=== PATIENT | male | born 1945 | race African-American/Black ===

== ENCOUNTER 2021-07-19 01:21 | Inpatient (IN) | payer OTHER ==
[2021-07-19] MEDS ORDERED: RAPID SEQUENCE INTUBATION KIT NR ONE (01:27)
[2021-07-19] MEDS ORDERED: ETOMIDATE 40 MG/20 ML VIAL IVPUSH ONE (01:35)
[2021-07-19] MEDS ORDERED: ROCURONIUM BROMIDE 50 MG/5 ML VIAL IVPUSH ONE (01:37)
[2021-07-19] MEDS ORDERED: SODIUM CHLORIDE 0.9% 500 ML INFUS.BAG IV ONE (01:44)
[2021-07-19 02:23] LABS: BASO % 0.5 % (0-2.0); EOS % 0.6 % (0-4.5); HEMATOCRIT 36.2 % (35.4-49); HEMOGLOBIN 11.2 GM/dL (11.7-16.9); LYMPH % 15.9 % (8-40); MCH 32.5 pg (25.7-33.7); MCHC 30.9 g/dl (32.0-35.9); MEAN CELL VOLUME 105.1 fl (80-96); MONO % 7.3 % (3.8-10.2); NEUT % 75.7 % (42.8-82.8); PLATELET COUNT 159 10^3/uL (134-434); RBC 3.45 M/mm3 (4.00-5.60); RDW 14.8 % (11.9-15.9); WHITE BLOOD COUNT 16.8 K/mm3 (4.0-10.0)
[2021-07-19] MEDS ORDERED: FENTANYL IVPB 500 MCG/100 ML BAG IVPB SCH ×2 (02:28→02:45)
[2021-07-19 02:30] LABS: INR 1.12 (0.83-1.09); PROTHROMBIN TIME (PATIENT) 13.1 SEC (9.7-13.0)
[2021-07-19 02:32] LABS: EPI CELLS >36 /uL (0-25.1); HYALINE CASTS 21 /uL (0-3.1); PH,URINE 5.5 (5.0-8.0); URINE APPEARANCE TURBID; URINE BACTERIA 4972 /uL (0-1359); URINE BILIRUBIN NEGATIVE (NEGATIVE); URINE COLOR YELLOW; URINE GLUCOSE (UA) NEGATIVE (NEGATIVE); URINE KETONE NEGATIVE (NEGATIVE); URINE LEUK ESTERASE 3+ (NEGATIVE); URINE NITRITE POSITIVE (NEGATIVE); URINE PROTEIN 3+ (NEGATIVE); URINE UROBILINOGEN 0.2 mg/dL (0.2-1.0); URINE WBC 25887 /uL (0-25.8)
[2021-07-19 02:32] LABS: LACTIC ACID 2.5 mmol/L (0.4-2.0)
[2021-07-19 02:33] LABS: ACTIVATED PTT 29.2 SECONDS (25.2-36.5)
[2021-07-19] MEDS ORDERED: VANCOMYCIN 1 GM in D5W (PRE-DOCKED) 1,000 MG/250 ML IVPB ONE (02:36)
[2021-07-19] MEDS ORDERED: PIPERACILLIN/TAZOB 4.5 GM 4.5 GM in DEXTROSE 5%-WATER 100 ML IVPB ONE (02:36)
[2021-07-19 02:37] LABS: BLOOD UREA NITROGEN 94.3 mg/dL (7-18); CALCIUM 11.4 mg/dL (8.5-10.1)
[2021-07-19] MEDS ORDERED: MIDAZOLAM HCL 2 MG/2 ML SINGLE DOSE VIAL IVPUSH ONE (02:39)
[2021-07-19] MEDS ORDERED: MIDAZOLAM HCL 2 MG/2 ML SINGLE DOSE VIAL ONE (02:40)
[2021-07-19 02:41] LABS: CREATININE 5.3 mg/dL (0.55-1.3)
[2021-07-19 02:42] LABS: BILIRUBIN,TOTAL 0.4 mg/dL (0.2-1); TOT PROT 7.8 g/dl (6.4-8.2)
[2021-07-19] MEDS ORDERED: PIPERACILLIN/TAZOB 3.375 GM 3.375 GM in DEXTROSE 5%-WATER - 50 ML IVPB ONE (02:43)
[2021-07-19] MEDS ORDERED: FENTANYL NS IVPB 500 MCG/100 ML BAG IVPB ONE (02:44)
[2021-07-19] MEDS ORDERED: SODIUM CHLORIDE 0.45% 1,000 ML IV SCH ×3 (02:45→08:15)
[2021-07-19] MEDS: FENTANYL NS IVPB 500 MCG/100 ML BAG IVPB SCH ×2 (02:53→21:28)
[2021-07-19] MEDS ORDERED: MIDAZOLAM IN 0.9 % SOD.CHLORID 1 MG/1 ML PLAST..BAG ONE (02:58)
[2021-07-19 03:03] LABS: YEAST NONE SEEN (NEGATIVE)
[2021-07-19] MEDS: MIDAZOLAM IN 0.9 % SOD.CHLORID 100 MG/100 ML PLAST..BAG IVPB SCH ×2 (03:09→21:27)
[2021-07-19] MEDS ORDERED: PIPERACILLIN/TAZOB 3.375 GM 3.375 GM/50 ML BAG IVPB ONE (03:12)
[2021-07-19] MEDS ORDERED: VANCOMYCIN 1 GRAM (PRE-DOCKED) 1,000 MG/250 ML BAG IVPB ONE (03:46)
[2021-07-19 04:03] LABS: ARTERIAL BLD GAS O2 SATURATION 91.7 % (95-98); ARTERIAL BLOOD GAS BASE EXCESS -0.2 mmol/L (-2-2); ARTERIAL BLOOD GAS PO2 65.2 mmHg (80-100); ARTERIAL BLOOD GAS pH 7.351 (7.350-7.450)
[2021-07-19 04:04] LABS: ALLENS TEST POSITIVE
[2021-07-19 04:05] LABS: VENT MODE A/C; VENT RATE 20
[2021-07-19] MEDS: INSULIN SLIDING SCALE (NOVOLOG) 1 VIAL SQ SCH ×4 (06:20→22:16)
[2021-07-19] MEDS ORDERED: DEXTROSE 50%-WATER 25 GM/50 ML DISP.SYRIN ONE (06:22)
[2021-07-19] MEDS: HEPARIN NA (PORCINE) 5,000 UNITS/ML 1ML VIAL SQ SCH ×3 (06:23→21:23)
[2021-07-19] MEDS ORDERED: DEXTROSE 50%-WATER - 25 GM/50 ML VIAL IVPUSH ONE ×2 (06:27→08:32)
[2021-07-19 07:08] LABS: HEMATOCRIT 34.9 % (35.4-49); HEMOGLOBIN 11.2 GM/dL (11.7-16.9); MCH 33.2 pg (25.7-33.7); MCHC 32.1 g/dl (32.0-35.9); MEAN CELL VOLUME 103.3 fl (80-96); MEAN PLT VOLUME 9.1 fl (7.5-11.1); PLATELET COUNT 151 10^3/uL (134-434); RBC 3.37 M/mm3 (4.00-5.60); RDW 14.1 % (11.9-15.9); WHITE BLOOD COUNT 6.7 K/mm3 (4.0-10.0)
[2021-07-19 07:29] LABS: CALCIUM 10.5 mg/dL (8.5-10.1)
[2021-07-19 07:30] LABS: ALBUMIN 2.5 g/dl (3.4-5.0); MAGNESIUM 2.4 mg/dL (1.8-2.4)
[2021-07-19 07:33] LABS: CREATININE 5.2 mg/dL (0.55-1.3); PHOSPHOROUS 3.4 mg/dL (2.5-4.9)
[2021-07-19 07:34] LABS: BILIRUBIN,TOTAL 0.7 mg/dL (0.2-1)
[2021-07-19] MEDS ORDERED: NOREPINEPHRINE D5W PREMIX 16,000 MCG/500 ML BAG IVPB ONE (08:09)
[2021-07-19] MEDS ORDERED: SODIUM CHLORIDE 1,000 ML IV STA (08:10)
[2021-07-19] MEDS: NOREPINEPHRINE BITARTRATE 16,000 MCG in SODIUM CHLORIDE 484 ML IV SCH ×2 (08:16→21:28)
[2021-07-19] MEDS ORDERED: DEXTROSE 50%-WATER - 25 GM/50 ML VIAL ONE (08:29)
[2021-07-19] MEDS: ACETAMINOPHEN 1000 MG/100 ML VIAL IVPB PRN (08:43)
[2021-07-19] MEDS ORDERED: DEXTROSE 5%-WATER - 50 ML IVPB ONE ×2 (09:20→16:42)
[2021-07-19] MEDS ORDERED: PIPERACILLIN/TAZOBACTAM 2.25 GM VIAL IVPB ONE ×2 (09:20→16:42)
[2021-07-19] MEDS: PANTOPRAZOLE SODIUM 40 MG VIAL IVPUSH SCH (09:41)
[2021-07-19] MEDS: MUPIROCIN 2% TOPICAL OINTMENT FOR DECOLONIZATION NS SCH ×2 (09:52→21:24)
[2021-07-19] MEDS ORDERED: PIPERACILLIN/TAZOB 2.25 GM 2.25 GM in DEXTROSE 5%-WATER - 50 ML IVPB SCH (10:00)
[2021-07-19] MEDS: methylPREDNISolone NA SUCC 125 MG/2 ML VIAL IVPUSH SCH ×2 (10:52→17:00)
[2021-07-19] MEDS: DEXTROSE 5%-0.45% SALINE 1,000 ML IV SCH ×2 (11:06→21:27)
[2021-07-19 11:15] LABS: ANISOCYTOSIS 1+; MACROCYTOSIS 0; PLATELET ESTIMATE DECREASED
[2021-07-19] MEDS: VASOPRESSIN 40 UNITS/100 ML BAG IV SCH ×2 (11:28→21:28)
[2021-07-19] MEDS: PIPERACILLIN/TAZOB 2.25 GM 2.25 GM in DEXTROSE 5%-WATER - 50 ML IVPB SCH (17:01)
[2021-07-19 17:48] LABS: LACTIC ACID 2.1 mmol/L (0.4-2.0)
[2021-07-19] MEDS: CHLORHEXIDINE GLUCONATE 4% CLEANSER FOR DECOLONIZATION TP SCH (21:24)
[2021-07-19] MEDS: NOREPINEPHRINE NS PREMIX 16,000 MCG/500 ML BAG IVPB SCH (22:15)
[2021-07-20] MEDS ORDERED: PIPERACILLIN/TAZOBACTAM 2.25 GM VIAL IVPB ONE ×4 (01:20→15:37)
[2021-07-20] MEDS ORDERED: DEXTROSE 5%-WATER - 50 ML IVPB ONE ×4 (01:20→15:37)
[2021-07-20] MEDS: PIPERACILLIN/TAZOB 2.25 GM 2.25 GM in DEXTROSE 5%-WATER - 50 ML IVPB SCH ×3 (01:21→17:02)
[2021-07-20] MEDS: methylPREDNISolone NA SUCC 125 MG/2 ML VIAL IVPUSH SCH ×3 (01:21→17:04)
[2021-07-20] MEDS: FENTANYL NS IVPB 500 MCG/100 ML BAG IVPB SCH (05:32)
[2021-07-20] MEDS: MIDAZOLAM IN 0.9 % SOD.CHLORID 100 MG/100 ML PLAST..BAG IVPB SCH ×2 (05:33→17:04)
[2021-07-20] MEDS: HEPARIN NA (PORCINE) 5,000 UNITS/ML 1ML VIAL SQ SCH ×3 (05:34→20:59)
[2021-07-20] MEDS: INSULIN SLIDING SCALE (NOVOLOG) 1 VIAL SQ SCH ×4 (06:35→22:23)
[2021-07-20 06:46] LABS: BASO % 0.3 % (0-2.0); HEMATOCRIT 31.1 % (35.4-49); HEMOGLOBIN 10.1 GM/dL (11.7-16.9); LYMPH % 3.7 % (8-40); MCH 33.2 pg (25.7-33.7); MCHC 32.4 g/dl (32.0-35.9); MEAN CELL VOLUME 102.6 fl (80-96); MEAN PLT VOLUME 9.5 fl (7.5-11.1); MONO % 3.3 % (3.8-10.2); NEUT % 92.7 % (42.8-82.8); PLATELET COUNT 134 10^3/uL (134-434); RBC 3.04 M/mm3 (4.00-5.60); RDW 13.9 % (11.9-15.9); WHITE BLOOD COUNT 14.1 K/mm3 (4.0-10.0)
[2021-07-20 07:03] LABS: LACTIC ACID 3.2 mmol/L (0.4-2.0)
[2021-07-20 07:13] LABS: BLOOD UREA NITROGEN 98.8 mg/dL (7-18); CALCIUM 10.3 mg/dL (8.5-10.1)
[2021-07-20 07:14] LABS: ALBUMIN 2.2 g/dl (3.4-5.0); MAGNESIUM 2.5 mg/dL (1.8-2.4)
[2021-07-20 07:16] LABS: CREATININE 5.3 mg/dL (0.55-1.3); PHOSPHOROUS 3.6 mg/dL (2.5-4.9)
[2021-07-20 07:17] LABS: BILIRUBIN,TOTAL 0.4 mg/dL (0.2-1)
[2021-07-20 07:18] LABS: TOT PROT 6.6 g/dl (6.4-8.2)
[2021-07-20] MEDS ORDERED: SODIUM ZIRCONIUM CYCLOSILICATE (LOKELMA) 5 GM PACKET PO ONE (09:08)
[2021-07-20] MEDS ORDERED: SODIUM CHLORIDE 0.45% 1,000 ML IV SCH (09:15)
[2021-07-20] MEDS: PANTOPRAZOLE SODIUM 40 MG VIAL IVPUSH SCH (09:22)
[2021-07-20] MEDS: MUPIROCIN 2% TOPICAL OINTMENT FOR DECOLONIZATION NS SCH ×2 (10:07→20:59)
[2021-07-20] MEDS: SODIUM CHLORIDE 0.45% 1,000 ML IV SCH (11:07)
[2021-07-20 11:38] LABS: LACTIC ACID 3.1 mmol/L (0.4-2.0)
[2021-07-20] MEDS: VASOPRESSIN 40 UNITS/100 ML BAG IV SCH (12:07)
[2021-07-20 12:21] LABS: ANISOCYTOSIS 1+; MACROCYTOSIS 0; PLATELET ESTIMATE DECREASED; TEAR DROP CELLS 1+
[2021-07-20] MEDS: MEROPENEM 500 MG in DEXTROSE 5%-WATER 100 ML IVPB SCH ×2 (18:47→22:23)
[2021-07-20] MEDS: CHLORHEXIDINE GLUCONATE 4% CLEANSER FOR DECOLONIZATION TP SCH (20:59)
[2021-07-20] MEDS: NOREPINEPHRINE NS PREMIX 16,000 MCG/500 ML BAG IVPB SCH (21:36)
[2021-07-20] MEDS ORDERED: PT OWN MED DRAWER 7, Y5N ONE (22:00)
[2021-07-21] MEDS: methylPREDNISolone NA SUCC 125 MG/2 ML VIAL IVPUSH SCH ×2 (02:00→09:03)
[2021-07-21] MEDS: MIDAZOLAM IN 0.9 % SOD.CHLORID 100 MG/100 ML PLAST..BAG IVPB SCH (03:12)
[2021-07-21] MEDS: FENTANYL NS IVPB 500 MCG/100 ML BAG IVPB SCH (03:13)
[2021-07-21] MEDS: HEPARIN NA (PORCINE) 5,000 UNITS/ML 1ML VIAL SQ SCH ×2 (05:54→14:20)
[2021-07-21 06:16] LABS: ARTERIAL BLD GAS O2 SATURATION 94.6 % (95-98); ARTERIAL BLOOD GAS PO2 77.8 mmHg (80-100); ARTERIAL BLOOD GAS pH 7.318 (7.350-7.450)
[2021-07-21] MEDS: INSULIN SLIDING SCALE (NOVOLOG) 1 VIAL SQ SCH ×4 (06:18→21:54)
[2021-07-21 06:34] LABS: ALLENS TEST POSITIVE
[2021-07-21 06:35] LABS: VENT MODE A/C; VENT RATE 20
[2021-07-21 07:07] LABS: CHLORIDE 113 mmol/L (98-107); SODIUM 145 mmol/L (136-145)
[2021-07-21 07:15] LABS: ANION GAP 9 MMOL/L (8-16); CALCIUM 10.5 mg/dL (8.5-10.1); CO2 22 mmol/L (21-32)
[2021-07-21 07:16] LABS: GLUCOSE,RANDOM 99 mg/dL (74-106); MAGNESIUM 2.3 mg/dL (1.8-2.4)
[2021-07-21 07:18] LABS: CREATININE 4.5 mg/dL (0.55-1.3); SGOT/AST 50 U/L (15-37); SGPT/ALT 53 U/L (13-61)
[2021-07-21 07:19] LABS: PHOSPHOROUS 5.3 mg/dL (2.5-4.9)
[2021-07-21 07:20] LABS: BILIRUBIN,TOTAL 0.4 mg/dL (0.2-1); TOT PROT 6.4 g/dl (6.4-8.2)
[2021-07-21 07:21] LABS: ALK PHOS 57 U/L (45-117)
[2021-07-21 07:22] LABS: HEMATOCRIT 31.4 % (35.4-49); HEMOGLOBIN 10.2 GM/dL (11.7-16.9); MCH 32.9 pg (25.7-33.7); MCHC 32.3 g/dl (32.0-35.9); MEAN CELL VOLUME 101.7 fl (80-96); MEAN PLT VOLUME 9.7 fl (7.5-11.1); PLATELET COUNT 133 10^3/uL (134-434); RBC 3.09 M/mm3 (4.00-5.60); RDW 14.3 % (11.9-15.9); WHITE BLOOD COUNT 13.1 K/mm3 (4.0-10.0)
[2021-07-21 07:30] LABS: BLOOD UREA NITROGEN 116.7 mg/dL (7-18)
[2021-07-21] MEDS ORDERED: MEROPENEM 500 MG VIAL (RESTRICTED TO ID) IVPB ONE ×2 (07:55→21:27)
[2021-07-21] MEDS ORDERED: DEXTROSE 5%-WATER 100 ML IVPB ONE ×2 (07:55→21:27)
[2021-07-21] MEDS: MEROPENEM 500 MG in DEXTROSE 5%-WATER 100 ML IVPB SCH ×2 (09:00→21:29)
[2021-07-21] MEDS: PANTOPRAZOLE SODIUM 40 MG VIAL IVPUSH SCH (09:03)
[2021-07-21] MEDS: MUPIROCIN 2% TOPICAL OINTMENT FOR DECOLONIZATION NS SCH ×2 (09:03→21:53)
[2021-07-21 11:17] LABS: ANISOCYTOSIS 1+; MACROCYTOSIS 1+; PLATELET ESTIMATE DECREASED
[2021-07-21] MEDS: HYDROCORTISONE SOD SUCCINATE 100 MG/2 ML VIAL IVPUSH SCH ×2 (14:19→20:02)
[2021-07-21] MEDS: SODIUM CHLORIDE 0.45% 1,000 ML IV SCH (14:20)
[2021-07-21] MEDS: PROPOFOL 1,000,000 MCG/100 ML VIAL IVPUSH SCH ×2 (15:30→23:41)
[2021-07-21] MEDS ORDERED: METOPROLOL TARTRATE 5 MG/5 ML VIAL IVPUSH PRN (15:49)
[2021-07-21] MEDS ORDERED: NOREPINEPHRINE BITARTRATE 16,000 MCG in SODIUM CHLORIDE 484 ML IV SCH (17:30)
[2021-07-21] MEDS ORDERED: HEPARIN NA (PORCINE) 5,000 UNITS/ML 1ML VIAL IVPUSH PRN (19:18)
[2021-07-21] MEDS: CHLORHEXIDINE GLUCONATE 4% CLEANSER FOR DECOLONIZATION TP SCH (21:29)
[2021-07-21] MEDS: HEPARIN - 25,000 UNIT in SODIUM CHLORIDE 495 ML IV SCH (23:35)
[2021-07-22] MEDS: SODIUM CHLORIDE 0.45% 1,000 ML IV SCH ×2 (01:27→10:33)
[2021-07-22] MEDS: HYDROCORTISONE SOD SUCCINATE 100 MG/2 ML VIAL IVPUSH SCH (05:10)
[2021-07-22] MEDS: INSULIN SLIDING SCALE (NOVOLOG) 1 VIAL SQ SCH ×4 (06:53→21:25)
[2021-07-22 07:31] LABS: HEMATOCRIT 31.4 % (35.4-49); HEMOGLOBIN 10.1 GM/dL (11.7-16.9); MCH 32.6 pg (25.7-33.7); MCHC 32.1 g/dl (32.0-35.9); MEAN CELL VOLUME 101.6 fl (80-96); MEAN PLT VOLUME 10.2 fl (7.5-11.1); PLATELET COUNT 152 10^3/uL (134-434); RBC 3.09 M/mm3 (4.00-5.60); RDW 14.4 % (11.9-15.9); WHITE BLOOD COUNT 14.6 K/mm3 (4.0-10.0)
[2021-07-22 07:47] LABS: CHLORIDE 113 mmol/L (98-107); SODIUM 146 mmol/L (136-145)
[2021-07-22 08:07] LABS: ALBUMIN 1.8 g/dl (3.4-5.0)
[2021-07-22 08:08] LABS: CALCIUM 9.8 mg/dL (8.5-10.1)
[2021-07-22 08:09] LABS: ANION GAP 11 MMOL/L (8-16); CO2 22 mmol/L (21-32); GLUCOSE,RANDOM 135 mg/dL (74-106); SGPT/ALT 58 U/L (13-61)
[2021-07-22 08:10] LABS: ALK PHOS 64 U/L (45-117); BILIRUBIN,TOTAL 0.4 mg/dL (0.2-1); TOT PROT 6.3 g/dl (6.4-8.2)
[2021-07-22 08:11] LABS: CREATININE 4.4 mg/dL (0.55-1.3); SGOT/AST 44 U/L (15-37)
[2021-07-22] MEDS ORDERED: DEXTROSE 5%-WATER 100 ML IVPB ONE ×2 (09:28→21:12)
[2021-07-22] MEDS ORDERED: MEROPENEM 500 MG VIAL (RESTRICTED TO ID) IVPB ONE ×2 (09:28→21:11)
[2021-07-22] MEDS: HEPARIN NA (PORCINE) 5,000 UNITS/ML 1ML VIAL IVPUSH PRN ×2 (09:29→16:47)
[2021-07-22] MEDS: PANTOPRAZOLE SODIUM 40 MG VIAL IVPUSH SCH (09:35)
[2021-07-22] MEDS: MUPIROCIN 2% TOPICAL OINTMENT FOR DECOLONIZATION NS SCH ×2 (09:36→21:24)
[2021-07-22] MEDS: MEROPENEM 500 MG in DEXTROSE 5%-WATER 100 ML IVPB SCH ×2 (09:36→21:24)
[2021-07-22 10:47] LABS: ANISOCYTOSIS 0; MACROCYTOSIS 1+; PLATELET ESTIMATE DECREASED; TEAR DROP CELLS 1+
[2021-07-22] MEDS ORDERED: HYDROCORTISONE SOD SUCCINATE 100 MG/2 ML VIAL IVPUSH SCH ×2 (11:15→11:26)
[2021-07-22] MEDS ORDERED: levETIRAcetam 500 MG/5 ML INJECTION VIAL IVPB ONE (14:11)
[2021-07-22] MEDS ORDERED: LORazepam 2 MG/ML SDV VIAL IVPUSH ONE (14:30)
[2021-07-22] MEDS ORDERED: PT OWN MED DRAWER 7, Y5N ONE ×3 (15:47→23:48)
[2021-07-22] MEDS: PROPOFOL 1,000,000 MCG/100 ML VIAL IVPUSH SCH (16:43)
[2021-07-22] MEDS: NOREPINEPHRINE NS PREMIX 16,000 MCG/500 ML BAG IVPB SCH ×2 (16:44→23:30)
[2021-07-22] MEDS ORDERED: FENTANYL NS IVPB 500 MCG/100 ML BAG IVPB SCH (20:30)
[2021-07-22] MEDS: CHLORHEXIDINE GLUCONATE 4% CLEANSER FOR DECOLONIZATION TP SCH (21:24)
[2021-07-23] MEDS: SODIUM CHLORIDE 0.45% 1,000 ML IV SCH (00:03)
[2021-07-23] MEDS: INSULIN SLIDING SCALE (NOVOLOG) 1 VIAL SQ SCH ×4 (06:23→21:54)
[2021-07-23 07:58] LABS: HEMATOCRIT 29.3 % (35.4-49); HEMOGLOBIN 9.5 GM/dL (11.7-16.9); MCH 32.4 pg (25.7-33.7); MCHC 32.5 g/dl (32.0-35.9); MEAN CELL VOLUME 99.7 fl (80-96); MEAN PLT VOLUME 9.9 fl (7.5-11.1); PLATELET COUNT 131 10^3/uL (134-434); RBC 2.94 M/mm3 (4.00-5.60); RDW 14.4 % (11.9-15.9); WHITE BLOOD COUNT 11.8 K/mm3 (4.0-10.0)
[2021-07-23 08:14] LABS: CHLORIDE 115 mmol/L (98-107); SODIUM 147 mmol/L (136-145)
[2021-07-23 08:16] LABS: ANION GAP 11 MMOL/L (8-16); CALCIUM 9.4 mg/dL (8.5-10.1); CO2 21 mmol/L (21-32); GLUCOSE,RANDOM 109 mg/dL (74-106)
[2021-07-23 08:17] LABS: MAGNESIUM 2.6 mg/dL (1.8-2.4)
[2021-07-23 08:20] LABS: PHOSPHOROUS 4.8 mg/dL (2.5-4.9)
[2021-07-23 08:25] LABS: BLOOD UREA NITROGEN 137.9 mg/dL (7-18)
[2021-07-23] MEDS ORDERED: MEROPENEM 500 MG VIAL (RESTRICTED TO ID) IVPB ONE (09:01)
[2021-07-23] MEDS ORDERED: DEXTROSE 5%-WATER 100 ML IVPB ONE (09:01)
[2021-07-23] MEDS ORDERED: HYDROCORTISONE SOD SUCCINATE 100 MG/2 ML VIAL IVPUSH SCH (09:49)
[2021-07-23] MEDS: MEROPENEM 500 MG in DEXTROSE 5%-WATER 100 ML IVPB SCH ×2 (10:03→22:49)
[2021-07-23] MEDS: PANTOPRAZOLE SODIUM 40 MG VIAL IVPUSH SCH (10:04)
[2021-07-23] MEDS: levETIRAcetam 500 MG/5 ML INJECTION VIAL IVPB SCH ×2 (10:04→21:27)
[2021-07-23] MEDS: MUPIROCIN 2% TOPICAL OINTMENT FOR DECOLONIZATION NS SCH ×2 (10:09→21:48)
[2021-07-23] MEDS ORDERED: RAPID SEQUENCE INTUBATION KIT NR ONE (10:59)
[2021-07-23] MEDS: PROPOFOL 1,000,000 MCG/100 ML VIAL IVPB SCH (11:50)
[2021-07-23] MEDS: HEPARIN - 25,000 UNIT in SODIUM CHLORIDE 495 ML IV SCH ×2 (11:52→18:38)
[2021-07-23] MEDS: DEXAMETHASONE SOD PHOSPHATE 10 MG/1 ML VIAL IVPUSH SCH ×2 (11:58→18:37)
[2021-07-23] MEDS: CHLORHEXIDINE GLUCONATE 4% CLEANSER FOR DECOLONIZATION TP SCH (21:48)
[2021-07-24] MEDS: DEXAMETHASONE SOD PHOSPHATE 10 MG/1 ML VIAL IVPUSH SCH ×4 (02:44→17:30)
[2021-07-24] MEDS: PROPOFOL 1,000,000 MCG/100 ML VIAL IVPB SCH (02:47)
[2021-07-24] MEDS: INSULIN SLIDING SCALE (NOVOLOG) 1 VIAL SQ SCH ×4 (06:07→21:26)
[2021-07-24 06:42] LABS: HEMATOCRIT 27.3 % (35.4-49); HEMOGLOBIN 9.1 GM/dL (11.7-16.9); MCH 33.6 pg (25.7-33.7); MCHC 33.3 g/dl (32.0-35.9); MEAN CELL VOLUME 100.7 fl (80-96); MEAN PLT VOLUME 9.7 fl (7.5-11.1); PLATELET COUNT 127 10^3/uL (134-434); RBC 2.71 M/mm3 (4.00-5.60); RDW 14.1 % (11.9-15.9)
[2021-07-24 07:20] LABS: ANION GAP 10 MMOL/L (8-16); BLOOD UREA NITROGEN 148.6 mg/dL (7-18); CALCIUM 9.2 mg/dL (8.5-10.1); CHLORIDE 115 mmol/L (98-107); CO2 22 mmol/L (21-32); GLUCOSE,RANDOM 122 mg/dL (74-106); MAGNESIUM 2.6 mg/dL (1.8-2.4); PHOSPHOROUS 6.4 mg/dL (2.5-4.9); SODIUM 146 mmol/L (136-145)
[2021-07-24] MEDS ORDERED: DEXTROSE 5%-WATER 100 ML IVPB ONE ×2 (09:14→21:27)
[2021-07-24] MEDS ORDERED: MEROPENEM 500 MG VIAL (RESTRICTED TO ID) IVPB ONE ×2 (09:14→21:27)
[2021-07-24] MEDS: levETIRAcetam 500 MG/5 ML INJECTION VIAL IVPB SCH ×2 (09:17→21:28)
[2021-07-24] MEDS: MEROPENEM 500 MG in DEXTROSE 5%-WATER 100 ML IVPB SCH ×2 (09:17→21:28)
[2021-07-24] MEDS: PANTOPRAZOLE SODIUM 40 MG VIAL IVPUSH SCH (09:18)
[2021-07-24] MEDS ORDERED: CEFTRIAXONE 1 GM in DEXTROSE 5%-WATER - 50 ML IVPB SCH (10:00)
[2021-07-24] MEDS: DEXMEDETOMIDINE IN 0.9 % NACL 400 MCG/100 ML VIAL IVPB SCH (13:02)
[2021-07-24 13:20] VITALS: BMI 25.9
[2021-07-24] MEDS ORDERED: PT OWN MED DRAWER 7, Y5N ONE (15:51)
[2021-07-24] MEDS: CHLORHEXIDINE GLUCONATE 4% CLEANSER FOR DECOLONIZATION TP SCH (21:28)
[2021-07-25] MEDS: DEXAMETHASONE SOD PHOSPHATE 10 MG/1 ML VIAL IVPUSH SCH ×3 (02:45→19:10)
[2021-07-25 06:26] LABS: HEMATOCRIT 29.6 % (35.4-49); HEMOGLOBIN 9.7 GM/dL (11.7-16.9); MCH 32.7 pg (25.7-33.7); MCHC 32.8 g/dl (32.0-35.9); MEAN CELL VOLUME 99.6 fl (80-96); PLATELET COUNT 144 10^3/uL (134-434); RBC 2.97 M/mm3 (4.00-5.60); WHITE BLOOD COUNT 9.4 K/mm3 (4.0-10.0)
[2021-07-25] MEDS: INSULIN SLIDING SCALE (NOVOLOG) 1 VIAL SQ SCH ×4 (06:26→21:36)
[2021-07-25] MEDS: DEXMEDETOMIDINE IN 0.9 % NACL 400 MCG/100 ML VIAL IVPB SCH ×2 (06:27→21:35)
[2021-07-25 07:37] LABS: ANION GAP 10 MMOL/L (8-16); BLOOD UREA NITROGEN 146.6 mg/dL (7-18); CALCIUM 8.6 mg/dL (8.5-10.1); CHLORIDE 117 mmol/L (98-107); CO2 21 mmol/L (21-32); CREATININE 3.7 mg/dL (0.55-1.3); GLUCOSE,RANDOM 163 mg/dL (74-106); MAGNESIUM 2.3 mg/dL (1.8-2.4); PHOSPHOROUS 6.2 mg/dL (2.5-4.9); SODIUM 148 mmol/L (136-145)
[2021-07-25] MEDS ORDERED: DEXTROSE 5%-WATER 100 ML IVPB ONE ×2 (10:41→21:27)
[2021-07-25] MEDS ORDERED: MEROPENEM 500 MG VIAL (RESTRICTED TO ID) IVPB ONE ×2 (10:41→21:26)
[2021-07-25] MEDS: PANTOPRAZOLE SODIUM 40 MG VIAL IVPUSH SCH (10:51)
[2021-07-25] MEDS: MEROPENEM 500 MG in DEXTROSE 5%-WATER 100 ML IVPB SCH ×2 (10:51→21:33)
[2021-07-25] MEDS: levETIRAcetam 500 MG/5 ML INJECTION VIAL IVPB SCH ×2 (10:51→21:33)
[2021-07-25] MEDS ORDERED: SODIUM CHLORIDE 0.45% 1,000 ML IV SCH (14:45)
[2021-07-25] MEDS: CHLORHEXIDINE GLUCONATE 4% CLEANSER FOR DECOLONIZATION TP SCH (21:34)
[2021-07-25] MEDS: HEPARIN - 25,000 UNIT in SODIUM CHLORIDE 495 ML IV SCH (21:34)
[2021-07-26] MEDS: DEXAMETHASONE SOD PHOSPHATE 10 MG/1 ML VIAL IVPUSH SCH ×3 (02:12→18:08)
[2021-07-26] MEDS: INSULIN SLIDING SCALE (NOVOLOG) 1 VIAL SQ SCH ×4 (06:56→21:45)
[2021-07-26] MEDS: DEXMEDETOMIDINE IN 0.9 % NACL 400 MCG/100 ML VIAL IVPB SCH ×2 (08:30→18:08)
[2021-07-26] MEDS ORDERED: MEROPENEM 500 MG VIAL (RESTRICTED TO ID) IVPB ONE ×2 (09:06→21:10)
[2021-07-26] MEDS ORDERED: DEXTROSE 5%-WATER 100 ML IVPB ONE ×2 (09:07→21:10)
[2021-07-26] MEDS: levETIRAcetam 500 MG/5 ML INJECTION VIAL IVPB SCH ×2 (09:09→21:16)
[2021-07-26] MEDS: PANTOPRAZOLE SODIUM 40 MG VIAL IVPUSH SCH (09:09)
[2021-07-26] MEDS: MEROPENEM 500 MG in DEXTROSE 5%-WATER 100 ML IVPB SCH ×2 (09:11→21:16)
[2021-07-26 09:22] LABS: HEMATOCRIT 30.4 % (35.4-49); HEMOGLOBIN 9.9 GM/dL (11.7-16.9); MCH 32.4 pg (25.7-33.7); MCHC 32.6 g/dl (32.0-35.9); MEAN CELL VOLUME 99.4 fl (80-96); MEAN PLT VOLUME 10.3 fl (7.5-11.1); PLATELET COUNT 166 10^3/uL (134-434); RBC 3.06 M/mm3 (4.00-5.60)
[2021-07-26 09:50] LABS: CHLORIDE 118 mmol/L (98-107); SODIUM 147 mmol/L (136-145)
[2021-07-26 09:52] LABS: ALBUMIN 1.7 g/dl (3.4-5.0)
[2021-07-26 09:53] LABS: ANION GAP 6 MMOL/L (8-16); CALCIUM 8.9 mg/dL (8.5-10.1); CO2 23 mmol/L (21-32)
[2021-07-26 09:54] LABS: GLUCOSE,RANDOM 162 mg/dL (74-106)
[2021-07-26 09:55] LABS: MAGNESIUM 2.8 mg/dL (1.8-2.4)
[2021-07-26 09:58] LABS: CREATININE 2.9 mg/dL (0.55-1.3); PHOSPHOROUS 4.4 mg/dL (2.5-4.9); SGPT/ALT 46 U/L (13-61)
[2021-07-26 09:59] LABS: BILIRUBIN,TOTAL 0.3 mg/dL (0.2-1); SGOT/AST 18 U/L (15-37); TOT PROT 5.6 g/dl (6.4-8.2)
[2021-07-26 10:01] LABS: ALK PHOS 62 U/L (45-117)
[2021-07-26] MEDS: SODIUM CHLORIDE 0.45% 1,000 ML IV SCH ×2 (11:25→17:00)
[2021-07-26] MEDS: HEPARIN - 25,000 UNIT in SODIUM CHLORIDE 495 ML IV SCH (16:30)
[2021-07-26] MEDS: CHLORHEXIDINE GLUCONATE 4% CLEANSER FOR DECOLONIZATION TP SCH (21:16)
[2021-07-26] MEDS: ACETAMINOPHEN 1000 MG/100 ML VIAL IVPB PRN (21:58)
[2021-07-27] MEDS: DEXAMETHASONE SOD PHOSPHATE 10 MG/1 ML VIAL IVPUSH SCH (01:41)
[2021-07-27 06:22] LABS: HEMATOCRIT 29.9 % (35.4-49); HEMOGLOBIN 9.8 GM/dL (11.7-16.9); MCH 32.5 pg (25.7-33.7); MCHC 32.8 g/dl (32.0-35.9); MEAN CELL VOLUME 99.1 fl (80-96); MEAN PLT VOLUME 10.1 fl (7.5-11.1); PLATELET COUNT 166 10^3/uL (134-434); RBC 3.02 M/mm3 (4.00-5.60); RDW 13.8 % (11.9-15.9); WHITE BLOOD COUNT 13.6 K/mm3 (4.0-10.0)
[2021-07-27] MEDS: INSULIN SLIDING SCALE (NOVOLOG) 1 VIAL SQ SCH ×4 (06:23→22:19)
[2021-07-27 06:39] LABS: CHLORIDE 118 mmol/L (98-107); SODIUM 145 mmol/L (136-145)
[2021-07-27 06:41] LABS: CALCIUM 8.4 mg/dL (8.5-10.1)
[2021-07-27 06:42] LABS: ALBUMIN 1.6 g/dl (3.4-5.0); ANION GAP 6 MMOL/L (8-16); CO2 21 mmol/L (21-32); GLUCOSE,RANDOM 151 mg/dL (74-106); MAGNESIUM 2.7 mg/dL (1.8-2.4)
[2021-07-27 06:45] LABS: CREATININE 2.7 mg/dL (0.55-1.3); PHOSPHOROUS 4.4 mg/dL (2.5-4.9); SGOT/AST 28 U/L (15-37); SGPT/ALT 50 U/L (13-61)
[2021-07-27 06:46] LABS: BILIRUBIN,TOTAL 0.3 mg/dL (0.2-1)
[2021-07-27 06:47] LABS: TOT PROT 5.4 g/dl (6.4-8.2)
[2021-07-27 06:48] LABS: ALK PHOS 58 U/L (45-117)
[2021-07-27 07:05] LABS: BLOOD UREA NITROGEN 125.6 mg/dL (7-18)
[2021-07-27] MEDS ORDERED: FUROSEMIDE 40 MG/4 ML INJECTABLE VIAL IVPUSH ONE (08:00)
[2021-07-27] MEDS ORDERED: DEXTROSE 5%-WATER 100 ML IVPB ONE ×2 (08:18→21:46)
[2021-07-27] MEDS ORDERED: MEROPENEM 500 MG VIAL (RESTRICTED TO ID) IVPB ONE ×2 (08:18→21:46)
[2021-07-27] MEDS ORDERED: FUROSEMIDE 40 MG/4 ML INJECTABLE VIAL ONE (09:05)
[2021-07-27] MEDS: levETIRAcetam 500 MG/5 ML INJECTION VIAL IVPB SCH ×2 (09:11→22:05)
[2021-07-27] MEDS: PANTOPRAZOLE SODIUM 40 MG VIAL IVPUSH SCH (09:28)
[2021-07-27] MEDS: MEROPENEM 500 MG in DEXTROSE 5%-WATER 100 ML IVPB SCH ×2 (09:28→21:49)
[2021-07-27] MEDS ORDERED: PT OWN MED DRAWER 7, Y5N ONE ×2 (15:37→17:20)
[2021-07-27] MEDS: DEXMEDETOMIDINE IN 0.9 % NACL 400 MCG/100 ML VIAL IVPB SCH (19:35)
[2021-07-27] MEDS: CHLORHEXIDINE GLUCONATE 4% CLEANSER FOR DECOLONIZATION TP SCH (22:19)
[2021-07-28] MEDS ORDERED: METOCLOPRAMIDE HCL INJECTION 10 MG/2 ML VIAL IVPUSH ONE (00:52)
[2021-07-28 06:36] LABS: HEMATOCRIT 29.1 % (35.4-49); HEMOGLOBIN 9.6 GM/dL (11.7-16.9); MCH 32.6 pg (25.7-33.7); MCHC 32.8 g/dl (32.0-35.9); MEAN CELL VOLUME 99.4 fl (80-96); PLATELET COUNT 171 10^3/uL (134-434); RBC 2.93 M/mm3 (4.00-5.60); RDW 14.1 % (11.9-15.9); WHITE BLOOD COUNT 15.4 K/mm3 (4.0-10.0)
[2021-07-28 07:05] LABS: CHLORIDE 116 mmol/L (98-107); SODIUM 147 mmol/L (136-145)
[2021-07-28 07:07] LABS: ALBUMIN 1.4 g/dl (3.4-5.0); ANION GAP 8 MMOL/L (8-16); CALCIUM 8.6 mg/dL (8.5-10.1); CO2 23 mmol/L (21-32)
[2021-07-28 07:08] LABS: GLUCOSE,RANDOM 105 mg/dL (74-106)
[2021-07-28 07:10] LABS: CREATININE 2.4 mg/dL (0.55-1.3); SGOT/AST 41 U/L (15-37); SGPT/ALT 65 U/L (13-61)
[2021-07-28 07:11] LABS: PHOSPHOROUS 4.1 mg/dL (2.5-4.9)
[2021-07-28 07:12] LABS: BILIRUBIN,TOTAL 0.3 mg/dL (0.2-1); TOT PROT 4.9 g/dl (6.4-8.2)
[2021-07-28 07:13] LABS: ALK PHOS 75 U/L (45-117)
[2021-07-28] MEDS: INSULIN SLIDING SCALE (NOVOLOG) 1 VIAL SQ SCH ×4 (07:19→21:46)
[2021-07-28 07:35] LABS: MAGNESIUM 2.3 mg/dL (1.8-2.4)
[2021-07-28 07:54] LABS: BLOOD UREA NITROGEN 120.3 mg/dL (7-18)
[2021-07-28] MEDS ORDERED: MEROPENEM 500 MG VIAL (RESTRICTED TO ID) IVPB ONE ×2 (09:09→21:34)
[2021-07-28] MEDS ORDERED: DEXTROSE 5%-WATER 100 ML IVPB ONE ×2 (09:10→21:34)
[2021-07-28] MEDS: MEROPENEM 500 MG in DEXTROSE 5%-WATER 100 ML IVPB SCH ×2 (09:12→21:37)
[2021-07-28] MEDS: levETIRAcetam 500 MG/5 ML INJECTION VIAL IVPB SCH ×2 (09:14→21:37)
[2021-07-28] MEDS: PANTOPRAZOLE SODIUM 40 MG VIAL IVPUSH SCH (09:14)
[2021-07-28] MEDS ORDERED: ALBUTEROL SO4 0.5 % INH SOLN 2.5 MG/0.5 ML VIAL.NEB. NEB ONE (11:01)
[2021-07-28] MEDS ORDERED: ACETYLCYSTEINE 20% 200MG/ML 4 ML VIAL *FOR ORAL / INH USE ONLY ONE (11:02)
[2021-07-28] MEDS: ACETYLCYSTEINE 20% 200MG/ML 4 ML VIAL *FOR ORAL / INH USE ONLY NEB SCH ×3 (11:30→20:10)
[2021-07-28] MEDS: ALBUTEROL SO4 0.083% IH SOL 2.5 MG/3 ML VIAL.NEB. NEB PRN ×3 (11:30→20:10)
[2021-07-28] MEDS ORDERED: ACETAMINOPHEN 650 MG/20.3 ML ORAL SOLUTION (CUPS) GT PRN (16:03)
[2021-07-28] MEDS: DEXMEDETOMIDINE IN 0.9 % NACL 400 MCG/100 ML VIAL IVPB SCH (16:21)
[2021-07-28] MEDS: HEPARIN - 25,000 UNIT in SODIUM CHLORIDE 495 ML IV SCH (18:57)
[2021-07-28] MEDS ORDERED: DOCUSATE NA 100 MG/10 ML UNIT-DOSE CUPS PO ONE (19:10)
[2021-07-28] MEDS: CHLORHEXIDINE GLUCONATE 4% CLEANSER FOR DECOLONIZATION TP SCH (21:37)
[2021-07-28] MEDS: SENNOSIDES 8.8 MG/5 ML BULK BOTTLE GT SCH (22:27)
[2021-07-29] MEDS: INSULIN SLIDING SCALE (NOVOLOG) 1 VIAL SQ SCH ×4 (06:36→21:38)
[2021-07-29 07:16] LABS: MCH 32.7 pg (25.7-33.7); MCHC 33.4 g/dl (32.0-35.9); MEAN CELL VOLUME 98.1 fl (80-96); PLATELET COUNT 159 10^3/uL (134-434); RBC 2.75 M/mm3 (4.00-5.60); RDW 13.7 % (11.9-15.9); WHITE BLOOD COUNT 12.7 K/mm3 (4.0-10.0)
[2021-07-29 07:37] LABS: CHLORIDE 118 mmol/L (98-107); SODIUM 148 mmol/L (136-145)
[2021-07-29 07:39] LABS: ALBUMIN 1.4 g/dl (3.4-5.0); ANION GAP 8 MMOL/L (8-16); CALCIUM 8.3 mg/dL (8.5-10.1); CO2 22 mmol/L (21-32)
[2021-07-29 07:40] LABS: GLUCOSE,RANDOM 95 mg/dL (74-106); MAGNESIUM 2.1 mg/dL (1.8-2.4)
[2021-07-29 07:42] LABS: CREATININE 2.2 mg/dL (0.55-1.3); SGOT/AST 32 U/L (15-37); SGPT/ALT 58 U/L (13-61)
[2021-07-29 07:44] LABS: BILIRUBIN,TOTAL 0.3 mg/dL (0.2-1); TOT PROT 4.6 g/dl (6.4-8.2)
[2021-07-29 07:45] LABS: ALK PHOS 59 U/L (45-117); BLOOD UREA NITROGEN 105.1 mg/dL (7-18)
[2021-07-29 08:35] LABS: ANISOCYTOSIS 1+; MACROCYTOSIS 1+; PLATELET ESTIMATE DECREASED
[2021-07-29] MEDS: ACETYLCYSTEINE 20% 200MG/ML 4 ML VIAL *FOR ORAL / INH USE ONLY NEB SCH ×4 (08:40→20:35)
[2021-07-29] MEDS: ALBUTEROL SO4 0.083% IH SOL 2.5 MG/3 ML VIAL.NEB. NEB PRN ×4 (08:40→20:36)
[2021-07-29] MEDS ORDERED: DEXTROSE 5%-WATER 100 ML IVPB ONE (09:25)
[2021-07-29] MEDS ORDERED: MEROPENEM 500 MG VIAL (RESTRICTED TO ID) IVPB ONE (09:25)
[2021-07-29] MEDS: levETIRAcetam 500 MG/5 ML INJECTION VIAL IVPB SCH ×2 (09:27→21:23)
[2021-07-29] MEDS: PANTOPRAZOLE SODIUM 40 MG VIAL IVPUSH SCH (09:35)
[2021-07-29] MEDS: MEROPENEM 500 MG in DEXTROSE 5%-WATER 100 ML IVPB SCH (09:35)
[2021-07-29] MEDS: HEPARIN - 25,000 UNIT in SODIUM CHLORIDE 495 ML IV SCH ×5 (10:06→15:54)
[2021-07-29] MEDS: DEXMEDETOMIDINE IN 0.9 % NACL 400 MCG/100 ML VIAL IVPB SCH ×2 (12:19→13:06)
[2021-07-29] MEDS ORDERED: POLYETHYLENE GLYCOL (HEALTHYLAX) 3350 17 GM PACKET PO SCH (12:45)
[2021-07-29] MEDS ORDERED: DEXTROSE 5%-WATER - 50 ML IVPB ONE (13:17)
[2021-07-29] MEDS ORDERED: cefTRIAXone SODIUM 1 GM VIAL ONE (13:17)
[2021-07-29] MEDS: CEFTRIAXONE 1 GM in DEXTROSE 5%-WATER - 50 ML IVPB SCH (13:30)
[2021-07-29] MEDS ORDERED: HEPARIN NA (PORCINE) 5,000 UNITS/ML 1ML VIAL IVPUSH PRN ×2 (13:41)
[2021-07-29] MEDS ORDERED: PROPOFOL 1,000,000 MCG/100 ML VIAL ONE (15:43)
[2021-07-29] MEDS ORDERED: MIDAZOLAM HCL 5 MG/1 ML Single Dose Vial ONE (15:54)
[2021-07-29] MEDS ORDERED: PROPOFOL 200 MG/20 ML VIAL IVPUSH ONE (16:00)
[2021-07-29] MEDS ORDERED: MIDAZOLAM HCL 5 MG/1 ML Single Dose Vial IVPUSH ONE (16:00)
[2021-07-29] MEDS ORDERED: PT OWN MED DRAWER 7, Y5N ONE (21:22)
[2021-07-29] MEDS: CHLORHEXIDINE GLUCONATE 4% CLEANSER FOR DECOLONIZATION TP SCH (21:24)
[2021-07-29] MEDS: SENNOSIDES 8.8 MG/5 ML BULK BOTTLE GT SCH (21:24)
[2021-07-30 06:15] LABS: HEMATOCRIT 25.8 % (35.4-49); HEMOGLOBIN 8.6 GM/dL (11.7-16.9); MCH 32.7 pg (25.7-33.7); MCHC 33.2 g/dl (32.0-35.9); MEAN CELL VOLUME 98.5 fl (80-96); PLATELET COUNT 145 10^3/uL (134-434); RBC 2.62 M/mm3 (4.00-5.60); RDW 13.8 % (11.9-15.9); WHITE BLOOD COUNT 10.9 K/mm3 (4.0-10.0)
[2021-07-30] MEDS: INSULIN SLIDING SCALE (NOVOLOG) 1 VIAL SQ SCH ×4 (06:45→21:39)
[2021-07-30 07:50] LABS: ALBUMIN 1.3 g/dl (3.4-5.0); CALCIUM 8.3 mg/dL (8.5-10.1)
[2021-07-30 07:54] LABS: BILIRUBIN,TOTAL 0.2 mg/dL (0.2-1); PHOSPHOROUS 4.1 mg/dL (2.5-4.9); TOT PROT 4.7 g/dl (6.4-8.2)
[2021-07-30] MEDS: ACETYLCYSTEINE 20% 200MG/ML 4 ML VIAL *FOR ORAL / INH USE ONLY NEB SCH ×4 (08:15→20:14)
[2021-07-30] MEDS: ALBUTEROL SO4 0.083% IH SOL 2.5 MG/3 ML VIAL.NEB. NEB PRN ×4 (08:15→20:15)
[2021-07-30] MEDS: HEPARIN - 25,000 UNIT in SODIUM CHLORIDE 495 ML IV SCH ×3 (10:18→16:03)
[2021-07-30] MEDS ORDERED: MIDAZOLAM HCL 5 MG/1 ML Single Dose Vial IVPUSH ONE (10:30)
[2021-07-30] MEDS ORDERED: ROCURONIUM BROMIDE 50 MG/5 ML VIAL IVPUSH ONE (10:30)
[2021-07-30] MEDS ORDERED: PROPOFOL 200 MG/20 ML VIAL IVPUSH ONE ×2 (10:30)
[2021-07-30] MEDS ORDERED: MIDAZOLAM HCL 5 MG/1 ML Single Dose Vial ONE (10:36)
[2021-07-30] MEDS ORDERED: ROCURONIUM BROMIDE 100 MG/10 ML VIAL ONE (10:37)
[2021-07-30] MEDS: PROPOFOL 1,000,000 MCG/100 ML VIAL IVPB SCH ×2 (11:05→21:40)
[2021-07-30] MEDS ORDERED: cefTRIAXone SODIUM 1 GM VIAL ONE (12:42)
[2021-07-30] MEDS ORDERED: DEXTROSE 5%-WATER - 50 ML IVPB ONE (12:42)
[2021-07-30] MEDS: levETIRAcetam 500 MG/5 ML INJECTION VIAL IVPB SCH ×2 (12:45→21:39)
[2021-07-30] MEDS: CEFTRIAXONE 1 GM in DEXTROSE 5%-WATER - 50 ML IVPB SCH (12:47)
[2021-07-30] MEDS: PANTOPRAZOLE SODIUM 40 MG VIAL IVPUSH SCH (12:57)
[2021-07-30] MEDS: DEXMEDETOMIDINE IN 0.9 % NACL 400 MCG/100 ML VIAL IVPB SCH (16:12)
[2021-07-30] MEDS: AMINO ACIDS/PROTEIN HYDROLYS 30 ML LIQUID.PKT NGT SCH (16:23)
[2021-07-30] MEDS: CHLORHEXIDINE GLUCONATE 4% CLEANSER FOR DECOLONIZATION TP SCH (21:39)
[2021-07-30] MEDS: SENNOSIDES 8.8 MG/5 ML BULK BOTTLE GT SCH (21:39)
[2021-07-31] MEDS ORDERED: DEXTROSE 50%-WATER 25 GM/50 ML DISP.SYRIN ONE ×2 (06:17→12:27)
[2021-07-31] MEDS: INSULIN SLIDING SCALE (NOVOLOG) 1 VIAL SQ SCH ×4 (06:31→21:02)
[2021-07-31] MEDS: PROPOFOL 1,000,000 MCG/100 ML VIAL IVPB SCH (06:31)
[2021-07-31 07:16] LABS: HEMATOCRIT 27.2 % (35.4-49); MCH 32.9 pg (25.7-33.7); MEAN CELL VOLUME 99.5 fl (80-96); MEAN PLT VOLUME 9.9 fl (7.5-11.1); PLATELET COUNT 144 10^3/uL (134-434); RBC 2.73 M/mm3 (4.00-5.60); RDW 14.2 % (11.9-15.9)
[2021-07-31 07:21] LABS: CALCIUM 8.7 mg/dL (8.5-10.1)
[2021-07-31 07:23] LABS: BLOOD UREA NITROGEN 80.4 mg/dL (7-18); MAGNESIUM 2.1 mg/dL (1.8-2.4)
[2021-07-31] MEDS: ACETYLCYSTEINE 20% 200MG/ML 4 ML VIAL *FOR ORAL / INH USE ONLY NEB SCH ×4 (07:25→20:02)
[2021-07-31] MEDS: ALBUTEROL SO4 0.083% IH SOL 2.5 MG/3 ML VIAL.NEB. NEB PRN ×3 (07:25→20:03)
[2021-07-31 07:26] LABS: CREATININE 1.9 mg/dL (0.55-1.3); PHOSPHOROUS 4.3 mg/dL (2.5-4.9)
[2021-07-31] MEDS ORDERED: DEXTROSE 50%-WATER - 25 GM/50 ML VIAL IVPUSH ONE ×3 (07:45→12:30)
[2021-07-31] MEDS ORDERED: DEXTROSE 5%-WATER - 50 ML IVPB ONE (10:12)
[2021-07-31] MEDS ORDERED: cefTRIAXone SODIUM 1 GM VIAL ONE (10:12)
[2021-07-31] MEDS: PANTOPRAZOLE SODIUM 40 MG VIAL IVPUSH SCH (10:15)
[2021-07-31] MEDS: CEFTRIAXONE 1 GM in DEXTROSE 5%-WATER - 50 ML IVPB SCH (10:15)
[2021-07-31] MEDS: AMINO ACIDS/PROTEIN HYDROLYS 30 ML LIQUID.PKT NGT SCH (10:15)
[2021-07-31] MEDS: levETIRAcetam 500 MG/5 ML INJECTION VIAL IVPB SCH ×2 (10:15→21:04)
[2021-07-31] MEDS ORDERED: DEXTROSE 5%-0.45% SALINE 1,000 ML IV SCH (11:15)
[2021-07-31] MEDS ORDERED: DEXTROSE 10%-WATER - 1,000 ML IV SCH (12:45)
[2021-07-31] MEDS ORDERED: HEPARIN - 25,000 UNIT in SODIUM CHLORIDE 495 ML IV SCH (18:45)
[2021-07-31] MEDS: CHLORHEXIDINE GLUCONATE 4% CLEANSER FOR DECOLONIZATION TP SCH (21:01)
[2021-07-31] MEDS: SENNOSIDES 8.8 MG/5 ML BULK BOTTLE GT SCH (21:04)
[2021-08-01] MEDS: INSULIN SLIDING SCALE (NOVOLOG) 1 VIAL SQ SCH ×4 (06:26→23:51)
[2021-08-01 07:09] LABS: HEMATOCRIT 26.3 % (35.4-49); HEMOGLOBIN 8.8 GM/dL (11.7-16.9); MCHC 33.4 g/dl (32.0-35.9); MEAN CELL VOLUME 98.6 fl (80-96); MEAN PLT VOLUME 9.8 fl (7.5-11.1); PLATELET COUNT 166 10^3/uL (134-434); RBC 2.67 M/mm3 (4.00-5.60); RDW 13.9 % (11.9-15.9); WHITE BLOOD COUNT 11.4 K/mm3 (4.0-10.0)
[2021-08-01 07:15] LABS: CALCIUM 8.7 mg/dL (8.5-10.1)
[2021-08-01 07:17] LABS: BLOOD UREA NITROGEN 65.4 mg/dL (7-18)
[2021-08-01 07:19] LABS: CREATININE 1.9 mg/dL (0.55-1.3); PHOSPHOROUS 3.7 mg/dL (2.5-4.9)
[2021-08-01] MEDS: ALBUTEROL SO4 0.083% IH SOL 2.5 MG/3 ML VIAL.NEB. NEB PRN (08:16)
[2021-08-01] MEDS: ACETYLCYSTEINE 20% 200MG/ML 4 ML VIAL *FOR ORAL / INH USE ONLY NEB SCH (08:16)
[2021-08-01] MEDS ORDERED: cefTRIAXone SODIUM 1 GM VIAL ONE (08:42)
[2021-08-01] MEDS ORDERED: DEXTROSE 5%-WATER - 50 ML IVPB ONE (08:43)
[2021-08-01] MEDS: levETIRAcetam 500 MG/5 ML INJECTION VIAL IVPB SCH ×2 (09:01→23:51)
[2021-08-01] MEDS: PANTOPRAZOLE SODIUM 40 MG VIAL IVPUSH SCH (09:01)
[2021-08-01] MEDS: CEFTRIAXONE 1 GM in DEXTROSE 5%-WATER - 50 ML IVPB SCH (09:01)
[2021-08-01] MEDS: AMINO ACIDS/PROTEIN HYDROLYS 30 ML LIQUID.PKT NGT SCH (09:03)
[2021-08-01] MEDS ORDERED: GLUCAGON 1 MG KIT IVPUSH ONE (15:20)
[2021-08-01] MEDS ORDERED: HEPARIN NA (PORCINE) 5,000 UNITS/ML 1ML VIAL IVPUSH PRN ×2 (18:25)
[2021-08-01] MEDS ORDERED: ALBUTEROL SO4 0.083% IH SOL 2.5 MG/3 ML VIAL.NEB. NEB PRN (18:25)
[2021-08-01] MEDS: PROPOFOL 1,000,000 MCG/100 ML VIAL IVPB SCH (18:29)
[2021-08-01] MEDS ORDERED: CHLORHEXIDINE GLUCONATE 4% CLEANSER FOR DECOLONIZATION TP SCH (22:00)
[2021-08-02] MEDS: HEPARIN - 25,000 UNIT in SODIUM CHLORIDE 495 ML IV SCH ×3 (02:29→23:38)
[2021-08-02] MEDS: SENNOSIDES 8.8 MG/5 ML BULK BOTTLE GT SCH ×2 (03:14→22:25)
[2021-08-02] MEDS: ACETAMINOPHEN 650 MG/20.3 ML ORAL SOLUTION (CUPS) GT PRN (03:15)
[2021-08-02] MEDS: INSULIN SLIDING SCALE (NOVOLOG) 1 VIAL SQ SCH ×4 (06:48→22:12)
[2021-08-02 10:20] LABS: HEMATOCRIT 23.9 % (35.4-49); MCHC 33.4 g/dl (32.0-35.9); MEAN CELL VOLUME 98.6 fl (80-96); MEAN PLT VOLUME 8.4 fl (7.5-11.1); PLATELET COUNT 154 10^3/uL (134-434); RBC 2.42 M/mm3 (4.00-5.60); WHITE BLOOD COUNT 8.3 K/mm3 (4.0-10.0)
[2021-08-02] MEDS: DEXTROSE 10%-WATER - 1,000 ML IV SCH ×3 (10:26→23:45)
[2021-08-02] MEDS ORDERED: DEXTROSE 5%-WATER - 50 ML IVPB ONE (10:34)
[2021-08-02] MEDS ORDERED: cefTRIAXone SODIUM 1 GM VIAL ONE (10:34)
[2021-08-02 10:39] LABS: CALCIUM 8.7 mg/dL (8.5-10.1)
[2021-08-02 10:40] LABS: BLOOD UREA NITROGEN 60.2 mg/dL (7-18); MAGNESIUM 1.9 mg/dL (1.8-2.4)
[2021-08-02] MEDS: PANTOPRAZOLE SODIUM 40 MG VIAL IVPUSH SCH (10:40)
[2021-08-02] MEDS: CEFTRIAXONE 1 GM in DEXTROSE 5%-WATER - 50 ML IVPB SCH (10:40)
[2021-08-02] MEDS: levETIRAcetam 500 MG/5 ML INJECTION VIAL IVPB SCH ×2 (10:40→22:11)
[2021-08-02 10:43] LABS: CREATININE 2.1 mg/dL (0.55-1.3); PHOSPHOROUS 3.4 mg/dL (2.5-4.9)
[2021-08-02] MEDS: AMINO ACIDS/PROTEIN HYDROLYS 30 ML LIQUID.PKT NGT SCH (10:47)
[2021-08-03] MEDS: INSULIN SLIDING SCALE (NOVOLOG) 1 VIAL SQ SCH ×4 (06:35→21:40)
[2021-08-03 10:07] LABS: BASO % 0.5 % (0-2.0); EOS % 1.4 % (0-4.5); HEMATOCRIT 21.7 % (35.4-49); HEMOGLOBIN 7.3 GM/dL (11.7-16.9); LYMPH % 11.4 % (8-40); MCH 33.3 pg (25.7-33.7); MCHC 33.7 g/dl (32.0-35.9); MEAN CELL VOLUME 98.8 fl (80-96); MEAN PLT VOLUME 8.8 fl (7.5-11.1); MONO % 11.3 % (3.8-10.2); NEUT % 75.4 % (42.8-82.8); PLATELET COUNT 162 10^3/uL (134-434); RBC 2.19 M/mm3 (4.00-5.60); RDW 14.2 % (11.9-15.9); WHITE BLOOD COUNT 6.3 K/mm3 (4.0-10.0)
[2021-08-03 10:38] LABS: BLOOD UREA NITROGEN 51.6 mg/dL (7-18); CALCIUM 8.7 mg/dL (8.5-10.1)
[2021-08-03] MEDS ORDERED: cefTRIAXone SODIUM 1 GM VIAL ONE (11:35)
[2021-08-03] MEDS ORDERED: DEXTROSE 5%-WATER - 50 ML IVPB ONE (11:35)
[2021-08-03] MEDS: levETIRAcetam 500 MG/5 ML INJECTION VIAL IVPB SCH ×2 (11:44→21:29)
[2021-08-03] MEDS: AMINO ACIDS/PROTEIN HYDROLYS 30 ML LIQUID.PKT NGT SCH (11:46)
[2021-08-03] MEDS: PANTOPRAZOLE SODIUM 40 MG VIAL IVPUSH SCH (11:46)
[2021-08-03] MEDS: CEFTRIAXONE 1 GM in DEXTROSE 5%-WATER - 50 ML IVPB SCH (11:49)
[2021-08-03] MEDS: DEXTROSE 10%-WATER - 1,000 ML IV SCH ×2 (19:14→19:39)
[2021-08-03] MEDS: HEPARIN - 25,000 UNIT in SODIUM CHLORIDE 495 ML IV SCH (19:39)
[2021-08-03] MEDS ORDERED: PT OWN MED DRAWER 7, Y5N ONE (21:23)
[2021-08-03] MEDS: SENNOSIDES 8.8 MG/5 ML BULK BOTTLE GT SCH (21:29)
[2021-08-04] MEDS: INSULIN SLIDING SCALE (NOVOLOG) 1 VIAL SQ SCH ×4 (06:03→22:23)
[2021-08-04 08:49] LABS: BASO % 0.7 % (0-2.0); EOS % 1.9 % (0-4.5); HEMATOCRIT 21.5 % (35.4-49); HEMOGLOBIN 7.3 GM/dL (11.7-16.9); LYMPH % 12.1 % (8-40); MCH 33.3 pg (25.7-33.7); MEAN PLT VOLUME 8.3 fl (7.5-11.1); MONO % 11.3 % (3.8-10.2); PLATELET COUNT 166 10^3/uL (134-434); RBC 2.19 M/mm3 (4.00-5.60); WHITE BLOOD COUNT 5.5 K/mm3 (4.0-10.0)
[2021-08-04 09:18] LABS: ALBUMIN 1.4 g/dl (3.4-5.0); BLOOD UREA NITROGEN 46.3 mg/dL (7-18)
[2021-08-04 09:21] LABS: CREATININE 1.8 mg/dL (0.55-1.3)
[2021-08-04 09:22] LABS: BILIRUBIN,TOTAL 0.3 mg/dL (0.2-1)
[2021-08-04] MEDS: AMINO ACIDS/PROTEIN HYDROLYS 30 ML LIQUID.PKT NGT SCH (11:50)
[2021-08-04] MEDS: levETIRAcetam 500 MG/5 ML INJECTION VIAL IVPB SCH ×2 (11:50→22:23)
[2021-08-04] MEDS: PANTOPRAZOLE SODIUM 40 MG VIAL IVPUSH SCH (11:50)
[2021-08-04] MEDS: POLYETHYLENE GLYCOL (HEALTHYLAX) 3350 17 GM PACKET PO SCH (13:41)
[2021-08-04] MEDS ORDERED: PT OWN MED DRAWER 7, Y5N ONE (22:11)
[2021-08-04] MEDS: ACETAMINOPHEN 650 MG/20.3 ML ORAL SOLUTION (CUPS) GT PRN (22:23)
[2021-08-04] MEDS: APIXABAN 5 MG TABLET PO SCH (22:23)
[2021-08-04] MEDS: SENNOSIDES 8.8 MG/5 ML BULK BOTTLE GT SCH (22:23)
[2021-08-05] MEDS: INSULIN SLIDING SCALE (NOVOLOG) 1 VIAL SQ SCH ×4 (06:13→22:01)
[2021-08-05] MEDS: AMINO ACIDS/PROTEIN HYDROLYS 30 ML LIQUID.PKT NGT SCH (08:52)
[2021-08-05] MEDS: PANTOPRAZOLE SODIUM 40 MG VIAL IVPUSH SCH (09:04)
[2021-08-05] MEDS: levETIRAcetam 500 MG/5 ML INJECTION VIAL IVPB SCH (09:04)
[2021-08-05] MEDS: POLYETHYLENE GLYCOL (HEALTHYLAX) 3350 17 GM PACKET PO SCH ×2 (09:04→22:02)
[2021-08-05] MEDS: APIXABAN 5 MG TABLET PO SCH ×2 (09:05→22:02)
[2021-08-05] MEDS: ACETAMINOPHEN 650 MG/20.3 ML ORAL SOLUTION (CUPS) GT PRN (09:07)
[2021-08-05 09:44] LABS: BASO % 0.6 % (0-2.0); EOS % 2.3 % (0-4.5); HEMATOCRIT 22.2 % (35.4-49); HEMOGLOBIN 7.4 GM/dL (11.7-16.9); LYMPH % 13.6 % (8-40); MCHC 33.1 g/dl (32.0-35.9); MEAN CELL VOLUME 99.5 fl (80-96); MEAN PLT VOLUME 8.1 fl (7.5-11.1); MONO % 9.5 % (3.8-10.2); PLATELET COUNT 161 10^3/uL (134-434); RBC 2.24 M/mm3 (4.00-5.60); RDW 14.1 % (11.9-15.9); WHITE BLOOD COUNT 4.1 K/mm3 (4.0-10.0)
[2021-08-05 10:08] LABS: BLOOD UREA NITROGEN 39.4 mg/dL (7-18)
[2021-08-05 10:09] LABS: ALBUMIN 1.4 g/dl (3.4-5.0)
[2021-08-05 10:12] LABS: CREATININE 1.9 mg/dL (0.55-1.3)
[2021-08-05 10:13] LABS: BILIRUBIN,TOTAL 0.8 mg/dL (0.2-1); TOT PROT 5.1 g/dl (6.4-8.2)
[2021-08-05] MEDS ORDERED: SODIUM PHOSPHATE/NA BIPHOS 133 ML ENEMA RC ONE (11:05)
[2021-08-05] MEDS ORDERED: DEXTROSE 5%-WATER - 1,000 ML IV SCH (13:30)
[2021-08-05] MEDS: levETIRAcetam 500 MG/5 ML ORAL SOLUTION (UNIT-DOSE CUPS) GT SCH (22:02)
[2021-08-05] MEDS: SENNOSIDES 8.8 MG/5 ML BULK BOTTLE GT SCH (22:02)
[2021-08-06] MEDS: INSULIN SLIDING SCALE (NOVOLOG) 1 VIAL SQ SCH ×4 (06:12→22:46)
[2021-08-06] MEDS: AMINO ACIDS/PROTEIN HYDROLYS 30 ML LIQUID.PKT NGT SCH (08:03)
[2021-08-06] MEDS ORDERED: PT OWN MED DRAWER 7, Y5N ONE ×2 (08:42→21:38)
[2021-08-06 09:07] LABS: HEMATOCRIT 23.8 % (35.4-49); MCHC 33.5 g/dl (32.0-35.9); MEAN CELL VOLUME 98.6 fl (80-96); MEAN PLT VOLUME 8.1 fl (7.5-11.1); PLATELET COUNT 166 10^3/uL (134-434); RBC 2.42 M/mm3 (4.00-5.60); RDW 14.4 % (11.9-15.9); WHITE BLOOD COUNT 5.3 K/mm3 (4.0-10.0)
[2021-08-06 09:41] LABS: ALBUMIN 1.6 g/dl (3.4-5.0); CALCIUM 9.7 mg/dL (8.5-10.1)
[2021-08-06 09:45] LABS: BILIRUBIN,TOTAL 0.4 mg/dL (0.2-1); CREATININE 1.8 mg/dL (0.55-1.3)
[2021-08-06 09:46] LABS: TOT PROT 5.5 g/dl (6.4-8.2)
[2021-08-06] MEDS: APIXABAN 5 MG TABLET PO SCH ×2 (10:04→21:40)
[2021-08-06] MEDS: FAMOTIDINE 40 MG/5 ML ORAL SUSPENSION PEG SCH (10:04)
[2021-08-06] MEDS: POLYETHYLENE GLYCOL (HEALTHYLAX) 3350 17 GM PACKET PO SCH ×2 (10:04→21:40)
[2021-08-06] MEDS: levETIRAcetam 500 MG/5 ML ORAL SOLUTION (UNIT-DOSE CUPS) GT SCH ×2 (10:06→21:40)
[2021-08-06] MEDS ORDERED: IRON SUCROSE INJECTION 200 MG in SODIUM CHLORIDE 90 ML IVPB ONE (11:00)
[2021-08-06] MEDS: DEXTROSE 5%-WATER - 1,000 ML IV SCH (14:52)
[2021-08-06] MEDS: ACETAMINOPHEN 650 MG/20.3 ML ORAL SOLUTION (CUPS) GT PRN (14:52)
[2021-08-06] MEDS: SENNOSIDES 8.8 MG/5 ML BULK BOTTLE GT SCH (21:40)
[2021-08-07] MEDS: INSULIN SLIDING SCALE (NOVOLOG) 1 VIAL SQ SCH ×4 (06:15→23:06)
[2021-08-07] MEDS: AMINO ACIDS/PROTEIN HYDROLYS 30 ML LIQUID.PKT NGT SCH (07:49)
[2021-08-07] MEDS: APIXABAN 5 MG TABLET PO SCH ×2 (09:49→23:06)
[2021-08-07] MEDS ORDERED: PT OWN MED DRAWER 7, Y5N ONE (09:49)
[2021-08-07] MEDS: FAMOTIDINE 40 MG/5 ML ORAL SUSPENSION PEG SCH (09:49)
[2021-08-07] MEDS: POLYETHYLENE GLYCOL (HEALTHYLAX) 3350 17 GM PACKET PO SCH ×2 (09:49→23:06)
[2021-08-07] MEDS: levETIRAcetam 500 MG/5 ML ORAL SOLUTION (UNIT-DOSE CUPS) GT SCH ×2 (09:49→23:06)
[2021-08-07 10:51] LABS: BLOOD UREA NITROGEN 38.9 mg/dL (7-18); CALCIUM 9.5 mg/dL (8.5-10.1)
[2021-08-07 10:52] LABS: ALBUMIN 1.6 g/dl (3.4-5.0)
[2021-08-07 10:55] LABS: CREATININE 1.8 mg/dL (0.55-1.3)
[2021-08-07 10:56] LABS: BILIRUBIN,TOTAL 0.4 mg/dL (0.2-1); TOT PROT 5.5 g/dl (6.4-8.2)
[2021-08-07] MEDS: METOPROLOL TARTRATE 25 MG TABLET (FP) GT SCH ×2 (11:22→23:06)
[2021-08-07] MEDS: DEXTROSE 5%-WATER - 1,000 ML IV SCH (11:22)
[2021-08-07] MEDS: ACETAMINOPHEN 650 MG/20.3 ML ORAL SOLUTION (CUPS) GT PRN (15:13)
[2021-08-07] MEDS: SENNOSIDES 8.8 MG/5 ML BULK BOTTLE GT SCH (23:06)
[2021-08-08] MEDS: INSULIN SLIDING SCALE (NOVOLOG) 1 VIAL SQ SCH ×4 (06:05→22:00)
[2021-08-08] MEDS: ACETAMINOPHEN 650 MG/20.3 ML ORAL SOLUTION (CUPS) GT PRN (06:54)
[2021-08-08] MEDS ORDERED: VANCOMYCIN 1 GM in D5W (PRE-DOCKED) 1,000 MG/250 ML IVPB ONE (09:45)
[2021-08-08] MEDS: AMINO ACIDS/PROTEIN HYDROLYS 30 ML LIQUID.PKT NGT SCH (10:34)
[2021-08-08] MEDS: APIXABAN 5 MG TABLET PO SCH ×2 (10:34→21:55)
[2021-08-08] MEDS: POLYETHYLENE GLYCOL (HEALTHYLAX) 3350 17 GM PACKET PO SCH ×2 (10:35→23:15)
[2021-08-08] MEDS: levETIRAcetam 500 MG/5 ML ORAL SOLUTION (UNIT-DOSE CUPS) GT SCH ×2 (10:35→21:55)
[2021-08-08] MEDS: METOPROLOL TARTRATE 25 MG TABLET (FP) GT SCH ×2 (10:35→21:55)
[2021-08-08] MEDS: FAMOTIDINE 40 MG/5 ML ORAL SUSPENSION PEG SCH (10:35)
[2021-08-08 12:08] LABS: BASO % 0.4 % (0-2.0); EOS % 3.3 % (0-4.5); HEMATOCRIT 24.8 % (35.4-49); LYMPH % 12.5 % (8-40); MCH 32.6 pg (25.7-33.7); MCHC 32.4 g/dl (32.0-35.9); MEAN CELL VOLUME 100.6 fl (80-96); MEAN PLT VOLUME 7.9 fl (7.5-11.1); MONO % 13.7 % (3.8-10.2); NEUT % 70.1 % (42.8-82.8); PLATELET COUNT 158 10^3/uL (134-434); RBC 2.47 M/mm3 (4.00-5.60); RDW 14.5 % (11.9-15.9); WHITE BLOOD COUNT 5.3 K/mm3 (4.0-10.0)
[2021-08-08 13:11] LABS: ALBUMIN 1.6 g/dl (3.4-5.0); CALCIUM 9.9 mg/dL (8.5-10.1)
[2021-08-08 13:12] LABS: BLOOD UREA NITROGEN 39.2 mg/dL (7-18)
[2021-08-08 13:15] LABS: CREATININE 1.9 mg/dL (0.55-1.3)
[2021-08-08 13:16] LABS: BILIRUBIN,TOTAL 0.4 mg/dL (0.2-1); TOT PROT 5.7 g/dl (6.4-8.2)
[2021-08-08] MEDS ORDERED: PIPERACILLIN/TAZOBACTAM 2.25 GM VIAL IVPB ONE ×2 (13:51→14:35)
[2021-08-08] MEDS ORDERED: DEXTROSE 5%-WATER - 50 ML IVPB ONE ×2 (13:51→14:35)
[2021-08-08] MEDS: PIPERACILLIN/TAZOB 2.25 GM 2.25 GM in DEXTROSE 5%-WATER - 50 ML IVPB SCH ×2 (14:43→17:04)
[2021-08-08] MEDS: SENNOSIDES 8.8 MG/5 ML BULK BOTTLE GT SCH (23:15)
[2021-08-09] MEDS ORDERED: PIPERACILLIN/TAZOBACTAM 2.25 GM VIAL IVPB ONE ×3 (03:02→16:44)
[2021-08-09] MEDS ORDERED: DEXTROSE 5%-WATER - 50 ML IVPB ONE ×3 (03:03→16:44)
[2021-08-09] MEDS: PIPERACILLIN/TAZOB 2.25 GM 2.25 GM in DEXTROSE 5%-WATER - 50 ML IVPB SCH ×3 (03:03→17:10)
[2021-08-09] MEDS: ACETAMINOPHEN 650 MG/20.3 ML ORAL SOLUTION (CUPS) GT PRN (04:55)
[2021-08-09] MEDS: INSULIN SLIDING SCALE (NOVOLOG) 1 VIAL SQ SCH ×4 (06:30→21:02)
[2021-08-09] MEDS: APIXABAN 5 MG TABLET PO SCH ×2 (09:38→21:34)
[2021-08-09] MEDS: levETIRAcetam 500 MG/5 ML ORAL SOLUTION (UNIT-DOSE CUPS) GT SCH ×2 (09:38→21:34)
[2021-08-09] MEDS: METOPROLOL TARTRATE 25 MG TABLET (FP) GT SCH ×2 (09:38→21:34)
[2021-08-09] MEDS: POLYETHYLENE GLYCOL (HEALTHYLAX) 3350 17 GM PACKET PO SCH ×3 (09:38→21:35)
[2021-08-09] MEDS: FAMOTIDINE 40 MG/5 ML ORAL SUSPENSION PEG SCH (09:45)
[2021-08-09] MEDS: AMINO ACIDS/PROTEIN HYDROLYS 30 ML LIQUID.PKT NGT SCH (09:50)
[2021-08-09] MEDS: SCOPOLAMINE HYDROBROMIDE 1 PATCH PATCH.TD72 TD SCH (21:34)
[2021-08-09] MEDS: SENNOSIDES 8.8 MG/5 ML BULK BOTTLE GT SCH (21:34)
[2021-08-09] MEDS: LACTOBACILLUS ACIDOPHILUS 1 TABLET GT SCH (21:34)
[2021-08-10] MEDS ORDERED: DEXTROSE 5%-WATER - 50 ML IVPB ONE ×3 (01:18→17:24)
[2021-08-10] MEDS ORDERED: PIPERACILLIN/TAZOBACTAM 2.25 GM VIAL IVPB ONE ×3 (01:18→17:24)
[2021-08-10] MEDS: PIPERACILLIN/TAZOB 2.25 GM 2.25 GM in DEXTROSE 5%-WATER - 50 ML IVPB SCH ×3 (01:31→17:53)
[2021-08-10] MEDS: INSULIN SLIDING SCALE (NOVOLOG) 1 VIAL SQ SCH ×4 (06:21→21:39)
[2021-08-10] MEDS ORDERED: PT OWN MED DRAWER 7, Y5N ONE ×2 (11:01→21:33)
[2021-08-10] MEDS: levETIRAcetam 500 MG/5 ML ORAL SOLUTION (UNIT-DOSE CUPS) GT SCH ×2 (11:07→21:35)
[2021-08-10] MEDS: FAMOTIDINE 40 MG/5 ML ORAL SUSPENSION PEG SCH (11:07)
[2021-08-10] MEDS: AMINO ACIDS/PROTEIN HYDROLYS 30 ML LIQUID.PKT NGT SCH (11:07)
[2021-08-10] MEDS: LACTOBACILLUS ACIDOPHILUS 1 TABLET GT SCH (11:08)
[2021-08-10] MEDS: METOPROLOL TARTRATE 25 MG TABLET (FP) GT SCH ×2 (11:08→21:34)
[2021-08-10] MEDS: APIXABAN 5 MG TABLET PO SCH ×2 (11:08→21:34)
[2021-08-10] MEDS: SENNOSIDES 8.8 MG/5 ML BULK BOTTLE GT SCH (21:34)
[2021-08-11] MEDS ORDERED: PIPERACILLIN/TAZOBACTAM 2.25 GM VIAL IVPB ONE ×3 (00:49→17:45)
[2021-08-11] MEDS ORDERED: DEXTROSE 5%-WATER - 50 ML IVPB ONE ×3 (00:49→17:45)
[2021-08-11] MEDS: PIPERACILLIN/TAZOB 2.25 GM 2.25 GM in DEXTROSE 5%-WATER - 50 ML IVPB SCH ×3 (01:14→18:06)
[2021-08-11] MEDS: INSULIN SLIDING SCALE (NOVOLOG) 1 VIAL SQ SCH ×4 (06:00→21:23)
[2021-08-11] MEDS: AMINO ACIDS/PROTEIN HYDROLYS 30 ML LIQUID.PKT NGT SCH (09:41)
[2021-08-11] MEDS: APIXABAN 5 MG TABLET PO SCH ×2 (10:53→21:21)
[2021-08-11] MEDS: levETIRAcetam 500 MG/5 ML ORAL SOLUTION (UNIT-DOSE CUPS) GT SCH ×2 (10:53→21:21)
[2021-08-11] MEDS: METOPROLOL TARTRATE 25 MG TABLET (FP) GT SCH ×2 (10:53→21:21)
[2021-08-11] MEDS: LACTOBACILLUS ACIDOPHILUS 1 TABLET GT SCH (10:53)
[2021-08-11] MEDS: FAMOTIDINE 40 MG/5 ML ORAL SUSPENSION PEG SCH (10:54)
[2021-08-11 11:53] LABS: ALBUMIN 1.6 g/dl (3.4-5.0)
[2021-08-11 11:55] LABS: CALCIUM 9.5 mg/dL (8.5-10.1)
[2021-08-11 11:56] LABS: CREATININE 2.2 mg/dL (0.55-1.3)
[2021-08-11 11:58] LABS: BILIRUBIN,TOTAL 0.4 mg/dL (0.2-1); TOT PROT 6.2 g/dl (6.4-8.2)
[2021-08-11] MEDS: ACETAMINOPHEN 650 MG/20.3 ML ORAL SOLUTION (CUPS) GT PRN (12:32)
[2021-08-11] MEDS ORDERED: SODIUM ZIRCONIUM CYCLOSILICATE (LOKELMA) 5 GM PACKET PO ONE (12:52)
[2021-08-11] MEDS ORDERED: VANCOMYCIN/WATER BAGS 1,250 MG/250 ML BAG IVPB ONE (13:00)
[2021-08-11] MEDS ORDERED: SODIUM CHLORIDE 1,000 ML IV SCH (13:00)
[2021-08-11] MEDS ORDERED: PT OWN MED DRAWER 7, Y5N ONE (21:22)
[2021-08-11] MEDS: SENNOSIDES 8.8 MG/5 ML BULK BOTTLE GT SCH (21:23)
[2021-08-12] MEDS ORDERED: DEXTROSE 5%-WATER - 50 ML IVPB ONE ×3 (02:22→16:38)
[2021-08-12] MEDS ORDERED: PIPERACILLIN/TAZOBACTAM 2.25 GM VIAL IVPB ONE ×3 (02:22→16:37)
[2021-08-12] MEDS: PIPERACILLIN/TAZOB 2.25 GM 2.25 GM in DEXTROSE 5%-WATER - 50 ML IVPB SCH ×3 (02:23→17:11)
[2021-08-12] MEDS: INSULIN SLIDING SCALE (NOVOLOG) 1 VIAL SQ SCH ×4 (05:59→21:46)
[2021-08-12] MEDS: ACETAMINOPHEN 650 MG/20.3 ML ORAL SOLUTION (CUPS) GT PRN ×2 (06:13→16:42)
[2021-08-12] MEDS ORDERED: PT OWN MED DRAWER 7, Y5N ONE ×3 (08:16→16:38)
[2021-08-12] MEDS: AMINO ACIDS/PROTEIN HYDROLYS 30 ML LIQUID.PKT NGT SCH (08:26)
[2021-08-12] MEDS: FAMOTIDINE 40 MG/5 ML ORAL SUSPENSION PEG SCH (10:45)
[2021-08-12] MEDS: APIXABAN 5 MG TABLET PO SCH ×2 (10:45→21:45)
[2021-08-12] MEDS: levETIRAcetam 500 MG/5 ML ORAL SOLUTION (UNIT-DOSE CUPS) GT SCH ×2 (10:45→21:45)
[2021-08-12] MEDS: LACTOBACILLUS ACIDOPHILUS 1 TABLET GT SCH (10:45)
[2021-08-12] MEDS: METOPROLOL TARTRATE 25 MG TABLET (FP) GT SCH ×2 (10:45→21:45)
[2021-08-12] MEDS ORDERED: DEXTROSE 5%-WATER - 1,000 ML IV SCH (18:00)
[2021-08-12] MEDS: SCOPOLAMINE HYDROBROMIDE 1 PATCH PATCH.TD72 TD SCH (18:06)
[2021-08-12] MEDS: SENNOSIDES 8.8 MG/5 ML BULK BOTTLE GT SCH (21:46)
[2021-08-12] MEDS: DEXTROSE 5%-WATER - 1,000 ML IV SCH (23:00)
[2021-08-13] MEDS ORDERED: DEXTROSE 5%-WATER - 50 ML IVPB ONE ×3 (01:44→17:04)
[2021-08-13] MEDS ORDERED: PIPERACILLIN/TAZOBACTAM 2.25 GM VIAL IVPB ONE ×3 (01:44→17:04)
[2021-08-13] MEDS: PIPERACILLIN/TAZOB 2.25 GM 2.25 GM in DEXTROSE 5%-WATER - 50 ML IVPB SCH ×3 (01:45→17:16)
[2021-08-13] MEDS: INSULIN SLIDING SCALE (NOVOLOG) 1 VIAL SQ SCH ×4 (06:01→22:02)
[2021-08-13] MEDS: LACTOBACILLUS ACIDOPHILUS 1 TABLET GT SCH (10:15)
[2021-08-13] MEDS: levETIRAcetam 500 MG/5 ML ORAL SOLUTION (UNIT-DOSE CUPS) GT SCH ×2 (10:15→22:02)
[2021-08-13] MEDS: METOPROLOL TARTRATE 25 MG TABLET (FP) GT SCH ×2 (10:15→22:01)
[2021-08-13] MEDS: APIXABAN 5 MG TABLET PO SCH ×2 (10:15→22:01)
[2021-08-13] MEDS: AMINO ACIDS/PROTEIN HYDROLYS 30 ML LIQUID.PKT NGT SCH (10:15)
[2021-08-13] MEDS: FAMOTIDINE 40 MG/5 ML ORAL SUSPENSION PEG SCH (10:16)
[2021-08-13 10:24] LABS: HEMOGLOBIN 7.4 GM/dL (11.7-16.9); MCH 33.1 pg (25.7-33.7); MCHC 33.6 g/dl (32.0-35.9); MEAN CELL VOLUME 98.4 fl (80-96); MEAN PLT VOLUME 6.9 fl (7.5-11.1); PLATELET COUNT 213 10^3/uL (134-434); RBC 2.24 M/mm3 (4.00-5.60); RDW 13.9 % (11.9-15.9); WHITE BLOOD COUNT 5.1 K/mm3 (4.0-10.0)
[2021-08-13 10:46] LABS: CALCIUM 9.4 mg/dL (8.5-10.1)
[2021-08-13 10:47] LABS: ALBUMIN 1.6 g/dl (3.4-5.0); BLOOD UREA NITROGEN 45.8 mg/dL (7-18)
[2021-08-13 10:49] LABS: CREATININE 2.2 mg/dL (0.55-1.3)
[2021-08-13 10:50] LABS: TOT PROT 6.2 g/dl (6.4-8.2)
[2021-08-13] MEDS: DEXTROSE 5%-WATER - 1,000 ML IV SCH (21:59)
[2021-08-13] MEDS ORDERED: PT OWN MED DRAWER 7, Y5N ONE (22:01)
[2021-08-13] MEDS: SENNOSIDES 8.8 MG/5 ML BULK BOTTLE GT SCH (22:02)
[2021-08-14] MEDS ORDERED: PIPERACILLIN/TAZOBACTAM 2.25 GM VIAL IVPB ONE ×2 (00:51→09:56)
[2021-08-14] MEDS ORDERED: DEXTROSE 5%-WATER - 50 ML IVPB ONE ×2 (00:51→09:56)
[2021-08-14] MEDS: PIPERACILLIN/TAZOB 2.25 GM 2.25 GM in DEXTROSE 5%-WATER - 50 ML IVPB SCH ×2 (01:36→10:01)
[2021-08-14] MEDS: INSULIN SLIDING SCALE (NOVOLOG) 1 VIAL SQ SCH ×4 (06:06→22:00)
[2021-08-14 08:55] LABS: BASO % 0.7 % (0-2.0); EOS % 1.6 % (0-4.5); HEMATOCRIT 20.7 % (35.4-49); LYMPH % 13.6 % (8-40); MCH 33.1 pg (25.7-33.7); MCHC 33.3 g/dl (32.0-35.9); MEAN CELL VOLUME 99.5 fl (80-96); MEAN PLT VOLUME 7.8 fl (7.5-11.1); MONO % 18.6 % (3.8-10.2); NEUT % 65.5 % (42.8-82.8); PLATELET COUNT 245 10^3/uL (134-434); RBC 2.08 M/mm3 (4.00-5.60); RDW 13.8 % (11.9-15.9); WHITE BLOOD COUNT 4.6 K/mm3 (4.0-10.0)
[2021-08-14 09:17] LABS: HEMOGLOBIN 6.9 GM/dL (11.7-16.9)
[2021-08-14 09:19] LABS: CALCIUM 9.3 mg/dL (8.5-10.1)
[2021-08-14 09:20] LABS: ALBUMIN 1.5 g/dl (3.4-5.0)
[2021-08-14 09:24] LABS: BILIRUBIN,TOTAL 0.6 mg/dL (0.2-1); CREATININE 2.3 mg/dL (0.55-1.3); TOT PROT 5.8 g/dl (6.4-8.2)
[2021-08-14] MEDS ORDERED: PT OWN MED DRAWER 7, Y5N ONE ×2 (09:55→21:24)
[2021-08-14] MEDS: LACTOBACILLUS ACIDOPHILUS 1 TABLET GT SCH (09:59)
[2021-08-14] MEDS: ACETAMINOPHEN 650 MG/20.3 ML ORAL SOLUTION (CUPS) GT PRN (10:00)
[2021-08-14] MEDS: APIXABAN 5 MG TABLET PO SCH ×2 (10:00→21:31)
[2021-08-14] MEDS: levETIRAcetam 500 MG/5 ML ORAL SOLUTION (UNIT-DOSE CUPS) GT SCH ×2 (10:01→21:31)
[2021-08-14] MEDS: AMINO ACIDS/PROTEIN HYDROLYS 30 ML LIQUID.PKT NGT SCH (10:01)
[2021-08-14] MEDS: METOPROLOL TARTRATE 25 MG TABLET (FP) GT SCH ×2 (10:01→21:31)
[2021-08-14] MEDS: FAMOTIDINE 40 MG/5 ML ORAL SUSPENSION PEG SCH (10:02)
[2021-08-14] MEDS: SENNOSIDES 8.8 MG/5 ML BULK BOTTLE GT SCH (21:31)
[2021-08-15] MEDS: INSULIN SLIDING SCALE (NOVOLOG) 1 VIAL SQ SCH ×4 (06:09→22:01)
[2021-08-15] MEDS: AMINO ACIDS/PROTEIN HYDROLYS 30 ML LIQUID.PKT NGT SCH (08:51)
[2021-08-15 10:02] LABS: HEMATOCRIT 24.3 % (35.4-49); HEMOGLOBIN 8.4 GM/dL (11.7-16.9); MCH 33.7 pg (25.7-33.7); MCHC 34.7 g/dl (32.0-35.9); MEAN PLT VOLUME 7.5 fl (7.5-11.1); PLATELET COUNT 294 10^3/uL (134-434); RDW 14.9 % (11.9-15.9); WHITE BLOOD COUNT 4.5 K/mm3 (4.0-10.0)
[2021-08-15 10:13] LABS: CALCIUM 9.4 mg/dL (8.5-10.1)
[2021-08-15 10:14] LABS: ALBUMIN 1.6 g/dl (3.4-5.0); BLOOD UREA NITROGEN 43.9 mg/dL (7-18)
[2021-08-15 10:17] LABS: CREATININE 2.2 mg/dL (0.55-1.3)
[2021-08-15 10:18] LABS: BILIRUBIN,TOTAL 0.4 mg/dL (0.2-1); TOT PROT 6.3 g/dl (6.4-8.2)
[2021-08-15] MEDS: METOPROLOL TARTRATE 25 MG TABLET (FP) GT SCH ×2 (11:09→21:52)
[2021-08-15] MEDS: APIXABAN 5 MG TABLET PO SCH ×2 (11:09→21:52)
[2021-08-15] MEDS: LACTOBACILLUS ACIDOPHILUS 1 TABLET GT SCH (11:09)
[2021-08-15] MEDS: levETIRAcetam 500 MG/5 ML ORAL SOLUTION (UNIT-DOSE CUPS) GT SCH ×2 (11:09→21:51)
[2021-08-15] MEDS ORDERED: PT OWN MED DRAWER 7, Y5N ONE ×3 (11:22→22:12)
[2021-08-15] MEDS: FAMOTIDINE 40 MG/5 ML ORAL SUSPENSION PEG SCH (11:24)
[2021-08-15] MEDS: SCOPOLAMINE HYDROBROMIDE 1 PATCH PATCH.TD72 TD SCH (19:40)
[2021-08-15] MEDS: SENNOSIDES 8.8 MG/5 ML BULK BOTTLE GT SCH (21:52)
[2021-08-15] MEDS: ACETAMINOPHEN 650 MG/20.3 ML ORAL SOLUTION (CUPS) GT PRN (22:45)
[2021-08-16] MEDS: INSULIN SLIDING SCALE (NOVOLOG) 1 VIAL SQ SCH ×4 (06:20→23:13)
[2021-08-16] MEDS: AMINO ACIDS/PROTEIN HYDROLYS 30 ML LIQUID.PKT NGT SCH (08:27)
[2021-08-16] MEDS: levETIRAcetam 500 MG/5 ML ORAL SOLUTION (UNIT-DOSE CUPS) GT SCH ×2 (10:23→23:13)
[2021-08-16] MEDS: ACETAMINOPHEN 650 MG/20.3 ML ORAL SOLUTION (CUPS) GT PRN (10:23)
[2021-08-16] MEDS: LACTOBACILLUS ACIDOPHILUS 1 TABLET GT SCH (10:23)
[2021-08-16] MEDS: FAMOTIDINE 40 MG/5 ML ORAL SUSPENSION PEG SCH (10:24)
[2021-08-16] MEDS: METOPROLOL TARTRATE 25 MG TABLET (FP) GT SCH ×2 (10:24→23:13)
[2021-08-16] MEDS: APIXABAN 5 MG TABLET PO SCH ×2 (10:24→23:13)
[2021-08-16] MEDS ORDERED: PT OWN MED DRAWER 7, Y5N ONE (23:10)
[2021-08-16] MEDS: SENNOSIDES 8.8 MG/5 ML BULK BOTTLE GT SCH (23:13)
[2021-08-17] MEDS: ACETAMINOPHEN 650 MG/20.3 ML ORAL SOLUTION (CUPS) GT PRN ×2 (03:05→11:25)
[2021-08-17] MEDS: INSULIN SLIDING SCALE (NOVOLOG) 1 VIAL SQ SCH ×4 (06:25→22:05)
[2021-08-17 09:41] LABS: HEMATOCRIT 25.2 % (35.4-49); HEMOGLOBIN 8.4 GM/dL (11.7-16.9); MCH 32.9 pg (25.7-33.7); MCHC 33.5 g/dl (32.0-35.9); MEAN CELL VOLUME 98.2 fl (80-96); MEAN PLT VOLUME 7.2 fl (7.5-11.1); PLATELET COUNT 354 10^3/uL (134-434); RBC 2.56 M/mm3 (4.00-5.60); RDW 14.3 % (11.9-15.9); WHITE BLOOD COUNT 7.1 K/mm3 (4.0-10.0)
[2021-08-17 10:17] LABS: BLOOD UREA NITROGEN 41.9 mg/dL (7-18); CALCIUM 9.4 mg/dL (8.5-10.1)
[2021-08-17 10:21] LABS: CREATININE 1.9 mg/dL (0.55-1.3)
[2021-08-17] MEDS: AMINO ACIDS/PROTEIN HYDROLYS 30 ML LIQUID.PKT NGT SCH (10:30)
[2021-08-17] MEDS ORDERED: PT OWN MED DRAWER 7, Y5N ONE ×3 (11:15→22:19)
[2021-08-17] MEDS: METOPROLOL TARTRATE 25 MG TABLET (FP) GT SCH ×2 (11:27→21:58)
[2021-08-17] MEDS: LACTOBACILLUS ACIDOPHILUS 1 TABLET GT SCH (11:27)
[2021-08-17] MEDS: APIXABAN 5 MG TABLET PO SCH ×2 (11:27→21:58)
[2021-08-17] MEDS: FAMOTIDINE 40 MG/5 ML ORAL SUSPENSION PEG SCH (11:27)
[2021-08-17] MEDS: levETIRAcetam 500 MG/5 ML ORAL SOLUTION (UNIT-DOSE CUPS) GT SCH ×2 (11:28→21:58)
[2021-08-17] MEDS ORDERED: DEXTROSE 5%-WATER - 50 ML IVPB ONE ×2 (15:48→19:45)
[2021-08-17] MEDS ORDERED: PIPERACILLIN/TAZOBACTAM 2.25 GM VIAL IVPB ONE ×2 (15:48→19:45)
[2021-08-17] MEDS: PIPERACILLIN/TAZOB 2.25 GM 2.25 GM in DEXTROSE 5%-WATER - 50 ML IVPB SCH ×2 (16:12→21:13)
[2021-08-17] MEDS: SENNOSIDES 8.8 MG/5 ML BULK BOTTLE GT SCH (21:58)
[2021-08-18] MEDS ORDERED: DEXTROSE 5%-WATER - 50 ML IVPB ONE ×4 (02:22→15:33)
[2021-08-18] MEDS ORDERED: PIPERACILLIN/TAZOBACTAM 2.25 GM VIAL IVPB ONE ×4 (02:22→15:33)
[2021-08-18] MEDS: PIPERACILLIN/TAZOB 2.25 GM 2.25 GM in DEXTROSE 5%-WATER - 50 ML IVPB SCH ×3 (02:51→15:54)
[2021-08-18] MEDS: ACETAMINOPHEN 650 MG/20.3 ML ORAL SOLUTION (CUPS) GT PRN ×2 (03:14→12:13)
[2021-08-18] MEDS: INSULIN SLIDING SCALE (NOVOLOG) 1 VIAL SQ SCH ×3 (06:08→17:21)
[2021-08-18] MEDS: AMINO ACIDS/PROTEIN HYDROLYS 30 ML LIQUID.PKT NGT SCH (08:56)
[2021-08-18] MEDS: APIXABAN 5 MG TABLET PO SCH (09:00)
[2021-08-18] MEDS: LACTOBACILLUS ACIDOPHILUS 1 TABLET GT SCH (09:00)
[2021-08-18] MEDS: METOPROLOL TARTRATE 25 MG TABLET (FP) GT SCH (09:00)
[2021-08-18] MEDS: levETIRAcetam 500 MG/5 ML ORAL SOLUTION (UNIT-DOSE CUPS) GT SCH (09:00)
[2021-08-18] MEDS ORDERED: PT OWN MED DRAWER 7, Y5N ONE ×3 (09:02→17:16)
[2021-08-18] MEDS: FAMOTIDINE 40 MG/5 ML ORAL SUSPENSION PEG SCH (09:03)
[2021-08-18] MEDS: SCOPOLAMINE HYDROBROMIDE 1 PATCH PATCH.TD72 TD SCH (18:27)
[2021-08-19] MEDS ORDERED: PT OWN MED DRAWER 7, Y5N ONE ×3 (00:07→08:28)
[2021-08-19] MEDS ORDERED: DEXTROSE 5%-WATER - 50 ML IVPB ONE ×5 (00:07→21:36)
[2021-08-19] MEDS ORDERED: PIPERACILLIN/TAZOBACTAM 2.25 GM VIAL IVPB ONE ×5 (00:07→21:36)
[2021-08-19] MEDS: levETIRAcetam 500 MG/5 ML ORAL SOLUTION (UNIT-DOSE CUPS) GT SCH ×3 (00:18→21:40)
[2021-08-19] MEDS: SENNOSIDES 8.8 MG/5 ML BULK BOTTLE GT SCH ×2 (00:18→21:41)
[2021-08-19] MEDS: ACETAMINOPHEN 650 MG/20.3 ML ORAL SOLUTION (CUPS) GT PRN ×2 (00:19→15:22)
[2021-08-19] MEDS: APIXABAN 5 MG TABLET PO SCH ×3 (00:19→21:40)
[2021-08-19] MEDS: METOPROLOL TARTRATE 25 MG TABLET (FP) GT SCH ×3 (00:19→21:39)
[2021-08-19] MEDS: INSULIN SLIDING SCALE (NOVOLOG) 1 VIAL SQ SCH ×4 (00:19→21:42)
[2021-08-19] MEDS: PIPERACILLIN/TAZOB 2.25 GM 2.25 GM in DEXTROSE 5%-WATER - 50 ML IVPB SCH ×5 (00:20→21:40)
[2021-08-19] MEDS ORDERED: INSULIN (LEVEMIR) 100 UNITS/ML UNITS SQ ONE (06:35)
[2021-08-19] MEDS: AMINO ACIDS/PROTEIN HYDROLYS 30 ML LIQUID.PKT NGT SCH (08:41)
[2021-08-19] MEDS: FAMOTIDINE 40 MG/5 ML ORAL SUSPENSION PEG SCH (10:14)
[2021-08-19] MEDS: LACTOBACILLUS ACIDOPHILUS 1 TABLET GT SCH (10:20)
[2021-08-20] MEDS ORDERED: PIPERACILLIN/TAZOBACTAM 2.25 GM VIAL IVPB ONE ×4 (01:52→21:22)
[2021-08-20] MEDS ORDERED: DEXTROSE 5%-WATER - 50 ML IVPB ONE ×4 (01:52→21:22)
[2021-08-20] MEDS: PIPERACILLIN/TAZOB 2.25 GM 2.25 GM in DEXTROSE 5%-WATER - 50 ML IVPB SCH ×4 (03:30→21:40)
[2021-08-20] MEDS: INSULIN SLIDING SCALE (NOVOLOG) 1 VIAL SQ SCH ×4 (06:25→21:19)
[2021-08-20 09:21] LABS: HEMATOCRIT 24.1 % (35.4-49); HEMOGLOBIN 7.9 GM/dL (11.7-16.9); MCH 32.4 pg (25.7-33.7); MCHC 32.8 g/dl (32.0-35.9); MEAN CELL VOLUME 98.8 fl (80-96); PLATELET COUNT 364 10^3/uL (134-434); RBC 2.44 M/mm3 (4.00-5.60); RDW 14.4 % (11.9-15.9); WHITE BLOOD COUNT 8.4 K/mm3 (4.0-10.0)
[2021-08-20] MEDS ORDERED: PT OWN MED DRAWER 7, Y5N ONE ×2 (09:22→21:22)
[2021-08-20] MEDS: levETIRAcetam 500 MG/5 ML ORAL SOLUTION (UNIT-DOSE CUPS) GT SCH ×2 (09:48→21:40)
[2021-08-20] MEDS: AMINO ACIDS/PROTEIN HYDROLYS 30 ML LIQUID.PKT NGT SCH (09:48)
[2021-08-20] MEDS: METOPROLOL TARTRATE 25 MG TABLET (FP) GT SCH ×2 (09:48→21:41)
[2021-08-20] MEDS: APIXABAN 5 MG TABLET PO SCH (09:49)
[2021-08-20] MEDS: LACTOBACILLUS ACIDOPHILUS 1 TABLET GT SCH (09:49)
[2021-08-20] MEDS: FAMOTIDINE 40 MG/5 ML ORAL SUSPENSION PEG SCH (09:49)
[2021-08-20 11:42] LABS: BLOOD UREA NITROGEN 44.3 mg/dL (7-18); CREATININE 1.9 mg/dL (0.55-1.3)
[2021-08-20] MEDS: ACETAMINOPHEN 650 MG/20.3 ML ORAL SOLUTION (CUPS) GT PRN (14:20)
[2021-08-20 14:29] LABS: CALCIUM 9.3 mg/dL (8.5-10.1)
[2021-08-20] MEDS: SENNOSIDES 8.8 MG/5 ML BULK BOTTLE GT SCH (21:41)
[2021-08-20] MEDS: APIXABAN 2.5 MG TABLET PO SCH (21:41)
[2021-08-21] MEDS ORDERED: PIPERACILLIN/TAZOBACTAM 2.25 GM VIAL IVPB ONE ×4 (01:47→22:17)
[2021-08-21] MEDS ORDERED: DEXTROSE 5%-WATER - 50 ML IVPB ONE ×4 (01:47→22:18)
[2021-08-21] MEDS: PIPERACILLIN/TAZOB 2.25 GM 2.25 GM in DEXTROSE 5%-WATER - 50 ML IVPB SCH ×4 (02:55→22:24)
[2021-08-21] MEDS: INSULIN SLIDING SCALE (NOVOLOG) 1 VIAL SQ SCH ×5 (06:13→22:27)
[2021-08-21] MEDS ORDERED: PT OWN MED DRAWER 7, Y5N ONE ×3 (09:10→22:17)
[2021-08-21] MEDS: AMINO ACIDS/PROTEIN HYDROLYS 30 ML LIQUID.PKT NGT SCH (09:23)
[2021-08-21] MEDS: FAMOTIDINE 40 MG/5 ML ORAL SUSPENSION PEG SCH (09:24)
[2021-08-21] MEDS: METOPROLOL TARTRATE 25 MG TABLET (FP) GT SCH ×2 (09:24→22:27)
[2021-08-21] MEDS: levETIRAcetam 500 MG/5 ML ORAL SOLUTION (UNIT-DOSE CUPS) GT SCH ×2 (09:24→22:27)
[2021-08-21] MEDS: LACTOBACILLUS ACIDOPHILUS 1 TABLET GT SCH (09:24)
[2021-08-21] MEDS: APIXABAN 2.5 MG TABLET PO SCH (09:24)
[2021-08-21] MEDS: ACETAMINOPHEN 650 MG/20.3 ML ORAL SOLUTION (CUPS) GT PRN ×2 (09:28→23:39)
[2021-08-21 09:44] LABS: HEMATOCRIT 25.2 % (35.4-49); HEMOGLOBIN 8.4 GM/dL (11.7-16.9); MCH 32.9 pg (25.7-33.7); MCHC 33.4 g/dl (32.0-35.9); MEAN CELL VOLUME 98.6 fl (80-96); PLATELET COUNT 380 10^3/uL (134-434); RBC 2.55 M/mm3 (4.00-5.60); RDW 14.5 % (11.9-15.9); WHITE BLOOD COUNT 7.3 K/mm3 (4.0-10.0)
[2021-08-21] MEDS: SCOPOLAMINE HYDROBROMIDE 1 PATCH PATCH.TD72 TD SCH (18:07)
[2021-08-21] MEDS: SENNOSIDES 8.8 MG/5 ML BULK BOTTLE GT SCH (22:27)
[2021-08-21] MEDS: APIXABAN 2.5 MG TABLET GT SCH (22:27)
[2021-08-22] MEDS: PIPERACILLIN/TAZOB 2.25 GM 2.25 GM in DEXTROSE 5%-WATER - 50 ML IVPB SCH ×4 (02:24→22:39)
[2021-08-22] MEDS: INSULIN SLIDING SCALE (NOVOLOG) 1 VIAL SQ SCH ×2 (06:18→12:57)
[2021-08-22] MEDS ORDERED: PT OWN MED DRAWER 7, Y5N ONE ×2 (09:42→22:36)
[2021-08-22] MEDS: APIXABAN 2.5 MG TABLET GT SCH ×2 (09:46→22:38)
[2021-08-22] MEDS: METOPROLOL TARTRATE 25 MG TABLET (FP) GT SCH ×2 (09:46→22:38)
[2021-08-22] MEDS: LACTOBACILLUS ACIDOPHILUS 1 TABLET GT SCH (09:46)
[2021-08-22] MEDS: FAMOTIDINE 40 MG/5 ML ORAL SUSPENSION PEG SCH (09:46)
[2021-08-22] MEDS: AMINO ACIDS/PROTEIN HYDROLYS 30 ML LIQUID.PKT NGT SCH (09:46)
[2021-08-22] MEDS: levETIRAcetam 500 MG/5 ML ORAL SOLUTION (UNIT-DOSE CUPS) GT SCH ×2 (09:46→22:37)
[2021-08-22] MEDS: ACETAMINOPHEN 650 MG/20.3 ML ORAL SOLUTION (CUPS) GT PRN ×2 (09:52→17:50)
[2021-08-22 12:52] LABS: BLOOD UREA NITROGEN 46.4 mg/dL (7-18); CALCIUM 9.6 mg/dL (8.5-10.1)
[2021-08-22] MEDS ORDERED: DEXTROSE 5%-WATER - 50 ML IVPB ONE ×2 (15:16→22:36)
[2021-08-22] MEDS ORDERED: PIPERACILLIN/TAZOBACTAM 2.25 GM VIAL IVPB ONE ×2 (15:16→22:36)
[2021-08-22] MEDS: SENNOSIDES 8.8 MG/5 ML BULK BOTTLE GT SCH (22:39)
[2021-08-23] MEDS ORDERED: PIPERACILLIN/TAZOBACTAM 2.25 GM VIAL IVPB ONE ×4 (02:08→20:45)
[2021-08-23] MEDS ORDERED: DEXTROSE 5%-WATER - 50 ML IVPB ONE ×4 (02:08→20:45)
[2021-08-23] MEDS: PIPERACILLIN/TAZOB 2.25 GM 2.25 GM in DEXTROSE 5%-WATER - 50 ML IVPB SCH ×4 (02:24→20:50)
[2021-08-23] MEDS: ACETAMINOPHEN 650 MG/20.3 ML ORAL SOLUTION (CUPS) GT PRN ×2 (04:32→21:42)
[2021-08-23] MEDS: INSULIN SLIDING SCALE (NOVOLOG) 1 VIAL SQ SCH (06:25)
[2021-08-23] MEDS ORDERED: PT OWN MED DRAWER 7, Y5N ONE (11:33)
[2021-08-23] MEDS: APIXABAN 2.5 MG TABLET GT SCH ×2 (11:49→21:41)
[2021-08-23] MEDS: AMINO ACIDS/PROTEIN HYDROLYS 30 ML LIQUID.PKT NGT SCH (11:49)
[2021-08-23] MEDS: levETIRAcetam 500 MG/5 ML ORAL SOLUTION (UNIT-DOSE CUPS) GT SCH ×2 (11:49→21:42)
[2021-08-23] MEDS: METOPROLOL TARTRATE 25 MG TABLET (FP) GT SCH ×2 (11:49→21:41)
[2021-08-23] MEDS: LACTOBACILLUS ACIDOPHILUS 1 TABLET GT SCH (11:49)
[2021-08-23] MEDS: FAMOTIDINE 40 MG/5 ML ORAL SUSPENSION PEG SCH (11:52)
[2021-08-23] MEDS: SENNOSIDES 8.8 MG/5 ML BULK BOTTLE GT SCH (21:42)
[2021-08-24] MEDS ORDERED: PIPERACILLIN/TAZOBACTAM 2.25 GM VIAL IVPB ONE ×4 (02:24→20:49)
[2021-08-24] MEDS ORDERED: DEXTROSE 5%-WATER - 50 ML IVPB ONE ×4 (02:24→20:49)
[2021-08-24] MEDS: PIPERACILLIN/TAZOB 2.25 GM 2.25 GM in DEXTROSE 5%-WATER - 50 ML IVPB SCH ×4 (02:29→21:06)
[2021-08-24] MEDS: INSULIN SLIDING SCALE (NOVOLOG) 1 VIAL SQ SCH (06:34)
[2021-08-24] MEDS: ACETAMINOPHEN 650 MG/20.3 ML ORAL SOLUTION (CUPS) GT PRN ×2 (06:35→15:33)
[2021-08-24] MEDS ORDERED: PT OWN MED DRAWER 7, Y5N ONE ×3 (11:43→20:49)
[2021-08-24] MEDS: AMINO ACIDS/PROTEIN HYDROLYS 30 ML LIQUID.PKT NGT SCH (11:53)
[2021-08-24] MEDS: FAMOTIDINE 40 MG/5 ML ORAL SUSPENSION PEG SCH (11:53)
[2021-08-24] MEDS: METOPROLOL TARTRATE 25 MG TABLET (FP) GT SCH ×2 (11:53→21:06)
[2021-08-24] MEDS: LACTOBACILLUS ACIDOPHILUS 1 TABLET GT SCH (11:53)
[2021-08-24] MEDS: APIXABAN 2.5 MG TABLET GT SCH ×2 (11:53→21:06)
[2021-08-24] MEDS: levETIRAcetam 500 MG/5 ML ORAL SOLUTION (UNIT-DOSE CUPS) GT SCH ×2 (11:53→21:06)
[2021-08-24 13:15] LABS: BASO % 0.2 % (0-2.0); EOS % 0.3 % (0-4.5); HEMATOCRIT 29.7 % (35.4-49); HEMOGLOBIN 9.7 GM/dL (11.7-16.9); LYMPH % 5.9 % (8-40); MCHC 32.7 g/dl (32.0-35.9); MEAN CELL VOLUME 97.8 fl (80-96); MEAN PLT VOLUME 7.1 fl (7.5-11.1); MONO % 9.8 % (3.8-10.2); NEUT % 83.8 % (42.8-82.8); PLATELET COUNT 373 10^3/uL (134-434); RBC 3.04 M/mm3 (4.00-5.60); RDW 14.7 % (11.9-15.9); WHITE BLOOD COUNT 18.2 K/mm3 (4.0-10.0)
[2021-08-24 13:31] LABS: CALCIUM 9.8 mg/dL (8.5-10.1)
[2021-08-24 13:32] LABS: ALBUMIN 1.6 g/dl (3.4-5.0); BLOOD UREA NITROGEN 49.8 mg/dL (7-18)
[2021-08-24 13:35] LABS: CREATININE 2.2 mg/dL (0.55-1.3)
[2021-08-24 13:37] LABS: BILIRUBIN,TOTAL 0.5 mg/dL (0.2-1); TOT PROT 7.1 g/dl (6.4-8.2)
[2021-08-24] MEDS: SCOPOLAMINE HYDROBROMIDE 1 PATCH PATCH.TD72 TD SCH (19:02)
[2021-08-24] MEDS: SENNOSIDES 8.8 MG/5 ML BULK BOTTLE GT SCH (21:06)
[2021-08-25] MEDS ORDERED: PIPERACILLIN/TAZOBACTAM 2.25 GM VIAL IVPB ONE ×2 (01:41→09:49)
[2021-08-25] MEDS ORDERED: DEXTROSE 5%-WATER - 50 ML IVPB ONE ×2 (01:42→09:49)
[2021-08-25] MEDS: PIPERACILLIN/TAZOB 2.25 GM 2.25 GM in DEXTROSE 5%-WATER - 50 ML IVPB SCH ×2 (02:23→10:24)
[2021-08-25] MEDS: INSULIN SLIDING SCALE (NOVOLOG) 1 VIAL SQ SCH (08:14)
[2021-08-25] MEDS: AMINO ACIDS/PROTEIN HYDROLYS 30 ML LIQUID.PKT NGT SCH (10:26)
[2021-08-25] MEDS: levETIRAcetam 500 MG/5 ML ORAL SOLUTION (UNIT-DOSE CUPS) GT SCH ×2 (10:26→22:27)
[2021-08-25] MEDS: LACTOBACILLUS ACIDOPHILUS 1 TABLET GT SCH (10:26)
[2021-08-25] MEDS: METOPROLOL TARTRATE 25 MG TABLET (FP) GT SCH ×2 (10:26→22:26)
[2021-08-25] MEDS: FAMOTIDINE 40 MG/5 ML ORAL SUSPENSION PEG SCH (10:27)
[2021-08-25] MEDS: APIXABAN 2.5 MG TABLET GT SCH ×2 (10:32→22:26)
[2021-08-25 13:03] LABS: CALCIUM 9.5 mg/dL (8.5-10.1)
[2021-08-25 13:04] LABS: BLOOD UREA NITROGEN 54.8 mg/dL (7-18)
[2021-08-25 13:07] LABS: CREATININE 2.2 mg/dL (0.55-1.3)
[2021-08-25] MEDS: SENNOSIDES 8.8 MG/5 ML BULK BOTTLE GT SCH (22:27)
[2021-08-26] MEDS: INSULIN SLIDING SCALE (NOVOLOG) 1 VIAL SQ SCH (06:20)
[2021-08-26] MEDS ORDERED: PT OWN MED DRAWER 7, Y5N ONE (08:47)
[2021-08-26] MEDS: AMINO ACIDS/PROTEIN HYDROLYS 30 ML LIQUID.PKT NGT SCH (08:56)
[2021-08-26] MEDS: levETIRAcetam 500 MG/5 ML ORAL SOLUTION (UNIT-DOSE CUPS) GT SCH (09:06)
[2021-08-26] MEDS: APIXABAN 2.5 MG TABLET GT SCH (09:07)
[2021-08-26] MEDS: FAMOTIDINE 40 MG/5 ML ORAL SUSPENSION PEG SCH (09:07)
[2021-08-26] MEDS: METOPROLOL TARTRATE 25 MG TABLET (FP) GT SCH (09:07)
[2021-08-26] MEDS: LACTOBACILLUS ACIDOPHILUS 1 TABLET GT SCH (09:08)
[2021-08-26 11:05] LABS: BASO % 0.6 % (0-2.0); EOS % 1.9 % (0-4.5); HEMOGLOBIN 8.3 GM/dL (11.7-16.9); LYMPH % 6.9 % (8-40); MCH 32.7 pg (25.7-33.7); MCHC 33.1 g/dl (32.0-35.9); MEAN CELL VOLUME 98.8 fl (80-96); MEAN PLT VOLUME 7.1 fl (7.5-11.1); MONO % 10.2 % (3.8-10.2); NEUT % 80.4 % (42.8-82.8); PLATELET COUNT 307 10^3/uL (134-434); RBC 2.53 M/mm3 (4.00-5.60); RDW 14.7 % (11.9-15.9); WHITE BLOOD COUNT 10.3 K/mm3 (4.0-10.0)
[2021-08-26 12:33] LABS: ALBUMIN 1.4 g/dl (3.4-5.0); CALCIUM 9.2 mg/dL (8.5-10.1)
[2021-08-26 12:34] LABS: BLOOD UREA NITROGEN 55.7 mg/dL (7-18)
[2021-08-26 12:38] LABS: BILIRUBIN,TOTAL 0.3 mg/dL (0.2-1); TOT PROT 6.3 g/dl (6.4-8.2)
[2021-08-26 13:41] VITALS: TEMP 99.7
[2021-08-26 19:09] VITALS: BP 146/91
[2021-08-26 20:10] VITALS: PULSE 99
== END 2021-08-26 20:33 | DRG 3 ==
LOC: JER 01:21 → JERBED 02:57 → JICU 06:15 → J5S 08-01 17:13
PROVIDERS: ADMIT Internal Medicine Pulmonary Disease; ATTEND Internal Medicine
PROC: 5A1955Z Respiratory Ventilation, Greater than 96 Consecutive Hours (ICD-10-PCS; 2021-07-19)
PROC: 0BH17EZ Insertion of Endotracheal Airway into Trachea, Via Natural or Artificial Opening (ICD-10-PCS; 2021-07-19)
PROC: 0BCL8ZZ Extirpation of Matter from Left Lung, Via Natural or Artificial Opening Endoscopic (ICD-10-PCS; 2021-07-29)
PROC: 0BC78ZZ Extirpation of Matter from Left Main Bronchus, Via Natural or Artificial Opening Endoscopic (ICD-10-PCS; 2021-07-30)
PROC: 0B113F4 Bypass Trachea to Cutaneous with Tracheostomy Device, Percutaneous Approach (ICD-10-PCS; principal; 2021-07-30 10:30)
PROC: 0DH63UZ Insertion of Feeding Device into Stomach, Percutaneous Approach (ICD-10-PCS; 2021-08-01)
PROC: BD12ZZZ Fluoroscopy of Stomach (ICD-10-PCS; 2021-08-01)
PROC: 30233N1 Transfusion of Nonautologous Red Blood Cells into Peripheral Vein, Percutaneous Approach (ICD-10-PCS; 2021-08-04)
DX: A41.9 Sepsis, unspecified organism (principal); J69.0 Pneumonitis due to inhalation of food and vomit; J96.01 Acute respiratory failure with hypoxia; R65.21 Severe sepsis with septic shock; I21.A1 Myocardial infarction type 2; G92.9 Unspecified toxic encephalopathy; R53.2 Functional quadriplegia; N17.9 Acute kidney failure, unspecified; N39.0 Urinary tract infection, site not specified; R64 Cachexia; E87.0 Hyperosmolality and hypernatremia; E87.2 Acidosis; J98.11 Atelectasis; G93.1 Anoxic brain damage, not elsewhere classified; J90 Pleural effusion, not elsewhere classified; I24.8 Other forms of acute ischemic heart disease; I48.92 Unspecified atrial flutter; E78.5 Hyperlipidemia, unspecified; K21.9 Gastro-esophageal reflux disease without esophagitis; I12.9 Hypertensive chronic kidney disease with stage 1 through stage 4 chronic kidney disease, or unspecified chronic kidney disease; F03.90 Unspecified dementia, unspecified severity, without behavioral disturbance, psychotic disturbance, mood disturbance, and anxiety; I25.10 Atherosclerotic heart disease of native coronary artery without angina pectoris; M10.9 Gout, unspecified; D72.829 Elevated white blood cell count, unspecified; R74.01 Elevation of levels of liver transaminase levels; E83.52 Hypercalcemia; E87.5 Hyperkalemia; I95.9 Hypotension, unspecified; E16.2 Hypoglycemia, unspecified; E11.22 Type 2 diabetes mellitus with diabetic chronic kidney disease; D69.6 Thrombocytopenia, unspecified; L89.90 Pressure ulcer of unspecified site, unspecified stage; E11.649 Type 2 diabetes mellitus with hypoglycemia without coma; G25.3 Myoclonus; E87.6 Hypokalemia; B96.1 Klebsiella pneumoniae [K. pneumoniae] as the cause of diseases classified elsewhere; N18.9 Chronic kidney disease, unspecified
CPT/HCPCS: 36415; 36430; 36511; 36600; 49440; 70450-TC; 71045-TC-FY; 74018-TC-FY; 74150-TC; 76700-TC; 80048; 80053; 81003; 82272; 82550; 82553; 82570; 82607; 82728; 82746; 82803; 82962; 83036; 83540; 83550; 83605; 83735; 83930; 83935; 84100; 84146; 84156; 84300; 84439; 84443; 84484; 85025; 85027; 85610; 85651; 85730; 86850; 86900; 86901; 86922; 87040; 87070; 87086; 87186; 87205; 87324; 87449; 93005; 93010; 93306-TC; 94002; 94640; 95816; 99285-25; C9803; J0131; J1100; J1644; J1756; J3490; P9038; P9058; U0003; U0005

== ENCOUNTER 2021-11-15 04:11 | Inpatient (IN) | payer OTHER ==
[2021-11-15] MEDS ORDERED: VANCOMYCIN 1 GM in D5W (PRE-DOCKED) 1,000 MG/250 ML IVPB ONE (06:57)
[2021-11-15] MEDS ORDERED: PIPERACILLIN/TAZOB 2.25 GM 2.25 GM in DEXTROSE 5%-WATER - 50 ML IVPB ONE (07:28)
[2021-11-15] MEDS ORDERED: PIPERACILLIN/TAZOB 4.5 GM 4.5 GM in DEXTROSE 5%-WATER 100 ML IVPB ONE (07:30)
[2021-11-15] MEDS ORDERED: SODIUM CHLORIDE 0.9% 500 ML INFUS.BAG IV ONE ×2 (07:38→08:52)
[2021-11-15] MEDS ORDERED: VANCOMYCIN 500 MG VIAL (RESTRICTED TO ID ONLY) ONE (07:45)
[2021-11-15] MEDS ORDERED: PIPERACILLIN/TAZOB 4.5 GM 4.5 GM/100 ML BAG IVPB ONE (07:45)
[2021-11-15 07:58] LABS: BASO % 0.4 % (0-2.0); HEMATOCRIT 24.5 % (35.4-49); HEMOGLOBIN 7.5 GM/dL (11.7-16.9); LYMPH % 9.5 % (8-40); MCH 30.9 pg (25.7-33.7); MCHC 30.6 g/dl (32.0-35.9); MEAN PLT VOLUME 8.5 fl (7.5-11.1); MONO % 11.6 % (3.8-10.2); NEUT % 77.5 % (42.8-82.8); PLATELET COUNT 372 10^3/uL (134-434); RBC 2.43 M/mm3 (4.00-5.60); RDW 17.6 % (11.9-15.9); WHITE BLOOD COUNT 11.8 K/mm3 (4.0-10.0)
[2021-11-15 08:19] LABS: CHLORIDE 108 mmol/L (98-107); SODIUM 145 mmol/L (136-145)
[2021-11-15 08:21] LABS: CALCIUM 12.2 mg/dL (8.5-10.1)
[2021-11-15 08:22] LABS: ALBUMIN 1.4 g/dl (3.4-5.0); CO2 29 mmol/L (21-32); GLUCOSE,RANDOM 106 mg/dL (74-106)
[2021-11-15 08:25] LABS: CREATININE 3.4 mg/dL (0.55-1.3); SGOT/AST 45 U/L (15-37)
[2021-11-15 08:26] LABS: BILIRUBIN,TOTAL 0.3 mg/dL (0.2-1); SGPT/ALT 51 U/L (13-61)
[2021-11-15 08:27] LABS: TOT PROT 7.3 g/dl (6.4-8.2)
[2021-11-15 08:28] LABS: ALK PHOS 144 U/L (45-117)
[2021-11-15 08:29] LABS: ANION GAP 8 MMOL/L (8-16); BLOOD UREA NITROGEN 147.5 mg/dL (7-18); LACTIC ACID 3.1 mmol/L (0.4-2.0)
[2021-11-15 12:27] LABS: CHLORIDE 112 mmol/L (98-107); SODIUM 146 mmol/L (136-145)
[2021-11-15 12:29] LABS: ANION GAP 6 MMOL/L (8-16); CO2 28 mmol/L (21-32); GLUCOSE,RANDOM 165 mg/dL (74-106)
[2021-11-15 12:32] LABS: CREATININE 3.2 mg/dL (0.55-1.3)
[2021-11-15 12:35] LABS: BLOOD UREA NITROGEN 152.4 mg/dL (7-18)
[2021-11-15] MEDS ORDERED: ACETAMINOPHEN 650 MG/20.3 ML ORAL SOLUTION (CUPS) PO PRN (12:38)
[2021-11-15] MEDS: ALBUTEROL SO4 2.5/IPRATROPIUM 0.5 INH SOL 3 ML VIAL.NEB. NEB SCH ×2 (18:03→20:30)
[2021-11-15] MEDS: DEXTROSE 5%-0.45% SALINE 1,000 ML IV SCH (18:03)
[2021-11-15] MEDS ORDERED: BACITRACIN 3.5 GM OPTHALMIC OINT TUBE OD SCH (22:00)
[2021-11-16] MEDS: levETIRAcetam 500 MG/5 ML ORAL SOLUTION (UNIT-DOSE CUPS) GT SCH ×3 (01:29→21:44)
[2021-11-16] MEDS: ARTIFICIAL TEARS (POLYVINYL ALCOHOL) OPTH DROPS OU SCH ×3 (01:49→21:44)
[2021-11-16] MEDS: ALBUTEROL SO4 2.5/IPRATROPIUM 0.5 INH SOL 3 ML VIAL.NEB. NEB SCH ×4 (08:30→19:45)
[2021-11-16 10:21] LABS: MCH 30.7 pg (25.7-33.7); MCHC 30.8 g/dl (32.0-35.9); MEAN CELL VOLUME 99.7 fl (80-96); MEAN PLT VOLUME 8.1 fl (7.5-11.1); PLATELET COUNT 315 10^3/uL (134-434); RBC 2.01 M/mm3 (4.00-5.60); RDW 17.2 % (11.9-15.9); WHITE BLOOD COUNT 13.8 K/mm3 (4.0-10.0)
[2021-11-16 10:36] LABS: CHLORIDE 112 mmol/L (98-107); SODIUM 146 mmol/L (136-145)
[2021-11-16 10:41] LABS: CALCIUM 11.7 mg/dL (8.5-10.1)
[2021-11-16 10:42] LABS: ALBUMIN 1.3 g/dl (3.4-5.0); ANION GAP 5 MMOL/L (8-16); CO2 30 mmol/L (21-32)
[2021-11-16 10:45] LABS: CREATININE 3.3 mg/dL (0.55-1.3); SGOT/AST 18 U/L (15-37); SGPT/ALT 35 U/L (13-61)
[2021-11-16 10:46] LABS: BILIRUBIN,TOTAL 0.5 mg/dL (0.2-1); TOT PROT 6.2 g/dl (6.4-8.2)
[2021-11-16 10:47] LABS: ALK PHOS 117 U/L (45-117)
[2021-11-16 10:53] LABS: BLOOD UREA NITROGEN 150.7 mg/dL (7-18); GLUCOSE,RANDOM 134 mg/dL (74-106)
[2021-11-16 11:15] LABS: HEMOGLOBIN 6.2 GM/dL (11.7-16.9)
[2021-11-16] MEDS: FERROUS SO4 300 MG/5 ML ORAL SOLN UNIT DOSE CUPS GT SCH (13:40)
[2021-11-16] MEDS: amLODIPine BESYLATE 5 MG TABLET (FP) GT SCH (13:40)
[2021-11-16] MEDS: METOPROLOL TARTRATE 25 MG TABLET (FP) PO SCH (13:40)
[2021-11-16] MEDS: FAMOTIDINE 40 MG/5 ML ORAL SUSPENSION PEG SCH (13:40)
[2021-11-16] MEDS: DEXTROSE 5%-0.45% SALINE 1,000 ML IV SCH (13:48)
[2021-11-16] MEDS: BACITRACIN 3.5 GM OPTHALMIC OINT TUBE OD SCH (13:50)
[2021-11-16 15:07] LABS: SARS-CoV-2 NAA Not Detected (Not Detected)
[2021-11-16 16:18] LABS: INR 1.66 (0.83-1.09); PROTHROMBIN TIME (PATIENT) 19.2 SEC (9.7-13.0)
[2021-11-16] MEDS ORDERED: PIPERACILLIN/TAZOBACTAM 2.25 GM VIAL IVPB ONE (17:03)
[2021-11-16] MEDS ORDERED: DEXTROSE 5%-WATER - 50 ML IVPB ONE (17:03)
[2021-11-16] MEDS: PIPERACILLIN/TAZOB 2.25 GM 2.25 GM in DEXTROSE 5%-WATER - 50 ML IVPB SCH (17:06)
[2021-11-17] MEDS ORDERED: DEXTROSE 5%-WATER - 50 ML IVPB ONE ×3 (02:04→17:59)
[2021-11-17] MEDS ORDERED: PIPERACILLIN/TAZOBACTAM 2.25 GM VIAL IVPB ONE ×3 (02:04→17:59)
[2021-11-17] MEDS: PIPERACILLIN/TAZOB 2.25 GM 2.25 GM in DEXTROSE 5%-WATER - 50 ML IVPB SCH ×3 (02:22→18:06)
[2021-11-17] MEDS: DEXTROSE 5%-0.45% SALINE 1,000 ML IV SCH (02:22)
[2021-11-17] MEDS: ALBUTEROL SO4 2.5/IPRATROPIUM 0.5 INH SOL 3 ML VIAL.NEB. NEB SCH ×4 (08:55→20:10)
[2021-11-17] MEDS: ARTIFICIAL TEARS (POLYVINYL ALCOHOL) OPTH DROPS OU SCH ×2 (09:48→22:11)
[2021-11-17] MEDS: FERROUS SO4 300 MG/5 ML ORAL SOLN UNIT DOSE CUPS GT SCH (09:48)
[2021-11-17] MEDS: METOPROLOL TARTRATE 25 MG TABLET (FP) PO SCH (09:48)
[2021-11-17] MEDS: amLODIPine BESYLATE 5 MG TABLET (FP) GT SCH (09:48)
[2021-11-17] MEDS: levETIRAcetam 500 MG/5 ML ORAL SOLUTION (UNIT-DOSE CUPS) GT SCH ×2 (09:48→22:10)
[2021-11-17] MEDS: FAMOTIDINE 40 MG/5 ML ORAL SUSPENSION PEG SCH (09:49)
[2021-11-17] MEDS ORDERED: PHENYLEPHRINE HCL 10 MG/1 ML SINGLE DOSE VIAL ONE (10:26)
[2021-11-17] MEDS ORDERED: ROCURONIUM BROMIDE 50 MG/5 ML SYRINGE ONE (10:26)
[2021-11-17] MEDS ORDERED: PROPOFOL 20 ML ONE ×2 (10:26)
[2021-11-17] MEDS ORDERED: DEXTROSE 5%-0.45% SALINE 1,000 ML IV SCH (10:41)
[2021-11-17] MEDS ORDERED: BUPIVACAINE HCL/PF 0.5% (5MG/ML) 10 ML VIAL ONE (11:21)
[2021-11-17] MEDS ORDERED: BUPIVACAINE HCL/PF 0.5% (5MG/ML) 10 ML VIAL IJ ONE (11:25)
[2021-11-17] MEDS ORDERED: SODIUM CHLORIDE 1,000 ML IV SCH ×2 (12:15→12:23)
[2021-11-17] MEDS ORDERED: ACETAMINOPHEN 650 MG/20.3 ML ORAL SOLUTION (CUPS) PO PRN (12:23)
[2021-11-17 13:46] LABS: HEMATOCRIT 29.4 % (35.4-49); HEMOGLOBIN 9.4 GM/dL (11.7-16.9); MCH 30.3 pg (25.7-33.7); MEAN CELL VOLUME 94.9 fl (80-96); MEAN PLT VOLUME 7.9 fl (7.5-11.1); PLATELET COUNT 312 10^3/uL (134-434); RDW 20.4 % (11.9-15.9); WHITE BLOOD COUNT 16.4 K/mm3 (4.0-10.0)
[2021-11-17 13:54] LABS: INR 1.47 (0.83-1.09)
[2021-11-17 14:09] LABS: CHLORIDE 112 mmol/L (98-107); SODIUM 147 mmol/L (136-145)
[2021-11-17 14:11] LABS: ALBUMIN 1.3 g/dl (3.4-5.0); ANION GAP 7 MMOL/L (8-16); CO2 28 mmol/L (21-32)
[2021-11-17 14:13] LABS: CALCIUM 10.8 mg/dL (8.5-10.1)
[2021-11-17 14:14] LABS: CREATININE 3.1 mg/dL (0.55-1.3); SGOT/AST 11 U/L (15-37)
[2021-11-17 14:16] LABS: BILIRUBIN,TOTAL 0.5 mg/dL (0.2-1); TOT PROT 6.2 g/dl (6.4-8.2)
[2021-11-17 14:17] LABS: ALK PHOS 115 U/L (45-117)
[2021-11-17 14:18] LABS: GLUCOSE,RANDOM 119 mg/dL (74-106); SGPT/ALT 24 U/L (13-61)
[2021-11-17] MEDS ORDERED: TRIPLE LUMEN FLUSH 4 ML ML IVPUSH PRN (14:32)
[2021-11-17] MEDS: SODIUM CHLORIDE 0.45% 1,000 ML IV SCH (18:06)
[2021-11-18] MEDS ORDERED: PIPERACILLIN/TAZOBACTAM 2.25 GM VIAL IVPB ONE ×3 (00:59→16:56)
[2021-11-18] MEDS ORDERED: DEXTROSE 5%-WATER - 50 ML IVPB ONE ×3 (00:59→16:57)
[2021-11-18] MEDS: PIPERACILLIN/TAZOB 2.25 GM 2.25 GM in DEXTROSE 5%-WATER - 50 ML IVPB SCH ×3 (01:51→17:04)
[2021-11-18] MEDS: SODIUM CHLORIDE 0.45% 1,000 ML IV SCH ×3 (04:16→21:35)
[2021-11-18] MEDS: ALBUTEROL SO4 2.5/IPRATROPIUM 0.5 INH SOL 3 ML VIAL.NEB. NEB SCH ×4 (09:11→20:10)
[2021-11-18] MEDS ORDERED: amLODIPine BESYLATE 5 MG TABLET (FP) GT SCH (10:00)
[2021-11-18] MEDS ORDERED: METOPROLOL TARTRATE 25 MG TABLET (FP) PO SCH (10:00)
[2021-11-18] MEDS: FAMOTIDINE 40 MG/5 ML ORAL SUSPENSION PEG SCH (11:00)
[2021-11-18] MEDS: levETIRAcetam 500 MG/5 ML ORAL SOLUTION (UNIT-DOSE CUPS) GT SCH ×2 (11:00→21:34)
[2021-11-18] MEDS: FERROUS SO4 300 MG/5 ML ORAL SOLN UNIT DOSE CUPS GT SCH (11:00)
[2021-11-18] MEDS: ARTIFICIAL TEARS (POLYVINYL ALCOHOL) OPTH DROPS OU SCH ×2 (11:07→21:35)
[2021-11-18 11:30] LABS: BASO % 0.2 % (0-2.0); CHLORIDE 114 mmol/L (98-107); EOS % 1.5 % (0-4.5); HEMATOCRIT 26.8 % (35.4-49); HEMOGLOBIN 8.3 GM/dL (11.7-16.9); MCH 29.3 pg (25.7-33.7); MCHC 30.8 g/dl (32.0-35.9); MEAN PLT VOLUME 8.1 fl (7.5-11.1); MONO % 5.3 % (3.8-10.2); PLATELET COUNT 301 10^3/uL (134-434); RBC 2.82 M/mm3 (4.00-5.60); RDW 19.3 % (11.9-15.9); SODIUM 147 mmol/L (136-145)
[2021-11-18 11:34] LABS: CALCIUM 10.5 mg/dL (8.5-10.1)
[2021-11-18 11:35] LABS: ALBUMIN 1.3 g/dl (3.4-5.0); ANION GAP 6 MMOL/L (8-16); CO2 27 mmol/L (21-32); GLUCOSE,RANDOM 78 mg/dL (74-106)
[2021-11-18 11:38] LABS: CREATININE 2.9 mg/dL (0.55-1.3); SGOT/AST 13 U/L (15-37); SGPT/ALT 21 U/L (13-61)
[2021-11-18 11:40] LABS: BILIRUBIN,TOTAL 0.8 mg/dL (0.2-1); TOT PROT 6.2 g/dl (6.4-8.2)
[2021-11-18 11:41] LABS: ALK PHOS 113 U/L (45-117)
[2021-11-18 11:43] LABS: BLOOD UREA NITROGEN 116.9 mg/dL (7-18)
[2021-11-18] MEDS ORDERED: SODIUM CHLORIDE 500 ML IV STA (16:26)
[2021-11-19] MEDS ORDERED: DEXTROSE 5%-WATER - 50 ML IVPB ONE ×3 (01:22→17:44)
[2021-11-19] MEDS ORDERED: PIPERACILLIN/TAZOBACTAM 2.25 GM VIAL IVPB ONE ×3 (01:22→17:44)
[2021-11-19] MEDS: PIPERACILLIN/TAZOB 2.25 GM 2.25 GM in DEXTROSE 5%-WATER - 50 ML IVPB SCH ×3 (01:58→17:57)
[2021-11-19] MEDS: SODIUM CHLORIDE 0.45% 1,000 ML IV SCH ×2 (08:05→17:54)
[2021-11-19] MEDS: ALBUTEROL SO4 2.5/IPRATROPIUM 0.5 INH SOL 3 ML VIAL.NEB. NEB SCH ×4 (09:25→19:27)
[2021-11-19] MEDS: FERROUS SO4 300 MG/5 ML ORAL SOLN UNIT DOSE CUPS GT SCH (10:03)
[2021-11-19] MEDS: levETIRAcetam 500 MG/5 ML ORAL SOLUTION (UNIT-DOSE CUPS) GT SCH (10:03)
[2021-11-19] MEDS: FAMOTIDINE 40 MG/5 ML ORAL SUSPENSION PEG SCH (10:11)
[2021-11-19] MEDS: ARTIFICIAL TEARS (POLYVINYL ALCOHOL) OPTH DROPS OU SCH (10:13)
[2021-11-19] MEDS: METOPROLOL TARTRATE 25 MG TABLET (FP) PO SCH (10:14)
[2021-11-19] MEDS: amLODIPine BESYLATE 5 MG TABLET (FP) GT SCH (10:15)
[2021-11-20] MEDS: levETIRAcetam 500 MG/5 ML ORAL SOLUTION (UNIT-DOSE CUPS) GT SCH ×3 (00:41→21:19)
[2021-11-20] MEDS: ARTIFICIAL TEARS (POLYVINYL ALCOHOL) OPTH DROPS OU SCH ×3 (00:42→21:18)
[2021-11-20] MEDS ORDERED: DEXTROSE 5%-WATER - 50 ML IVPB ONE ×3 (03:05→12:52)
[2021-11-20] MEDS ORDERED: PIPERACILLIN/TAZOBACTAM 2.25 GM VIAL IVPB ONE ×3 (03:05→12:52)
[2021-11-20] MEDS: PIPERACILLIN/TAZOB 2.25 GM 2.25 GM in DEXTROSE 5%-WATER - 50 ML IVPB SCH ×3 (03:07→17:23)
[2021-11-20] MEDS: ALBUTEROL SO4 2.5/IPRATROPIUM 0.5 INH SOL 3 ML VIAL.NEB. NEB SCH ×4 (07:20→20:22)
[2021-11-20] MEDS: FERROUS SO4 300 MG/5 ML ORAL SOLN UNIT DOSE CUPS GT SCH (09:40)
[2021-11-20] MEDS: METOPROLOL TARTRATE 25 MG TABLET (FP) PO SCH (09:42)
[2021-11-20] MEDS: FAMOTIDINE 40 MG/5 ML ORAL SUSPENSION PEG SCH (09:42)
[2021-11-20] MEDS: amLODIPine BESYLATE 5 MG TABLET (FP) GT SCH (09:42)
[2021-11-20 10:59] LABS: BASO % 0.3 % (0-2.0); HEMATOCRIT 25.9 % (35.4-49); HEMOGLOBIN 8.1 GM/dL (11.7-16.9); LYMPH % 4.5 % (8-40); MCH 29.9 pg (25.7-33.7); MCHC 31.4 g/dl (32.0-35.9); MEAN CELL VOLUME 95.2 fl (80-96); MEAN PLT VOLUME 7.6 fl (7.5-11.1); MONO % 5.7 % (3.8-10.2); NEUT % 88.5 % (42.8-82.8); PLATELET COUNT 294 10^3/uL (134-434); RBC 2.72 M/mm3 (4.00-5.60); RDW 18.9 % (11.9-15.9); WHITE BLOOD COUNT 14.9 K/mm3 (4.0-10.0)
[2021-11-20 11:25] LABS: ALBUMIN 1.3 g/dl (3.4-5.0); CALCIUM 10.3 mg/dL (8.5-10.1)
[2021-11-20 11:29] LABS: CREATININE 2.8 mg/dL (0.55-1.3)
[2021-11-20 11:31] LABS: TOT PROT 6.3 g/dl (6.4-8.2)
[2021-11-20 11:35] LABS: BLOOD UREA NITROGEN 89.2 mg/dL (7-18)
[2021-11-20] MEDS ORDERED: FUROSEMIDE 40 MG/4 ML INJECTABLE VIAL IVPUSH ONE (12:22)
[2021-11-20] MEDS: POTASSIUM CHLORIDE 10 MEQ in DEXTROSE 5%-WATER - 1,000 ML IV SCH (17:24)
[2021-11-21] MEDS ORDERED: PIPERACILLIN/TAZOBACTAM 2.25 GM VIAL IVPB ONE ×3 (00:41→16:55)
[2021-11-21] MEDS ORDERED: DEXTROSE 5%-WATER - 50 ML IVPB ONE ×3 (00:41→16:55)
[2021-11-21] MEDS: PIPERACILLIN/TAZOB 2.25 GM 2.25 GM in DEXTROSE 5%-WATER - 50 ML IVPB SCH ×3 (01:04→17:25)
[2021-11-21] MEDS: ALBUTEROL SO4 2.5/IPRATROPIUM 0.5 INH SOL 3 ML VIAL.NEB. NEB SCH ×4 (08:55→20:11)
[2021-11-21] MEDS: FERROUS SO4 300 MG/5 ML ORAL SOLN UNIT DOSE CUPS GT SCH (11:14)
[2021-11-21] MEDS: ARTIFICIAL TEARS (POLYVINYL ALCOHOL) OPTH DROPS OU SCH ×2 (11:15→21:34)
[2021-11-21] MEDS: METOPROLOL TARTRATE 25 MG TABLET (FP) PO SCH (11:15)
[2021-11-21] MEDS: levETIRAcetam 500 MG/5 ML ORAL SOLUTION (UNIT-DOSE CUPS) GT SCH ×2 (11:15→21:35)
[2021-11-21] MEDS: FAMOTIDINE 40 MG/5 ML ORAL SUSPENSION PEG SCH (11:16)
[2021-11-21] MEDS: POTASSIUM CHLORIDE 10 MEQ in DEXTROSE 5%-WATER - 1,000 ML IV SCH ×2 (11:16→21:37)
[2021-11-21] MEDS: amLODIPine BESYLATE 5 MG TABLET (FP) GT SCH (11:16)
[2021-11-21 12:36] LABS: BASO % 0.3 % (0-2.0); EOS % 1.8 % (0-4.5); HEMATOCRIT 24.5 % (35.4-49); HEMOGLOBIN 7.7 GM/dL (11.7-16.9); LYMPH % 6.3 % (8-40); MCH 30.4 pg (25.7-33.7); MCHC 31.5 g/dl (32.0-35.9); MEAN CELL VOLUME 96.4 fl (80-96); MEAN PLT VOLUME 7.6 fl (7.5-11.1); MONO % 6.3 % (3.8-10.2); NEUT % 85.3 % (42.8-82.8); PLATELET COUNT 225 10^3/uL (134-434); RBC 2.54 M/mm3 (4.00-5.60); WHITE BLOOD COUNT 12.3 K/mm3 (4.0-10.0)
[2021-11-21 12:56] LABS: ALBUMIN 1.2 g/dl (3.4-5.0); BLOOD UREA NITROGEN 78.8 mg/dL (7-18); CALCIUM 9.7 mg/dL (8.5-10.1)
[2021-11-21 13:00] LABS: BILIRUBIN,TOTAL 0.9 mg/dL (0.2-1); CREATININE 2.9 mg/dL (0.55-1.3)
[2021-11-21 13:02] LABS: TOT PROT 5.7 g/dl (6.4-8.2)
[2021-11-21] MEDS: KCL 10 MEQ IVPB 10 MEQ/100 ML INFUS.BAG IVPB SCH ×2 (15:00→17:25)
[2021-11-22] MEDS ORDERED: PIPERACILLIN/TAZOBACTAM 2.25 GM VIAL IVPB ONE ×3 (01:00→17:26)
[2021-11-22] MEDS ORDERED: DEXTROSE 5%-WATER - 50 ML IVPB ONE ×3 (01:01→17:26)
[2021-11-22] MEDS: PIPERACILLIN/TAZOB 2.25 GM 2.25 GM in DEXTROSE 5%-WATER - 50 ML IVPB SCH ×3 (01:06→17:45)
[2021-11-22] MEDS: POTASSIUM CHLORIDE 10 MEQ in DEXTROSE 5%-WATER - 1,000 ML IV SCH (06:12)
[2021-11-22] MEDS: ALBUTEROL SO4 2.5/IPRATROPIUM 0.5 INH SOL 3 ML VIAL.NEB. NEB SCH ×4 (08:00→20:28)
[2021-11-22 09:59] LABS: BASO % 0.3 % (0-2.0); EOS % 2.7 % (0-4.5); HEMATOCRIT 24.2 % (35.4-49); HEMOGLOBIN 7.7 GM/dL (11.7-16.9); LYMPH % 6.9 % (8-40); MCHC 31.7 g/dl (32.0-35.9); MEAN CELL VOLUME 94.7 fl (80-96); MEAN PLT VOLUME 7.6 fl (7.5-11.1); MONO % 7.1 % (3.8-10.2); PLATELET COUNT 212 10^3/uL (134-434); RBC 2.56 M/mm3 (4.00-5.60); RDW 18.7 % (11.9-15.9); WHITE BLOOD COUNT 12.4 K/mm3 (4.0-10.0)
[2021-11-22 10:20] LABS: BLOOD UREA NITROGEN 76.9 mg/dL (7-18)
[2021-11-22 10:21] LABS: ALBUMIN 1.2 g/dl (3.4-5.0); CALCIUM 10.1 mg/dL (8.5-10.1)
[2021-11-22 10:23] LABS: MAGNESIUM 2.2 mg/dL (1.8-2.4)
[2021-11-22 10:24] LABS: CREATININE 2.7 mg/dL (0.55-1.3)
[2021-11-22 10:25] LABS: BILIRUBIN,TOTAL 0.6 mg/dL (0.2-1); TOT PROT 5.8 g/dl (6.4-8.2)
[2021-11-22] MEDS: FERROUS SO4 300 MG/5 ML ORAL SOLN UNIT DOSE CUPS GT SCH (10:38)
[2021-11-22] MEDS: levETIRAcetam 500 MG/5 ML ORAL SOLUTION (UNIT-DOSE CUPS) GT SCH ×2 (10:38→21:36)
[2021-11-22] MEDS: FAMOTIDINE 40 MG/5 ML ORAL SUSPENSION PEG SCH (10:38)
[2021-11-22] MEDS: ARTIFICIAL TEARS (POLYVINYL ALCOHOL) OPTH DROPS OU SCH ×2 (10:39→21:37)
[2021-11-22] MEDS: amLODIPine BESYLATE 5 MG TABLET (FP) GT SCH (10:39)
[2021-11-22] MEDS: METOPROLOL TARTRATE 25 MG TABLET (FP) PO SCH (10:39)
[2021-11-23] MEDS ORDERED: DEXTROSE 5%-WATER - 50 ML IVPB ONE ×3 (00:40→16:39)
[2021-11-23] MEDS ORDERED: PIPERACILLIN/TAZOBACTAM 2.25 GM VIAL IVPB ONE ×3 (00:40→16:39)
[2021-11-23] MEDS: PIPERACILLIN/TAZOB 2.25 GM 2.25 GM in DEXTROSE 5%-WATER - 50 ML IVPB SCH ×3 (01:42→18:50)
[2021-11-23] MEDS: POTASSIUM CHLORIDE 10 MEQ in DEXTROSE 5%-WATER - 1,000 ML IV SCH (07:18)
[2021-11-23] MEDS: ALBUTEROL SO4 2.5/IPRATROPIUM 0.5 INH SOL 3 ML VIAL.NEB. NEB SCH ×4 (07:59→20:47)
[2021-11-23 09:04] LABS: BLOOD UREA NITROGEN 67.2 mg/dL (7-18); CALCIUM 9.9 mg/dL (8.5-10.1)
[2021-11-23 09:07] LABS: CREATININE 2.5 mg/dL (0.55-1.3)
[2021-11-23] MEDS: METOPROLOL TARTRATE 25 MG TABLET (FP) PO SCH (10:45)
[2021-11-23] MEDS: FERROUS SO4 300 MG/5 ML ORAL SOLN UNIT DOSE CUPS GT SCH (10:45)
[2021-11-23] MEDS: levETIRAcetam 500 MG/5 ML ORAL SOLUTION (UNIT-DOSE CUPS) GT SCH ×2 (10:46→21:41)
[2021-11-23] MEDS: ARTIFICIAL TEARS (POLYVINYL ALCOHOL) OPTH DROPS OU SCH ×2 (10:46→21:40)
[2021-11-23] MEDS: FAMOTIDINE 40 MG/5 ML ORAL SUSPENSION PEG SCH (10:46)
[2021-11-23] MEDS: amLODIPine BESYLATE 5 MG TABLET (FP) GT SCH (10:47)
[2021-11-23] MEDS ORDERED: POTASSIUM CHLORIDE ORAL LIQUID 20 MEQ/15 ML GT ONE (13:30)
[2021-11-24] MEDS ORDERED: DEXTROSE 5%-WATER - 50 ML IVPB ONE ×3 (00:32→17:10)
[2021-11-24] MEDS ORDERED: PIPERACILLIN/TAZOBACTAM 2.25 GM VIAL IVPB ONE ×3 (00:32→17:10)
[2021-11-24] MEDS: PIPERACILLIN/TAZOB 2.25 GM 2.25 GM in DEXTROSE 5%-WATER - 50 ML IVPB SCH ×3 (01:19→17:20)
[2021-11-24] MEDS: ALBUTEROL SO4 2.5/IPRATROPIUM 0.5 INH SOL 3 ML VIAL.NEB. NEB SCH ×4 (07:50→20:06)
[2021-11-24] MEDS: METOPROLOL TARTRATE 25 MG TABLET (FP) PO SCH (10:18)
[2021-11-24] MEDS: levETIRAcetam 500 MG/5 ML ORAL SOLUTION (UNIT-DOSE CUPS) GT SCH ×2 (10:18→22:17)
[2021-11-24] MEDS: FERROUS SO4 300 MG/5 ML ORAL SOLN UNIT DOSE CUPS GT SCH (10:18)
[2021-11-24] MEDS: ARTIFICIAL TEARS (POLYVINYL ALCOHOL) OPTH DROPS OU SCH ×2 (10:18→22:36)
[2021-11-24] MEDS: FAMOTIDINE 40 MG/5 ML ORAL SUSPENSION PEG SCH (10:19)
[2021-11-24 11:21] LABS: BASO % 0.3 % (0-2.0); EOS % 1.6 % (0-4.5); HEMATOCRIT 26.7 % (35.4-49); HEMOGLOBIN 8.3 GM/dL (11.7-16.9); MCH 29.5 pg (25.7-33.7); MCHC 31.1 g/dl (32.0-35.9); NEUT % 86.1 % (42.8-82.8); PLATELET COUNT 243 10^3/uL (134-434); RBC 2.82 M/mm3 (4.00-5.60); RDW 18.6 % (11.9-15.9); WHITE BLOOD COUNT 16.8 K/mm3 (4.0-10.0)
[2021-11-24 11:33] LABS: ALBUMIN 1.2 g/dl (3.4-5.0); BLOOD UREA NITROGEN 58.4 mg/dL (7-18); CREATININE 2.4 mg/dL (0.55-1.3); MAGNESIUM 2.2 mg/dL (1.8-2.4)
[2021-11-24 11:35] LABS: TOT PROT 6.2 g/dl (6.4-8.2)
[2021-11-24 11:38] LABS: BILIRUBIN,TOTAL 0.6 mg/dL (0.2-1)
[2021-11-24 16:28] VITALS: BMI 21.8
[2021-11-25] MEDS ORDERED: PIPERACILLIN/TAZOBACTAM 2.25 GM VIAL IVPB ONE ×3 (02:35→17:55)
[2021-11-25] MEDS ORDERED: DEXTROSE 5%-WATER - 50 ML IVPB ONE ×3 (02:36→17:55)
[2021-11-25] MEDS: PIPERACILLIN/TAZOB 2.25 GM 2.25 GM in DEXTROSE 5%-WATER - 50 ML IVPB SCH ×3 (02:37→18:06)
[2021-11-25] MEDS: ALBUTEROL SO4 2.5/IPRATROPIUM 0.5 INH SOL 3 ML VIAL.NEB. NEB SCH ×4 (08:25→19:52)
[2021-11-25 10:22] LABS: BASO % 0.4 % (0-2.0); EOS % 0.8 % (0-4.5); HEMATOCRIT 24.2 % (35.4-49); HEMOGLOBIN 7.5 GM/dL (11.7-16.9); LYMPH % 6.2 % (8-40); MCH 29.4 pg (25.7-33.7); MCHC 31.1 g/dl (32.0-35.9); MEAN CELL VOLUME 94.7 fl (80-96); MEAN PLT VOLUME 8.2 fl (7.5-11.1); MONO % 8.4 % (3.8-10.2); NEUT % 84.2 % (42.8-82.8); PLATELET COUNT 217 10^3/uL (134-434); RBC 2.55 M/mm3 (4.00-5.60); RDW 18.4 % (11.9-15.9); WHITE BLOOD COUNT 16.7 K/mm3 (4.0-10.0)
[2021-11-25] MEDS: ARTIFICIAL TEARS (POLYVINYL ALCOHOL) OPTH DROPS OU SCH ×2 (10:39→22:45)
[2021-11-25] MEDS: VITAMIN B COMP W-C 1 EA TABLET (NEPHRO-VITE) PO SCH (10:40)
[2021-11-25] MEDS: FERROUS SO4 300 MG/5 ML ORAL SOLN UNIT DOSE CUPS GT SCH (10:40)
[2021-11-25] MEDS: METOPROLOL TARTRATE 25 MG TABLET (FP) PO SCH (10:40)
[2021-11-25] MEDS: levETIRAcetam 500 MG/5 ML ORAL SOLUTION (UNIT-DOSE CUPS) GT SCH ×2 (10:40→22:45)
[2021-11-25] MEDS: ZINC SULFATE 220 MG CAPSULE (FP) GT SCH (10:40)
[2021-11-25] MEDS: FAMOTIDINE 40 MG/5 ML ORAL SUSPENSION PEG SCH (10:41)
[2021-11-25 10:48] LABS: ALBUMIN 1.1 g/dl (3.4-5.0); BLOOD UREA NITROGEN 59.2 mg/dL (7-18); CALCIUM 10.1 mg/dL (8.5-10.1)
[2021-11-25 10:52] LABS: CREATININE 2.3 mg/dL (0.55-1.3)
[2021-11-25 10:53] LABS: BILIRUBIN,TOTAL 0.6 mg/dL (0.2-1); TOT PROT 5.6 g/dl (6.4-8.2)
[2021-11-26] MEDS ORDERED: DEXTROSE 5%-WATER - 50 ML IVPB ONE ×3 (01:28→17:09)
[2021-11-26] MEDS ORDERED: PIPERACILLIN/TAZOBACTAM 2.25 GM VIAL IVPB ONE ×3 (01:28→17:09)
[2021-11-26] MEDS: PIPERACILLIN/TAZOB 2.25 GM 2.25 GM in DEXTROSE 5%-WATER - 50 ML IVPB SCH ×3 (03:18→18:34)
[2021-11-26] MEDS: levETIRAcetam 500 MG/5 ML ORAL SOLUTION (UNIT-DOSE CUPS) GT SCH ×3 (05:14→22:05)
[2021-11-26] MEDS: ALBUTEROL SO4 2.5/IPRATROPIUM 0.5 INH SOL 3 ML VIAL.NEB. NEB SCH ×4 (08:26→19:34)
[2021-11-26 10:05] LABS: BASO % 0.3 % (0-2.0); EOS % 1.8 % (0-4.5); HEMATOCRIT 22.7 % (35.4-49); HEMOGLOBIN 7.3 GM/dL (11.7-16.9); LYMPH % 7.9 % (8-40); MCH 30.4 pg (25.7-33.7); MCHC 32.1 g/dl (32.0-35.9); MEAN PLT VOLUME 7.6 fl (7.5-11.1); MONO % 10.4 % (3.8-10.2); NEUT % 79.6 % (42.8-82.8); PLATELET COUNT 195 10^3/uL (134-434); RBC 2.39 M/mm3 (4.00-5.60); RDW 18.6 % (11.9-15.9); WHITE BLOOD COUNT 12.7 K/mm3 (4.0-10.0)
[2021-11-26] MEDS: METOPROLOL TARTRATE 25 MG TABLET (FP) PO SCH (10:07)
[2021-11-26] MEDS: ZINC SULFATE 220 MG CAPSULE (FP) GT SCH (10:17)
[2021-11-26] MEDS: VITAMIN B COMP W-C 1 EA TABLET (NEPHRO-VITE) PO SCH (10:17)
[2021-11-26] MEDS: ARTIFICIAL TEARS (POLYVINYL ALCOHOL) OPTH DROPS OU SCH ×2 (10:18→22:05)
[2021-11-26] MEDS: FERROUS SO4 300 MG/5 ML ORAL SOLN UNIT DOSE CUPS GT SCH (10:18)
[2021-11-26] MEDS: FAMOTIDINE 40 MG/5 ML ORAL SUSPENSION PEG SCH (10:18)
[2021-11-26 11:17] LABS: CALCIUM 9.8 mg/dL (8.5-10.1)
[2021-11-26 11:18] LABS: ALBUMIN 1.2 g/dl (3.4-5.0); BLOOD UREA NITROGEN 54.6 mg/dL (7-18)
[2021-11-26 11:21] LABS: CREATININE 2.2 mg/dL (0.55-1.3)
[2021-11-26 11:23] LABS: BILIRUBIN,TOTAL 0.7 mg/dL (0.2-1); TOT PROT 5.8 g/dl (6.4-8.2)
[2021-11-26] MEDS ORDERED: FUROSEMIDE 40 MG/5 ML UNIT-DOSE CUP PO ONE (12:00)
[2021-11-27] MEDS: ALBUTEROL SO4 2.5/IPRATROPIUM 0.5 INH SOL 3 ML VIAL.NEB. NEB SCH ×4 (08:04→20:37)
[2021-11-27] MEDS: levETIRAcetam 500 MG/5 ML ORAL SOLUTION (UNIT-DOSE CUPS) GT SCH ×2 (11:25→21:06)
[2021-11-27] MEDS: FERROUS SO4 300 MG/5 ML ORAL SOLN UNIT DOSE CUPS GT SCH (11:25)
[2021-11-27] MEDS: VITAMIN B COMP W-C 1 EA TABLET (NEPHRO-VITE) PO SCH (11:25)
[2021-11-27] MEDS: ZINC SULFATE 220 MG CAPSULE (FP) GT SCH (11:25)
[2021-11-27] MEDS: METOPROLOL TARTRATE 25 MG TABLET (FP) PO SCH (11:28)
[2021-11-27] MEDS: ARTIFICIAL TEARS (POLYVINYL ALCOHOL) OPTH DROPS OU SCH ×2 (11:29→21:06)
[2021-11-27] MEDS: FAMOTIDINE 40 MG/5 ML ORAL SUSPENSION PEG SCH (11:29)
[2021-11-27] MEDS ORDERED: SCOPOLAMINE HYDROBROMIDE 1 PATCH PATCH.TD72 TD SCH (11:30)
[2021-11-28] MEDS: ALBUTEROL SO4 2.5/IPRATROPIUM 0.5 INH SOL 3 ML VIAL.NEB. NEB SCH ×2 (08:20→12:11)
[2021-11-28] MEDS: METOPROLOL TARTRATE 25 MG TABLET (FP) PO SCH (09:48)
[2021-11-28 10:08] LABS: MCH 30.8 pg (25.7-33.7); MCHC 32.2 g/dl (32.0-35.9); MEAN CELL VOLUME 95.9 fl (80-96); MEAN PLT VOLUME 7.8 fl (7.5-11.1); PLATELET COUNT 236 10^3/uL (134-434); RBC 2.61 M/mm3 (4.00-5.60); RDW 18.9 % (11.9-15.9)
[2021-11-28 10:23] LABS: CALCIUM 10.3 mg/dL (8.5-10.1)
[2021-11-28 10:24] LABS: BLOOD UREA NITROGEN 54.5 mg/dL (7-18)
[2021-11-28 10:26] LABS: CREATININE 2.1 mg/dL (0.55-1.3)
[2021-11-28 10:28] LABS: BILIRUBIN,TOTAL 0.4 mg/dL (0.2-1)
[2021-11-28] MEDS: levETIRAcetam 500 MG/5 ML ORAL SOLUTION (UNIT-DOSE CUPS) GT SCH (10:41)
[2021-11-28] MEDS: ZINC SULFATE 220 MG CAPSULE (FP) GT SCH (10:41)
[2021-11-28] MEDS: FAMOTIDINE 40 MG/5 ML ORAL SUSPENSION PEG SCH (10:41)
[2021-11-28] MEDS: VITAMIN B COMP W-C 1 EA TABLET (NEPHRO-VITE) PO SCH (10:41)
[2021-11-28] MEDS: FERROUS SO4 300 MG/5 ML ORAL SOLN UNIT DOSE CUPS GT SCH (10:41)
[2021-11-28] MEDS: ARTIFICIAL TEARS (POLYVINYL ALCOHOL) OPTH DROPS OU SCH (10:41)
[2021-11-28 10:47] LABS: ALBUMIN 1.4 g/dl (3.4-5.0)
[2021-11-28 12:08] LABS: SARS-CoV-2 NAA Not Detected (Not Detected)
[2021-11-28 15:22] VITALS: BP 128/74; PULSE 98; TEMP 99.4
== END 2021-11-28 14:05 | DRG 853 ==
LOC: JER 04:11 → JERBED 09:59 → J5S 21:40
PROVIDERS: ADMIT Family Medicine; ATTEND Family Medicine
PROC: 5A1955Z Respiratory Ventilation, Greater than 96 Consecutive Hours (ICD-10-PCS; 2021-11-15)
PROC: 30233N1 Transfusion of Nonautologous Red Blood Cells into Peripheral Vein, Percutaneous Approach (ICD-10-PCS; 2021-11-16)
PROC: 0KBT0ZZ Excision of Left Lower Leg Muscle, Open Approach (ICD-10-PCS; principal; 2021-11-17 10:00)
DX: A41.59 Other Gram-negative sepsis (principal); L89.224 Pressure ulcer of left hip, stage 4; R53.2 Functional quadriplegia; J69.0 Pneumonitis due to inhalation of food and vomit; J96.21 Acute and chronic respiratory failure with hypoxia; N17.9 Acute kidney failure, unspecified; I96 Gangrene, not elsewhere classified; G93.1 Anoxic brain damage, not elsewhere classified; N39.0 Urinary tract infection, site not specified; E87.2 Acidosis; E87.0 Hyperosmolality and hypernatremia; R64 Cachexia; L02.416 Cutaneous abscess of left lower limb; Z99.11 Dependence on respirator [ventilator] status; F03.90 Unspecified dementia, unspecified severity, without behavioral disturbance, psychotic disturbance, mood disturbance, and anxiety; I12.9 Hypertensive chronic kidney disease with stage 1 through stage 4 chronic kidney disease, or unspecified chronic kidney disease; E11.22 Type 2 diabetes mellitus with diabetic chronic kidney disease; D69.6 Thrombocytopenia, unspecified; N18.9 Chronic kidney disease, unspecified; E78.5 Hyperlipidemia, unspecified; K21.9 Gastro-esophageal reflux disease without esophagitis; I48.91 Unspecified atrial fibrillation; I25.10 Atherosclerotic heart disease of native coronary artery without angina pectoris; Z93.0 Tracheostomy status; B96.4 Proteus (mirabilis) (morganii) as the cause of diseases classified elsewhere; Z68.21 Body mass index [BMI] 21.0-21.9, adult; D64.9 Anemia, unspecified; E86.0 Dehydration; E83.52 Hypercalcemia
CPT/HCPCS: 36415; 36430; 71045-TC-FY; 72192-TC; 73700-TC-RT; 80048; 80053; 82272; 82310; 82728; 82962; 83540; 83550; 83605; 83735; 83880; 83970; 84484; 85025; 85027; 85610; 86850; 86900; 86901; 86922; 87040; 87070; 87076; 87186; 87205; 88304-TC; 93005; 93010; 93306-TC; 94002; 94640; 94760; 99285-25; C9803; P9058; U0003; U0005

== ENCOUNTER 2021-12-06 21:18 | Inpatient (IN) | payer OTHER ==
[2021-12-06 22:00] VITALS: BMI 22.6
[2021-12-07 00:09] LABS: BASO % 0.4 % (0-2.0); EOS % 0.9 % (0-4.5); HEMATOCRIT 26.1 % (35.4-49); HEMOGLOBIN 8.5 GM/dL (11.7-16.9); LYMPH % 8.3 % (8-40); MCH 31.2 pg (25.7-33.7); MCHC 32.5 g/dl (32.0-35.9); MEAN PLT VOLUME 6.8 fl (7.5-11.1); MONO % 11.6 % (3.8-10.2); NEUT % 78.8 % (42.8-82.8); PLATELET COUNT 411 10^3/uL (134-434); RBC 2.72 M/mm3 (4.00-5.60); RDW 18.4 % (11.9-15.9); WHITE BLOOD COUNT 8.5 K/mm3 (4.0-10.0)
[2021-12-07 00:21] LABS: INR 1.43 (0.83-1.09); PROTHROMBIN TIME (PATIENT) 16.5 SEC (9.7-13.0)
[2021-12-07 00:24] LABS: ACTIVATED PTT 38.1 SECONDS (25.2-36.5)
[2021-12-07 00:29] LABS: ALBUMIN 1.5 g/dl (3.4-5.0); CALCIUM 10.4 mg/dL (8.5-10.1)
[2021-12-07 00:30] LABS: BLOOD UREA NITROGEN 53.5 mg/dL (7-18)
[2021-12-07] MEDS ORDERED: DEXTROSE 50%-WATER - 25 GM/50 ML VIAL IVPUSH ONE ×3 (00:33→18:30)
[2021-12-07 00:34] LABS: BILIRUBIN,TOTAL 0.4 mg/dL (0.2-1); TOT PROT 7.7 g/dl (6.4-8.2)
[2021-12-07] MEDS ORDERED: DEXTROSE 50%-WATER 25 GM/50 ML DISP.SYRIN ONE ×4 (00:36→18:44)
[2021-12-07] MEDS: SODIUM CHLORIDE 1,000 ML IV SCH ×2 (01:08→16:53)
[2021-12-07] MEDS ORDERED: ALBUTEROL SO4 0.083% IH SOL 2.5 MG/3 ML VIAL.NEB. NEB PRN (01:17)
[2021-12-07] MEDS ORDERED: HEPARIN NA (PORCINE) 5,000 UNITS/ML 1ML VIAL IVPUSH PRN ×2 (03:21)
[2021-12-07 03:47] LABS: EPI CELLS 17 /uL (0-25.1); HYALINE CASTS 3 /uL (0-3.1); PH,URINE 6.5 (5.0-8.0); URINE APPEARANCE CLOUDY; URINE BACTERIA 2816 /uL (0-1359); URINE BILIRUBIN NEGATIVE (NEGATIVE); URINE COLOR YELLOW; URINE GLUCOSE (UA) NEGATIVE (NEGATIVE); URINE KETONE TRACE (NEGATIVE); URINE LEUK ESTERASE TRACE (NEGATIVE); URINE NITRITE NEGATIVE (NEGATIVE); URINE PROTEIN 2+ (NEGATIVE); URINE RBC 37 /uL (0-23.9); URINE UROBILINOGEN 0.2 mg/dL (0.2-1.0); URINE WBC 164 /uL (0-25.8)
[2021-12-07] MEDS ORDERED: METOPROLOL TARTRATE 5 MG/5 ML VIAL ONE ×2 (05:42→12:51)
[2021-12-07] MEDS: METOPROLOL TARTRATE 5 MG/5 ML VIAL IVPUSH SCH ×2 (05:55→12:56)
[2021-12-07] MEDS: HEPARIN SOD,PORK IN 0.45% NACL 25,000 UNITS/500 ML INFUS.BAG IVPB SCH (05:55)
[2021-12-07] MEDS ORDERED: DEXTROSE 50%-WATER 25 GM/50 ML DISP.SYRIN IVPUSH STA (06:55)
[2021-12-07] MEDS: INSULIN SLIDING SCALE (NOVOLOG) 1 VIAL SQ SCH ×3 (06:57→18:49)
[2021-12-07 07:26] LABS: HEMOGLOBIN 8.9 GM/dL (11.7-16.9); MCH 31.6 pg (25.7-33.7); MEAN CELL VOLUME 95.8 fl (80-96); MEAN PLT VOLUME 6.7 fl (7.5-11.1); PLATELET COUNT 365 10^3/uL (134-434); RBC 2.82 M/mm3 (4.00-5.60); RDW 18.5 % (11.9-15.9); WHITE BLOOD COUNT 7.3 K/mm3 (4.0-10.0)
[2021-12-07 07:47] LABS: CALCIUM 10.7 mg/dL (8.5-10.1)
[2021-12-07 07:48] LABS: ALBUMIN 1.3 g/dl (3.4-5.0)
[2021-12-07 07:51] LABS: CREATININE 1.9 mg/dL (0.55-1.3)
[2021-12-07 07:52] LABS: BILIRUBIN,TOTAL 0.5 mg/dL (0.2-1)
[2021-12-07] MEDS ORDERED: ALBUTEROL SO4 2.5/IPRATROPIUM 0.5 INH SOL 3 ML VIAL.NEB. NEB ONE (08:21)
[2021-12-07] MEDS: ALBUTEROL SO4 2.5/IPRATROPIUM 0.5 INH SOL 3 ML VIAL.NEB. NEB SCH ×3 (08:22→20:10)
[2021-12-07] MEDS ORDERED: levETIRAcetam 500 MG/5 ML INJECTION VIAL IVPB ONE (09:17)
[2021-12-07] MEDS: levETIRAcetam 500 MG/5 ML INJECTION VIAL IVPB SCH (09:25)
[2021-12-07] MEDS: DEXTROSE 5%-NORMAL SALINE 1,000 ML IV SCH (18:49)
[2021-12-08] MEDS: levETIRAcetam 500 MG/5 ML INJECTION VIAL IVPB SCH ×2 (00:44→09:55)
[2021-12-08] MEDS: METOPROLOL TARTRATE 5 MG/5 ML VIAL IVPB SCH ×3 (00:45→14:33)
[2021-12-08] MEDS: INSULIN SLIDING SCALE (NOVOLOG) 1 VIAL SQ SCH ×4 (00:48→17:25)
[2021-12-08] MEDS: METOPROLOL TARTRATE 5 MG/5 ML VIAL IVPUSH SCH (01:50)
[2021-12-08] MEDS: ALBUTEROL SO4 2.5/IPRATROPIUM 0.5 INH SOL 3 ML VIAL.NEB. NEB SCH ×4 (08:45→20:01)
[2021-12-08] MEDS: HEPARIN SOD,PORK IN 0.45% NACL 25,000 UNITS/500 ML INFUS.BAG IVPB SCH (09:55)
[2021-12-08] MEDS: DEXTROSE 5%-NORMAL SALINE 1,000 ML IV SCH (09:56)
[2021-12-08 13:05] LABS: BASO % 0.4 % (0-2.0); EOS % 1.3 % (0-4.5); HEMATOCRIT 24.5 % (35.4-49); LYMPH % 12.8 % (8-40); MCH 31.4 pg (25.7-33.7); MCHC 32.6 g/dl (32.0-35.9); MEAN CELL VOLUME 96.4 fl (80-96); MEAN PLT VOLUME 6.9 fl (7.5-11.1); MONO % 10.7 % (3.8-10.2); NEUT % 74.8 % (42.8-82.8); PLATELET COUNT 396 10^3/uL (134-434); RBC 2.55 M/mm3 (4.00-5.60); RDW 17.9 % (11.9-15.9); WHITE BLOOD COUNT 7.4 K/mm3 (4.0-10.0)
[2021-12-08 13:12] LABS: INR 1.42 (0.83-1.09); PROTHROMBIN TIME (PATIENT) 16.4 SEC (9.7-13.0)
[2021-12-08 13:15] LABS: ACTIVATED PTT 45.9 SECONDS (25.2-36.5)
[2021-12-08 13:29] LABS: CALCIUM 10.1 mg/dL (8.5-10.1)
[2021-12-08 13:30] LABS: ALBUMIN 1.5 g/dl (3.4-5.0); BLOOD UREA NITROGEN 40.4 mg/dL (7-18)
[2021-12-08 13:33] LABS: CREATININE 1.9 mg/dL (0.55-1.3)
[2021-12-08 13:34] LABS: BILIRUBIN,TOTAL 0.8 mg/dL (0.2-1); TOT PROT 7.2 g/dl (6.4-8.2)
[2021-12-08] MEDS: FAMOTIDINE 40 MG/5 ML ORAL SUSPENSION PEG SCH (17:18)
[2021-12-08] MEDS: AMINO ACIDS/PROTEIN HYDROLYS 30 ML LIQUID.PKT GT SCH (17:18)
[2021-12-08] MEDS: APIXABAN 2.5 MG TABLET PEG SCH (21:25)
[2021-12-08] MEDS: levETIRAcetam 500 MG TABLET (FP) PO SCH (21:25)
[2021-12-08] MEDS: METOPROLOL TARTRATE 25 MG TABLET (FP) PEG SCH (21:36)
[2021-12-09] MEDS: INSULIN SLIDING SCALE (NOVOLOG) 1 VIAL SQ SCH ×3 (07:51→12:21)
[2021-12-09] MEDS: ALBUTEROL SO4 2.5/IPRATROPIUM 0.5 INH SOL 3 ML VIAL.NEB. NEB SCH ×3 (07:54→15:11)
[2021-12-09] MEDS: AMINO ACIDS/PROTEIN HYDROLYS 30 ML LIQUID.PKT GT SCH ×2 (09:30→17:04)
[2021-12-09] MEDS ORDERED: COLLAGENASE CLOSTRIDIUM HIST. 30 GRAMS TUBE TP SCH (10:00)
[2021-12-09] MEDS ORDERED: BACITRACIN 15 GM TUBE TOPICAL OINTMENT TP SCH (10:00)
[2021-12-09] MEDS ORDERED: MULTIVIT-MINERALS ORAL LIQUID PO SCH (10:00)
[2021-12-09] MEDS ORDERED: ZINC SULFATE 220 MG CAPSULE (FP) GT SCH (10:00)
[2021-12-09] MEDS: levETIRAcetam 500 MG TABLET (FP) PO SCH (10:29)
[2021-12-09] MEDS: APIXABAN 2.5 MG TABLET PEG SCH (10:29)
[2021-12-09] MEDS: METOPROLOL TARTRATE 25 MG TABLET (FP) PEG SCH (10:29)
[2021-12-09] MEDS: FAMOTIDINE 40 MG/5 ML ORAL SUSPENSION PEG SCH (10:33)
[2021-12-09] MEDS ORDERED: ACETAMINOPHEN 650 MG/20.3 ML ORAL SOLUTION (CUPS) GT ONE (14:30)
[2021-12-09 17:56] VITALS: BP 137/65; PULSE 90; TEMP 98.4
== END 2021-12-09 18:57 | DRG 393 ==
LOC: JER 21:18 → JERBED 12-07 00:41 → J5S 12-07 15:12
PROVIDERS: ADMIT Internal Medicine; ATTEND Family Medicine
PROC: 5A1945Z Respiratory Ventilation, 24-96 Consecutive Hours (ICD-10-PCS; principal; 2021-12-06)
PROC: 0DH63UZ Insertion of Feeding Device into Stomach, Percutaneous Approach (ICD-10-PCS; 2021-12-06)
PROC: 3E0G76Z Introduction of Nutritional Substance into Upper GI, Via Natural or Artificial Opening (ICD-10-PCS; 2021-12-08)
DX: K94.29 Other complications of gastrostomy (principal); L89.224 Pressure ulcer of left hip, stage 4; R53.2 Functional quadriplegia; G93.1 Anoxic brain damage, not elsewhere classified; J96.11 Chronic respiratory failure with hypoxia; R64 Cachexia; Z99.11 Dependence on respirator [ventilator] status; Y83.8 Other surgical procedures as the cause of abnormal reaction of the patient, or of later complication, without mention of misadventure at the time of the procedure; I25.10 Atherosclerotic heart disease of native coronary artery without angina pectoris; Z95.0 Presence of cardiac pacemaker; E11.22 Type 2 diabetes mellitus with diabetic chronic kidney disease; I12.9 Hypertensive chronic kidney disease with stage 1 through stage 4 chronic kidney disease, or unspecified chronic kidney disease; N18.9 Chronic kidney disease, unspecified; F03.90 Unspecified dementia, unspecified severity, without behavioral disturbance, psychotic disturbance, mood disturbance, and anxiety; K21.9 Gastro-esophageal reflux disease without esophagitis; I48.91 Unspecified atrial fibrillation; Z68.22 Body mass index [BMI] 22.0-22.9, adult; Z79.01 Long term (current) use of anticoagulants; D63.8 Anemia in other chronic diseases classified elsewhere; E83.52 Hypercalcemia; Z93.0 Tracheostomy status; D69.6 Thrombocytopenia, unspecified; L89.212 Pressure ulcer of right hip, stage 2; L89.322 Pressure ulcer of left buttock, stage 2; L89.622 Pressure ulcer of left heel, stage 2; L89.150 Pressure ulcer of sacral region, unstageable
CPT/HCPCS: 36415; 49440; 80053; 81003; 82962; 85025; 85027; 85610; 85730; 87086; 87186; 94002; 94640; 99285-25; C9803; J1644; U0003; U0005

== ENCOUNTER 2021-12-18 00:49 | Inpatient (IN) | payer OTHER ==
[2021-12-18 06:52] LABS: VENOUS BASE EXCESS 0.4 mmol/L (-2-2); VENOUS O2 SATURATION 65.4 % (70-80); VENOUS PCO2 41.2 mmHg (38-52); VENOUS PH 7.404 (7.310-7.410)
[2021-12-18 07:05] LABS: ALBUMIN 1.2 g/dl (3.4-5.0); ALK PHOS 153 U/L (45-117); BILIRUBIN,TOTAL 0.6 mg/dL (0.2-1); CALCIUM 9.5 mg/dL (8.5-10.1); CHLORIDE 100 mmol/L (98-107); CO2 27 mmol/L (21-32); CREATININE 3.2 mg/dL (0.55-1.3); GLUCOSE,RANDOM 98 mg/dL (74-106); SGOT/AST 43 U/L (15-37); SGPT/ALT 34 U/L (13-61); SODIUM 133 mmol/L (136-145); TOT PROT 6.5 g/dl (6.4-8.2)
[2021-12-18 08:01] LABS: HEMATOCRIT 20.1 % (35.4-49); MCH 30.9 pg (25.7-33.7); MCHC 32.3 g/dl (32.0-35.9); MEAN CELL VOLUME 95.5 fl (80-96); PLATELET COUNT 316 10^3/uL (134-434); RBC 2.11 M/mm3 (4.00-5.60); RDW 18.3 % (11.9-15.9); WHITE BLOOD COUNT 17.5 K/mm3 (4.0-10.0)
[2021-12-18 08:02] LABS: BASO % 0.3 % (0-2.0); EOS % 0.1 % (0-4.5); LYMPH % 4.7 % (8-40); MEAN PLT VOLUME 6.7 fl (7.5-11.1); MONO % 9.1 % (3.8-10.2); NEUT % 85.8 % (42.8-82.8)
[2021-12-18 08:03] LABS: HEMOGLOBIN 6.5 GM/dL (11.7-16.9)
[2021-12-18 08:04] LABS: ACTIVATED PTT 35.8 SECONDS (25.2-36.5); INR 1.74 (0.83-1.09); PROTHROMBIN TIME (PATIENT) 20.1 SEC (9.7-13.0)
[2021-12-18] MEDS ORDERED: SODIUM ZIRCONIUM CYCLOSILICATE (LOKELMA) 5 GM PACKET GT ONE (08:19)
[2021-12-18 09:17] LABS: URINE BILIRUBIN NEGATIVE (NEGATIVE); URINE COLOR YELLOW; URINE GLUCOSE (UA) NEGATIVE (NEGATIVE); URINE KETONE NEGATIVE (NEGATIVE)
[2021-12-18 09:18] LABS: PH,URINE > 9.0 (5.0-8.0); URINE APPEARANCE CLOUDY; URINE LEUK ESTERASE 3+ (NEGATIVE); URINE NITRITE NEGATIVE (NEGATIVE); URINE PROTEIN 1+ (NEGATIVE); URINE UROBILINOGEN 0.2 mg/dL (0.2-1.0)
[2021-12-18] MEDS ORDERED: SODIUM ZIRCONIUM CYCLOSILICATE (LOKELMA) 5 GM PACKET ONE (09:50)
[2021-12-18 11:36] LABS: EPI CELLS 2.6 /uL (0-25.1); HYALINE CASTS 0.64 /uL (0-3.1); URINE BACTERIA 5873 /uL (0-1359); URINE RBC 940 /uL (0-23.9); URINE WBC 698 /uL (0-25.8)
[2021-12-18] MEDS ORDERED: VANCOMYCIN 1,000 MG in DEXTROSE 5%-WATER - 250 ML IVPB ONE (11:45)
[2021-12-18] MEDS ORDERED: PIPERACILLIN/TAZOB 3.375 GM 3.375 GM in DEXTROSE 5%-WATER - 50 ML IVPB ONE (11:45)
[2021-12-18] MEDS ORDERED: VANCOMYCIN 1 GRAM (PRE-DOCKED) 1,000 MG/250 ML BAG IVPB ONE (12:10)
[2021-12-18] MEDS ORDERED: PIPERACILLIN/TAZOB 3.375 GM 3.375 GM/50 ML BAG IVPB ONE (12:10)
[2021-12-18 12:46] LABS: HEMATOCRIT 22.1 % (35.4-49); HEMOGLOBIN 7.4 GM/dL (11.7-16.9); MCH 31.2 pg (25.7-33.7); MCHC 33.4 g/dl (32.0-35.9); MEAN CELL VOLUME 93.1 fl (80-96); MEAN PLT VOLUME 6.7 fl (7.5-11.1); PLATELET COUNT 304 10^3/uL (134-434); RBC 2.37 M/mm3 (4.00-5.60); RDW 17.9 % (11.9-15.9); WHITE BLOOD COUNT 18.8 K/mm3 (4.0-10.0)
[2021-12-18 13:49] LABS: ALBUMIN 1.3 g/dl (3.4-5.0); CALCIUM 9.9 mg/dL (8.5-10.1)
[2021-12-18 13:52] LABS: ANISOCYTOSIS 0; CREATININE 3.2 mg/dL (0.55-1.3); HELMET CELLS 0; HOWELL-JOLLY BODIES 0; MACROCYTOSIS 0; OVALOCYTE 0; ROULEAU 0; SICKELED CELLS 0; TARGET CELLS 0; TEAR DROP CELLS 0; TOXIC GRANULATION 0
[2021-12-18 13:54] LABS: BILIRUBIN,TOTAL 0.9 mg/dL (0.2-1); TOT PROT 6.4 g/dl (6.4-8.2)
[2021-12-18 14:04] LABS: BLOOD UREA NITROGEN 99.4 mg/dL (7-18)
[2021-12-18] MEDS ORDERED: ALBUTEROL SO4 2.5/IPRATROPIUM 0.5 INH SOL 3 ML VIAL.NEB. NEB ONE (16:50)
[2021-12-18] MEDS ORDERED: DEXTROSE 50%-WATER - 25 GM/50 ML VIAL IVPUSH ONE ×2 (17:03→18:30)
[2021-12-18] MEDS: DEXTROSE 5%-NORMAL SALINE 1,000 ML IV SCH (17:08)
[2021-12-18] MEDS: ALBUTEROL SO4 2.5/IPRATROPIUM 0.5 INH SOL 3 ML VIAL.NEB. NEB SCH ×2 (17:09→20:29)
[2021-12-18] MEDS: INSULIN (NOVOLOG) ASPART 100 UNITS/ML 10ML VIAL SQ SCH ×2 (17:13→21:11)
[2021-12-18] MEDS ORDERED: DEXTROSE 50%-WATER 25 GM/50 ML DISP.SYRIN ONE (18:30)
[2021-12-18] MEDS ORDERED: PIPERACILLIN/TAZOBACTAM 2.25 GM VIAL IVPB ONE (19:54)
[2021-12-18] MEDS ORDERED: DEXTROSE 5%-WATER - 50 ML IVPB ONE (19:54)
[2021-12-18] MEDS: PIPERACILLIN/TAZOB 2.25 GM 2.25 GM in DEXTROSE 5%-WATER - 50 ML IVPB SCH (19:57)
[2021-12-18] MEDS: levETIRAcetam 500 MG/5 ML ORAL SOLUTION (UNIT-DOSE CUPS) GT SCH (21:01)
[2021-12-18] MEDS: METOPROLOL TARTRATE 25 MG TABLET (FP) GT SCH (21:01)
[2021-12-18] MEDS: ARTIFICIAL TEARS (POLYVINYL ALCOHOL) OPTH DROPS OU SCH (22:17)
[2021-12-19] MEDS ORDERED: DEXTROSE 5%-WATER - 50 ML IVPB ONE ×2 (01:24→08:39)
[2021-12-19] MEDS ORDERED: PIPERACILLIN/TAZOBACTAM 2.25 GM VIAL IVPB ONE ×2 (01:24→08:39)
[2021-12-19] MEDS: PIPERACILLIN/TAZOB 2.25 GM 2.25 GM in DEXTROSE 5%-WATER - 50 ML IVPB SCH ×2 (02:05→09:18)
[2021-12-19] MEDS: DEXTROSE 5%-NORMAL SALINE 1,000 ML IV SCH ×2 (02:08→13:29)
[2021-12-19] MEDS: INSULIN (NOVOLOG) ASPART 100 UNITS/ML 10ML VIAL SQ SCH ×4 (06:27→22:05)
[2021-12-19] MEDS: ALBUTEROL SO4 2.5/IPRATROPIUM 0.5 INH SOL 3 ML VIAL.NEB. NEB SCH ×4 (08:05→20:00)
[2021-12-19 08:53] LABS: BASO % 0.1 % (0-2.0); EOS % 0.4 % (0-4.5); HEMATOCRIT 21.4 % (35.4-49); MCH 30.6 pg (25.7-33.7); MCHC 32.8 g/dl (32.0-35.9); MEAN CELL VOLUME 93.3 fl (80-96); MEAN PLT VOLUME 6.9 fl (7.5-11.1); NEUT % 90.5 % (42.8-82.8); PLATELET COUNT 299 10^3/uL (134-434); RBC 2.29 M/mm3 (4.00-5.60); RDW 18.3 % (11.9-15.9); WHITE BLOOD COUNT 13.9 K/mm3 (4.0-10.0)
[2021-12-19] MEDS: AMINO ACIDS/PROTEIN HYDROLYS 30 ML LIQUID.PKT NGT SCH (09:18)
[2021-12-19] MEDS: levETIRAcetam 500 MG/5 ML ORAL SOLUTION (UNIT-DOSE CUPS) GT SCH ×2 (09:18→22:05)
[2021-12-19] MEDS: METOPROLOL TARTRATE 25 MG TABLET (FP) GT SCH ×2 (09:19→22:05)
[2021-12-19] MEDS: ARTIFICIAL TEARS (POLYVINYL ALCOHOL) OPTH DROPS OU SCH ×2 (09:20→22:05)
[2021-12-19 09:22] LABS: BLOOD UREA NITROGEN 87.8 mg/dL (7-18); CALCIUM 9.1 mg/dL (8.5-10.1)
[2021-12-19 09:25] LABS: CREATININE 3.2 mg/dL (0.55-1.3)
[2021-12-19 09:27] LABS: BILIRUBIN,TOTAL 0.6 mg/dL (0.2-1); TOT PROT 5.9 g/dl (6.4-8.2)
[2021-12-19] MEDS: FAMOTIDINE 40 MG/5 ML ORAL SUSPENSION PEG SCH (10:49)
[2021-12-19] MEDS: SCOPOLAMINE HYDROBROMIDE 1 PATCH PATCH.TD72 TD SCH (10:49)
[2021-12-19] MEDS: ACETAMINOPHEN 650 MG/20.3 ML ORAL SOLUTION (CUPS) GT PRN (11:56)
[2021-12-19] MEDS ORDERED: DEXTROSE 5%-WATER 100 ML IVPB ONE ×2 (12:26→21:51)
[2021-12-19] MEDS ORDERED: MEROPENEM 500 MG VIAL (RESTRICTED TO ID) IVPB ONE ×2 (12:26→21:50)
[2021-12-19] MEDS ORDERED: VANCOMYCIN/WATER FOR INJ (PEG) 1,000 MG/200 ML BAG IVPB ONE ×2 (13:00→16:15)
[2021-12-19] MEDS: MEROPENEM 500 MG in DEXTROSE 5%-WATER 100 ML IVPB SCH ×2 (13:27→22:05)
[2021-12-19 13:28] VITALS: BMI 21.8
[2021-12-19] MEDS ORDERED: INSULIN SLIDING SCALE (NOVOLOG) 1 VIAL SQ ONE (21:50)
[2021-12-20] MEDS: AMINO ACIDS/PROTEIN HYDROLYS 30 ML LIQUID.PKT NGT SCH (09:00)
[2021-12-20] MEDS: ALBUTEROL SO4 2.5/IPRATROPIUM 0.5 INH SOL 3 ML VIAL.NEB. NEB SCH ×4 (09:00→21:00)
[2021-12-20] MEDS ORDERED: MEROPENEM 500 MG VIAL (RESTRICTED TO ID) IVPB ONE ×2 (09:44→21:05)
[2021-12-20] MEDS ORDERED: DEXTROSE 5%-WATER 100 ML IVPB ONE ×2 (09:44→21:05)
[2021-12-20] MEDS: DEXTROSE 5%-NORMAL SALINE 1,000 ML IV SCH ×2 (10:12→14:27)
[2021-12-20] MEDS: levETIRAcetam 500 MG/5 ML ORAL SOLUTION (UNIT-DOSE CUPS) GT SCH ×2 (10:13→21:09)
[2021-12-20] MEDS: METOPROLOL TARTRATE 25 MG TABLET (FP) GT SCH ×3 (10:13→21:12)
[2021-12-20] MEDS: MEROPENEM 500 MG in DEXTROSE 5%-WATER 100 ML IVPB SCH ×2 (10:15→21:09)
[2021-12-20] MEDS: VITAMIN B COMP W-C 1 EA TABLET (NEPHRO-VITE) PO SCH (10:16)
[2021-12-20] MEDS: FAMOTIDINE 40 MG/5 ML ORAL SUSPENSION PEG SCH (10:17)
[2021-12-20] MEDS: ARTIFICIAL TEARS (POLYVINYL ALCOHOL) OPTH DROPS OU SCH ×2 (10:28→21:09)
[2021-12-20] MEDS: INSULIN (NOVOLOG) ASPART 100 UNITS/ML 10ML VIAL SQ SCH ×4 (11:37→21:24)
[2021-12-20 12:52] LABS: HEMATOCRIT 25.3 % (35.4-49); HEMOGLOBIN 8.4 GM/dL (11.7-16.9); MCH 30.6 pg (25.7-33.7); MCHC 33.1 g/dl (32.0-35.9); MEAN CELL VOLUME 92.4 fl (80-96); PLATELET COUNT 339 10^3/uL (134-434); RBC 2.74 M/mm3 (4.00-5.60); RDW 19.4 % (11.9-15.9); WHITE BLOOD COUNT 17.1 K/mm3 (4.0-10.0)
[2021-12-20 13:15] LABS: CALCIUM 9.2 mg/dL (8.5-10.1)
[2021-12-20 13:16] LABS: BLOOD UREA NITROGEN 87.9 mg/dL (7-18)
[2021-12-20] MEDS: COLLAGENASE CLOSTRIDIUM HIST. 30 GRAMS TUBE TP SCH (13:32)
[2021-12-20] MEDS: ACETAMINOPHEN 650 MG/20.3 ML ORAL SOLUTION (CUPS) GT PRN (13:42)
[2021-12-20 15:50] LABS: ANISOCYTOSIS 2+; MACROCYTOSIS 2+; TEAR DROP CELLS 1+
[2021-12-20] MEDS: DAPTOMYCIN 600 MG in SODIUM CHLORIDE 50 ML IVPB SCH (16:30)
[2021-12-20 17:13] LABS: BLOOD UREA NITROGEN 91.7 mg/dL (7-18)
[2021-12-20] MEDS: PIPERACILLIN/TAZOB 2.25 GM 2.25 GM in DEXTROSE 5%-WATER - 50 ML IVPB SCH ×2 (20:40→20:41)
[2021-12-21] MEDS: DEXTROSE 5%-NORMAL SALINE 1,000 ML IV SCH (05:48)
[2021-12-21] MEDS: INSULIN (NOVOLOG) ASPART 100 UNITS/ML 10ML VIAL SQ SCH ×4 (06:01→21:34)
[2021-12-21] MEDS: ALBUTEROL SO4 2.5/IPRATROPIUM 0.5 INH SOL 3 ML VIAL.NEB. NEB SCH ×4 (08:48→20:46)
[2021-12-21] MEDS: AMINO ACIDS/PROTEIN HYDROLYS 30 ML LIQUID.PKT NGT SCH (09:00)
[2021-12-21] MEDS ORDERED: DEXTROSE 5%-WATER 100 ML IVPB ONE ×2 (09:25→21:26)
[2021-12-21] MEDS ORDERED: MEROPENEM 500 MG VIAL (RESTRICTED TO ID) IVPB ONE ×2 (09:25→21:26)
[2021-12-21] MEDS: levETIRAcetam 500 MG/5 ML ORAL SOLUTION (UNIT-DOSE CUPS) GT SCH ×2 (09:34→21:24)
[2021-12-21] MEDS: METOPROLOL TARTRATE 25 MG TABLET (FP) GT SCH ×2 (09:34→21:24)
[2021-12-21] MEDS: MEROPENEM 500 MG in DEXTROSE 5%-WATER 100 ML IVPB SCH ×2 (09:34→21:35)
[2021-12-21] MEDS: VITAMIN B COMP W-C 1 EA TABLET (NEPHRO-VITE) PO SCH (09:34)
[2021-12-21] MEDS: ARTIFICIAL TEARS (POLYVINYL ALCOHOL) OPTH DROPS OU SCH ×2 (09:35→21:24)
[2021-12-21] MEDS: FAMOTIDINE 40 MG/5 ML ORAL SUSPENSION PEG SCH (09:35)
[2021-12-21] MEDS: COLLAGENASE CLOSTRIDIUM HIST. 30 GRAMS TUBE TP SCH (12:50)
[2021-12-21] MEDS: ACETAMINOPHEN 650 MG/20.3 ML ORAL SOLUTION (CUPS) GT PRN (13:08)
[2021-12-21 13:15] LABS: CALCIUM 8.8 mg/dL (8.5-10.1)
[2021-12-21 13:16] LABS: BASO % 0.3 % (0-2.0); BLOOD UREA NITROGEN 87.9 mg/dL (7-18); EOS % 0.8 % (0-4.5); HEMATOCRIT 30.1 % (35.4-49); HEMOGLOBIN 9.6 GM/dL (11.7-16.9); LYMPH % 4.6 % (8-40); MCH 30.2 pg (25.7-33.7); MCHC 31.9 g/dl (32.0-35.9); MEAN CELL VOLUME 94.6 fl (80-96); MEAN PLT VOLUME 6.8 fl (7.5-11.1); NEUT % 88.3 % (42.8-82.8); PLATELET COUNT 323 10^3/uL (134-434); RBC 3.18 M/mm3 (4.00-5.60); RDW 19.4 % (11.9-15.9); WHITE BLOOD COUNT 17.9 K/mm3 (4.0-10.0)
[2021-12-21 13:19] LABS: CREATININE 2.7 mg/dL (0.55-1.3)
[2021-12-22] MEDS: INSULIN (NOVOLOG) ASPART 100 UNITS/ML 10ML VIAL SQ SCH ×4 (06:06→21:22)
[2021-12-22] MEDS: ALBUTEROL SO4 2.5/IPRATROPIUM 0.5 INH SOL 3 ML VIAL.NEB. NEB SCH ×3 (07:40→20:35)
[2021-12-22 09:53] LABS: BASO % 0.3 % (0-2.0); EOS % 1.1 % (0-4.5); HEMATOCRIT 36.8 % (35.4-49); HEMOGLOBIN 11.6 GM/dL (11.7-16.9); LYMPH % 4.3 % (8-40); MCH 30.5 pg (25.7-33.7); MCHC 31.6 g/dl (32.0-35.9); MEAN CELL VOLUME 96.5 fl (80-96); MEAN PLT VOLUME 6.8 fl (7.5-11.1); MONO % 6.2 % (3.8-10.2); NEUT % 88.1 % (42.8-82.8); PLATELET COUNT 299 10^3/uL (134-434); RBC 3.81 M/mm3 (4.00-5.60); RDW 19.5 % (11.9-15.9)
[2021-12-22] MEDS ORDERED: MEROPENEM 500 MG VIAL (RESTRICTED TO ID) IVPB ONE ×2 (10:00→21:17)
[2021-12-22] MEDS ORDERED: DEXTROSE 5%-WATER 100 ML IVPB ONE ×2 (10:01→21:18)
[2021-12-22 10:02] LABS: CALCIUM 9.1 mg/dL (8.5-10.1)
[2021-12-22 10:03] LABS: BLOOD UREA NITROGEN 88.1 mg/dL (7-18)
[2021-12-22] MEDS: AMINO ACIDS/PROTEIN HYDROLYS 30 ML LIQUID.PKT NGT SCH (10:04)
[2021-12-22 10:05] LABS: CREATININE 2.5 mg/dL (0.55-1.3)
[2021-12-22] MEDS: MEROPENEM 500 MG in DEXTROSE 5%-WATER 100 ML IVPB SCH ×2 (10:05→21:21)
[2021-12-22] MEDS: VITAMIN B COMP W-C 1 EA TABLET (NEPHRO-VITE) PO SCH (10:05)
[2021-12-22] MEDS: METOPROLOL TARTRATE 25 MG TABLET (FP) GT SCH ×2 (10:05→21:38)
[2021-12-22 10:07] LABS: BILIRUBIN,TOTAL 0.6 mg/dL (0.2-1)
[2021-12-22] MEDS: ARTIFICIAL TEARS (POLYVINYL ALCOHOL) OPTH DROPS OU SCH ×2 (10:07→21:20)
[2021-12-22] MEDS: levETIRAcetam 500 MG/5 ML ORAL SOLUTION (UNIT-DOSE CUPS) GT SCH ×2 (10:07→21:21)
[2021-12-22] MEDS: FAMOTIDINE 40 MG/5 ML ORAL SUSPENSION PEG SCH (10:08)
[2021-12-22] MEDS: SCOPOLAMINE HYDROBROMIDE 1 PATCH PATCH.TD72 TD SCH (10:08)
[2021-12-22 10:13] LABS: ALBUMIN 1.3 g/dl (3.4-5.0)
[2021-12-22] MEDS: COLLAGENASE CLOSTRIDIUM HIST. 30 GRAMS TUBE TP SCH (12:15)
[2021-12-22] MEDS: DAPTOMYCIN 600 MG in SODIUM CHLORIDE 50 ML IVPB SCH (15:37)
[2021-12-22 20:10] LABS: GLIADIN ANTIBODY IGA 3 units (0-19); GLIADIN ANTIBODY IGG 1 units (0-19); TRANSGLUTAMINASE IGG 5 U/mL (0-5)
[2021-12-23] MEDS: INSULIN (NOVOLOG) ASPART 100 UNITS/ML 10ML VIAL SQ SCH ×4 (06:12→21:29)
[2021-12-23] MEDS: ALBUTEROL SO4 2.5/IPRATROPIUM 0.5 INH SOL 3 ML VIAL.NEB. NEB SCH ×4 (08:43→20:15)
[2021-12-23 08:55] LABS: HEMATOCRIT 23.9 % (35.4-49); HEMOGLOBIN 7.9 GM/dL (11.7-16.9); MCH 30.8 pg (25.7-33.7); MEAN CELL VOLUME 93.5 fl (80-96); MEAN PLT VOLUME 6.6 fl (7.5-11.1); PLATELET COUNT 337 10^3/uL (134-434); RBC 2.56 M/mm3 (4.00-5.60); RDW 18.4 % (11.9-15.9); WHITE BLOOD COUNT 14.9 K/mm3 (4.0-10.0)
[2021-12-23] MEDS: AMINO ACIDS/PROTEIN HYDROLYS 30 ML LIQUID.PKT NGT SCH (08:57)
[2021-12-23] MEDS ORDERED: MEROPENEM 500 MG VIAL (RESTRICTED TO ID) IVPB ONE ×2 (08:58→20:52)
[2021-12-23] MEDS ORDERED: DEXTROSE 5%-WATER 100 ML IVPB ONE ×2 (08:58→20:52)
[2021-12-23] MEDS: METOPROLOL TARTRATE 25 MG TABLET (FP) GT SCH ×2 (09:02→21:29)
[2021-12-23] MEDS: MEROPENEM 500 MG in DEXTROSE 5%-WATER 100 ML IVPB SCH ×2 (09:02→21:01)
[2021-12-23] MEDS: FAMOTIDINE 40 MG/5 ML ORAL SUSPENSION PEG SCH (09:03)
[2021-12-23] MEDS: VITAMIN B COMP W-C 1 EA TABLET (NEPHRO-VITE) PO SCH (09:03)
[2021-12-23] MEDS: levETIRAcetam 500 MG/5 ML ORAL SOLUTION (UNIT-DOSE CUPS) GT SCH ×2 (09:03→21:29)
[2021-12-23] MEDS: ARTIFICIAL TEARS (POLYVINYL ALCOHOL) OPTH DROPS OU SCH ×2 (09:05→21:29)
[2021-12-23] MEDS: COLLAGENASE CLOSTRIDIUM HIST. 30 GRAMS TUBE TP SCH (09:06)
[2021-12-23 09:23] LABS: CALCIUM 8.7 mg/dL (8.5-10.1)
[2021-12-23 09:24] LABS: BLOOD UREA NITROGEN 85.2 mg/dL (7-18)
[2021-12-23 09:27] LABS: CREATININE 2.3 mg/dL (0.55-1.3)
[2021-12-23 09:28] LABS: MAGNESIUM 2.1 mg/dL (1.8-2.4)
[2021-12-23] MEDS: ACETAMINOPHEN 650 MG/20.3 ML ORAL SOLUTION (CUPS) GT PRN (21:28)
[2021-12-24] MEDS: INSULIN (NOVOLOG) ASPART 100 UNITS/ML 10ML VIAL SQ SCH ×4 (06:26→22:09)
[2021-12-24] MEDS: ALBUTEROL SO4 2.5/IPRATROPIUM 0.5 INH SOL 3 ML VIAL.NEB. NEB SCH ×4 (08:20→20:41)
[2021-12-24 08:37] LABS: HEMATOCRIT 25.3 % (35.4-49); HEMOGLOBIN 8.1 GM/dL (11.7-16.9); MCH 30.3 pg (25.7-33.7); MEAN CELL VOLUME 94.8 fl (80-96); MEAN PLT VOLUME 6.9 fl (7.5-11.1); PLATELET COUNT 332 10^3/uL (134-434); RBC 2.67 M/mm3 (4.00-5.60); RDW 18.6 % (11.9-15.9); WHITE BLOOD COUNT 11.3 K/mm3 (4.0-10.0)
[2021-12-24 09:03] LABS: BLOOD UREA NITROGEN 89.9 mg/dL (7-18)
[2021-12-24 09:06] LABS: CREATININE 2.2 mg/dL (0.55-1.3); MAGNESIUM 2.1 mg/dL (1.8-2.4)
[2021-12-24] MEDS ORDERED: MEROPENEM 500 MG VIAL (RESTRICTED TO ID) IVPB ONE ×2 (09:28→21:44)
[2021-12-24] MEDS ORDERED: DEXTROSE 5%-WATER 100 ML IVPB ONE ×2 (09:28→21:44)
[2021-12-24] MEDS: VITAMIN B COMP W-C 1 EA TABLET (NEPHRO-VITE) PO SCH (09:32)
[2021-12-24] MEDS: MEROPENEM 500 MG in DEXTROSE 5%-WATER 100 ML IVPB SCH ×2 (09:32→21:53)
[2021-12-24] MEDS: levETIRAcetam 500 MG/5 ML ORAL SOLUTION (UNIT-DOSE CUPS) GT SCH ×2 (09:32→21:53)
[2021-12-24] MEDS: METOPROLOL TARTRATE 25 MG TABLET (FP) GT SCH ×2 (09:32→21:53)
[2021-12-24] MEDS: AMINO ACIDS/PROTEIN HYDROLYS 30 ML LIQUID.PKT NGT SCH (09:32)
[2021-12-24] MEDS: FAMOTIDINE 40 MG/5 ML ORAL SUSPENSION PEG SCH (09:34)
[2021-12-24] MEDS: ARTIFICIAL TEARS (POLYVINYL ALCOHOL) OPTH DROPS OU SCH ×2 (10:51→21:53)
[2021-12-24] MEDS: COLLAGENASE CLOSTRIDIUM HIST. 30 GRAMS TUBE TP SCH (10:51)
[2021-12-24] MEDS: DAPTOMYCIN 600 MG in SODIUM CHLORIDE 50 ML IVPB SCH (14:52)
[2021-12-25] MEDS: INSULIN (NOVOLOG) ASPART 100 UNITS/ML 10ML VIAL SQ SCH ×4 (06:30→22:08)
[2021-12-25] MEDS: ALBUTEROL SO4 2.5/IPRATROPIUM 0.5 INH SOL 3 ML VIAL.NEB. NEB SCH ×4 (07:50→20:30)
[2021-12-25] MEDS: AMINO ACIDS/PROTEIN HYDROLYS 30 ML LIQUID.PKT NGT SCH (08:05)
[2021-12-25] MEDS ORDERED: MEROPENEM 500 MG VIAL (RESTRICTED TO ID) IVPB ONE (09:44)
[2021-12-25] MEDS ORDERED: DEXTROSE 5%-WATER 100 ML IVPB ONE (09:45)
[2021-12-25] MEDS: VITAMIN B COMP W-C 1 EA TABLET (NEPHRO-VITE) PO SCH (09:46)
[2021-12-25] MEDS: METOPROLOL TARTRATE 25 MG TABLET (FP) GT SCH ×2 (09:46→21:57)
[2021-12-25] MEDS: levETIRAcetam 500 MG/5 ML ORAL SOLUTION (UNIT-DOSE CUPS) GT SCH ×2 (09:46→21:57)
[2021-12-25] MEDS: MEROPENEM 500 MG in DEXTROSE 5%-WATER 100 ML IVPB SCH ×2 (09:46→22:37)
[2021-12-25] MEDS: SCOPOLAMINE HYDROBROMIDE 1 PATCH PATCH.TD72 TD SCH (09:47)
[2021-12-25] MEDS: ARTIFICIAL TEARS (POLYVINYL ALCOHOL) OPTH DROPS OU SCH ×2 (09:47→21:57)
[2021-12-25] MEDS: FAMOTIDINE 40 MG/5 ML ORAL SUSPENSION PEG SCH (09:47)
[2021-12-25] MEDS: COLLAGENASE CLOSTRIDIUM HIST. 30 GRAMS TUBE TP SCH (12:07)
[2021-12-26] MEDS: INSULIN (NOVOLOG) ASPART 100 UNITS/ML 10ML VIAL SQ SCH ×4 (06:05→22:02)
[2021-12-26] MEDS: AMINO ACIDS/PROTEIN HYDROLYS 30 ML LIQUID.PKT NGT SCH (07:41)
[2021-12-26] MEDS: ALBUTEROL SO4 2.5/IPRATROPIUM 0.5 INH SOL 3 ML VIAL.NEB. NEB SCH ×4 (08:30→20:00)
[2021-12-26 09:23] LABS: HEMATOCRIT 25.6 % (35.4-49); HEMOGLOBIN 8.3 GM/dL (11.7-16.9); MCH 30.5 pg (25.7-33.7); MCHC 32.6 g/dl (32.0-35.9); MEAN CELL VOLUME 93.4 fl (80-96); MEAN PLT VOLUME 6.9 fl (7.5-11.1); PLATELET COUNT 365 10^3/uL (134-434); RBC 2.74 M/mm3 (4.00-5.60); WHITE BLOOD COUNT 16.4 K/mm3 (4.0-10.0)
[2021-12-26] MEDS ORDERED: DEXTROSE 5%-WATER 100 ML IVPB ONE ×2 (09:29→21:51)
[2021-12-26] MEDS ORDERED: MEROPENEM 500 MG VIAL (RESTRICTED TO ID) IVPB ONE ×2 (09:29→21:51)
[2021-12-26] MEDS: METOPROLOL TARTRATE 25 MG TABLET (FP) GT SCH ×2 (09:33→22:02)
[2021-12-26] MEDS: MEROPENEM 500 MG in DEXTROSE 5%-WATER 100 ML IVPB SCH ×2 (09:33→22:02)
[2021-12-26] MEDS: ARTIFICIAL TEARS (POLYVINYL ALCOHOL) OPTH DROPS OU SCH ×2 (09:33→22:02)
[2021-12-26] MEDS: VITAMIN B COMP W-C 1 EA TABLET (NEPHRO-VITE) PO SCH (09:33)
[2021-12-26] MEDS: levETIRAcetam 500 MG/5 ML ORAL SOLUTION (UNIT-DOSE CUPS) GT SCH ×2 (09:34→22:02)
[2021-12-26] MEDS: FAMOTIDINE 40 MG/5 ML ORAL SUSPENSION PEG SCH (09:35)
[2021-12-26 10:02] LABS: BLOOD UREA NITROGEN 79.5 mg/dL (7-18); CALCIUM 8.4 mg/dL (8.5-10.1)
[2021-12-26] MEDS: COLLAGENASE CLOSTRIDIUM HIST. 30 GRAMS TUBE TP SCH (12:08)
[2021-12-26] MEDS: ACETAMINOPHEN 650 MG/20.3 ML ORAL SOLUTION (CUPS) GT PRN (13:55)
[2021-12-26] MEDS: DAPTOMYCIN 600 MG in SODIUM CHLORIDE 50 ML IVPB SCH (15:20)
[2021-12-27] MEDS: INSULIN (NOVOLOG) ASPART 100 UNITS/ML 10ML VIAL SQ SCH ×4 (06:17→22:09)
[2021-12-27] MEDS: ALBUTEROL SO4 2.5/IPRATROPIUM 0.5 INH SOL 3 ML VIAL.NEB. NEB SCH ×4 (08:15→20:22)
[2021-12-27] MEDS ORDERED: DEXTROSE 5%-WATER 100 ML IVPB ONE ×2 (10:33→21:49)
[2021-12-27] MEDS ORDERED: MEROPENEM 500 MG VIAL (RESTRICTED TO ID) IVPB ONE ×2 (10:33→21:48)
[2021-12-27] MEDS: ARTIFICIAL TEARS (POLYVINYL ALCOHOL) OPTH DROPS OU SCH ×2 (10:37→22:09)
[2021-12-27] MEDS: COLLAGENASE CLOSTRIDIUM HIST. 30 GRAMS TUBE TP SCH (10:37)
[2021-12-27] MEDS: levETIRAcetam 500 MG/5 ML ORAL SOLUTION (UNIT-DOSE CUPS) GT SCH ×2 (10:37→22:09)
[2021-12-27] MEDS: VITAMIN B COMP W-C 1 EA TABLET (NEPHRO-VITE) PO SCH (10:38)
[2021-12-27] MEDS: METOPROLOL TARTRATE 25 MG TABLET (FP) GT SCH ×2 (10:38→22:09)
[2021-12-27] MEDS: MEROPENEM 500 MG in DEXTROSE 5%-WATER 100 ML IVPB SCH ×2 (10:39→22:09)
[2021-12-27] MEDS: AMINO ACIDS/PROTEIN HYDROLYS 30 ML LIQUID.PKT NGT SCH (10:40)
[2021-12-27] MEDS: FAMOTIDINE 40 MG/5 ML ORAL SUSPENSION PEG SCH (10:44)
[2021-12-27 12:10] LABS: ALBUMIN 1.2 g/dl (3.4-5.0); BLOOD UREA NITROGEN 83.5 mg/dL (7-18)
[2021-12-27 12:13] LABS: CREATININE 1.9 mg/dL (0.55-1.3)
[2021-12-27 12:15] LABS: BILIRUBIN,TOTAL 0.4 mg/dL (0.2-1); TOT PROT 6.5 g/dl (6.4-8.2)
[2021-12-27] MEDS: SODIUM ZIRCONIUM CYCLOSILICATE (LOKELMA) 5 GM PACKET PO SCH (15:15)
[2021-12-27] MEDS: ACETAMINOPHEN 650 MG/20.3 ML ORAL SOLUTION (CUPS) GT PRN (22:09)
[2021-12-28] MEDS: INSULIN (NOVOLOG) ASPART 100 UNITS/ML 10ML VIAL SQ SCH ×3 (06:52→17:22)
[2021-12-28] MEDS: ALBUTEROL SO4 2.5/IPRATROPIUM 0.5 INH SOL 3 ML VIAL.NEB. NEB SCH ×4 (08:06→20:33)
[2021-12-28] MEDS ORDERED: DEXTROSE 5%-WATER 100 ML IVPB ONE ×2 (09:26→20:35)
[2021-12-28] MEDS ORDERED: MEROPENEM 500 MG VIAL (RESTRICTED TO ID) IVPB ONE ×2 (09:26→20:35)
[2021-12-28] MEDS: AMINO ACIDS/PROTEIN HYDROLYS 30 ML LIQUID.PKT NGT SCH (09:31)
[2021-12-28] MEDS: METOPROLOL TARTRATE 25 MG TABLET (FP) GT SCH ×2 (09:31→21:01)
[2021-12-28] MEDS: levETIRAcetam 500 MG/5 ML ORAL SOLUTION (UNIT-DOSE CUPS) GT SCH ×2 (09:31→21:02)
[2021-12-28] MEDS: SODIUM ZIRCONIUM CYCLOSILICATE (LOKELMA) 5 GM PACKET PO SCH (09:31)
[2021-12-28] MEDS: VITAMIN B COMP W-C 1 EA TABLET (NEPHRO-VITE) PO SCH (09:31)
[2021-12-28] MEDS: MEROPENEM 500 MG in DEXTROSE 5%-WATER 100 ML IVPB SCH ×2 (09:31→21:01)
[2021-12-28] MEDS: SCOPOLAMINE HYDROBROMIDE 1 PATCH PATCH.TD72 TD SCH (09:32)
[2021-12-28] MEDS: FAMOTIDINE 40 MG/5 ML ORAL SUSPENSION PEG SCH (09:32)
[2021-12-28] MEDS: ARTIFICIAL TEARS (POLYVINYL ALCOHOL) OPTH DROPS OU SCH ×2 (10:06→22:03)
[2021-12-28 10:43] LABS: HEMATOCRIT 24.1 % (35.4-49); HEMOGLOBIN 7.7 GM/dL (11.7-16.9); MCHC 31.9 g/dl (32.0-35.9); MEAN PLT VOLUME 7.5 fl (7.5-11.1); PLATELET COUNT 335 10^3/uL (134-434); RBC 2.56 M/mm3 (4.00-5.60); RDW 17.8 % (11.9-15.9); WHITE BLOOD COUNT 18.7 K/mm3 (4.0-10.0)
[2021-12-28 11:01] LABS: CALCIUM 8.7 mg/dL (8.5-10.1)
[2021-12-28 11:02] LABS: BLOOD UREA NITROGEN 79.7 mg/dL (7-18); MAGNESIUM 1.9 mg/dL (1.8-2.4)
[2021-12-28 11:05] LABS: CREATININE 1.8 mg/dL (0.55-1.3)
[2021-12-28] MEDS: COLLAGENASE CLOSTRIDIUM HIST. 30 GRAMS TUBE TP SCH (12:06)
[2021-12-28] MEDS: DAPTOMYCIN 600 MG in SODIUM CHLORIDE 50 ML IVPB SCH (15:20)
[2021-12-28] MEDS: ACETAMINOPHEN 650 MG/20.3 ML ORAL SOLUTION (CUPS) GT PRN (21:02)
[2021-12-29] MEDS: INSULIN (NOVOLOG) ASPART 100 UNITS/ML 10ML VIAL SQ SCH ×2 (06:01→17:21)
[2021-12-29] MEDS: AMINO ACIDS/PROTEIN HYDROLYS 30 ML LIQUID.PKT NGT SCH (08:10)
[2021-12-29] MEDS: ALBUTEROL SO4 2.5/IPRATROPIUM 0.5 INH SOL 3 ML VIAL.NEB. NEB SCH ×4 (08:50→19:46)
[2021-12-29] MEDS ORDERED: MEROPENEM 500 MG VIAL (RESTRICTED TO ID) IVPB ONE ×2 (09:35→20:49)
[2021-12-29] MEDS ORDERED: DEXTROSE 5%-WATER 100 ML IVPB ONE ×2 (09:36→20:49)
[2021-12-29] MEDS: ARTIFICIAL TEARS (POLYVINYL ALCOHOL) OPTH DROPS OU SCH ×2 (09:39→21:27)
[2021-12-29] MEDS: levETIRAcetam 500 MG/5 ML ORAL SOLUTION (UNIT-DOSE CUPS) GT SCH ×2 (09:39→21:26)
[2021-12-29] MEDS: ZINC SULFATE 220 MG CAPSULE (FP) PEG SCH (09:39)
[2021-12-29] MEDS: VITAMIN B COMP W-C 1 EA TABLET (NEPHRO-VITE) PO SCH (09:39)
[2021-12-29] MEDS: FAMOTIDINE 40 MG/5 ML ORAL SUSPENSION PEG SCH (09:39)
[2021-12-29] MEDS: MEROPENEM 500 MG in DEXTROSE 5%-WATER 100 ML IVPB SCH ×2 (09:39→21:27)
[2021-12-29] MEDS: METOPROLOL TARTRATE 25 MG TABLET (FP) GT SCH ×2 (09:39→21:27)
[2021-12-29] MEDS ORDERED: IRON SUCROSE INJECTION 300 MG in SODIUM CHLORIDE 235 ML IVPB ONE (11:00)
[2021-12-29] MEDS: COLLAGENASE CLOSTRIDIUM HIST. 30 GRAMS TUBE TP SCH (12:01)
[2021-12-29 12:11] LABS: ALBUMIN 1.1 g/dl (3.4-5.0); BLOOD UREA NITROGEN 76.6 mg/dL (7-18)
[2021-12-29 12:14] LABS: CREATININE 1.8 mg/dL (0.55-1.3)
[2021-12-29 12:16] LABS: BILIRUBIN,TOTAL 0.3 mg/dL (0.2-1); TOT PROT 6.4 g/dl (6.4-8.2)
[2021-12-29 20:07] LABS: SARS-CoV-2 NAA Not Detected (Not Detected)
[2021-12-29] MEDS: ACETAMINOPHEN 650 MG/20.3 ML ORAL SOLUTION (CUPS) GT PRN (21:36)
[2021-12-30] MEDS: INSULIN (NOVOLOG) ASPART 100 UNITS/ML 10ML VIAL SQ SCH ×2 (06:27→17:04)
[2021-12-30] MEDS ORDERED: DEXTROSE 50%-WATER - 25 GM/50 ML VIAL IVPUSH PRN (08:34)
[2021-12-30] MEDS: ALBUTEROL SO4 2.5/IPRATROPIUM 0.5 INH SOL 3 ML VIAL.NEB. NEB SCH ×4 (08:48→19:25)
[2021-12-30] MEDS ORDERED: MEROPENEM 500 MG VIAL (RESTRICTED TO ID) IVPB ONE ×2 (09:14→20:36)
[2021-12-30] MEDS ORDERED: DEXTROSE 5%-WATER 100 ML IVPB ONE ×2 (09:15→20:37)
[2021-12-30] MEDS: levETIRAcetam 500 MG/5 ML ORAL SOLUTION (UNIT-DOSE CUPS) GT SCH ×2 (09:58→21:11)
[2021-12-30] MEDS: MEROPENEM 500 MG in DEXTROSE 5%-WATER 100 ML IVPB SCH ×2 (09:58→21:11)
[2021-12-30] MEDS: ZINC SULFATE 220 MG CAPSULE (FP) PEG SCH (09:58)
[2021-12-30] MEDS: METOPROLOL TARTRATE 25 MG TABLET (FP) GT SCH ×2 (09:58→23:03)
[2021-12-30] MEDS: AMINO ACIDS/PROTEIN HYDROLYS 30 ML LIQUID.PKT NGT SCH (10:01)
[2021-12-30] MEDS: VITAMIN B COMP W-C 1 EA TABLET (NEPHRO-VITE) PO SCH (10:01)
[2021-12-30] MEDS: FAMOTIDINE 40 MG/5 ML ORAL SUSPENSION PEG SCH (10:02)
[2021-12-30] MEDS: ARTIFICIAL TEARS (POLYVINYL ALCOHOL) OPTH DROPS OU SCH ×2 (10:03→21:11)
[2021-12-30] MEDS: COLLAGENASE CLOSTRIDIUM HIST. 30 GRAMS TUBE TP SCH (12:16)
[2021-12-30] MEDS: ACETAMINOPHEN 650 MG/20.3 ML ORAL SOLUTION (CUPS) GT PRN (14:09)
[2021-12-30] MEDS: DAPTOMYCIN 600 MG in SODIUM CHLORIDE 50 ML IVPB SCH (14:37)
[2021-12-31] MEDS: INSULIN (NOVOLOG) ASPART 100 UNITS/ML 10ML VIAL SQ SCH ×2 (07:28→17:10)
[2021-12-31] MEDS: ALBUTEROL SO4 2.5/IPRATROPIUM 0.5 INH SOL 3 ML VIAL.NEB. NEB SCH (08:51)
[2021-12-31] MEDS ORDERED: MEROPENEM 500 MG VIAL (RESTRICTED TO ID) IVPB ONE ×2 (09:11→21:07)
[2021-12-31] MEDS ORDERED: DEXTROSE 5%-WATER 100 ML IVPB ONE ×2 (09:11→21:07)
[2021-12-31] MEDS: METOPROLOL TARTRATE 25 MG TABLET (FP) GT SCH ×2 (09:38→21:12)
[2021-12-31] MEDS: ZINC SULFATE 220 MG CAPSULE (FP) PEG SCH (09:38)
[2021-12-31] MEDS: VITAMIN B COMP W-C 1 EA TABLET (NEPHRO-VITE) PO SCH (09:38)
[2021-12-31] MEDS: SCOPOLAMINE HYDROBROMIDE 1 PATCH PATCH.TD72 TD SCH (09:39)
[2021-12-31] MEDS: FAMOTIDINE 40 MG/5 ML ORAL SUSPENSION PEG SCH (09:39)
[2021-12-31] MEDS: AMINO ACIDS/PROTEIN HYDROLYS 30 ML LIQUID.PKT NGT SCH (09:39)
[2021-12-31] MEDS: ARTIFICIAL TEARS (POLYVINYL ALCOHOL) OPTH DROPS OU SCH ×2 (09:40→21:12)
[2021-12-31] MEDS: levETIRAcetam 500 MG/5 ML ORAL SOLUTION (UNIT-DOSE CUPS) GT SCH ×2 (09:41→21:12)
[2021-12-31] MEDS: MEROPENEM 500 MG in DEXTROSE 5%-WATER 100 ML IVPB SCH ×2 (10:59→21:11)
[2021-12-31] MEDS: COLLAGENASE CLOSTRIDIUM HIST. 30 GRAMS TUBE TP SCH (13:00)
[2022-01-01] MEDS: INSULIN (NOVOLOG) ASPART 100 UNITS/ML 10ML VIAL SQ SCH ×2 (06:08→17:23)
[2022-01-01 09:10] LABS: CALCIUM 8.9 mg/dL (8.5-10.1)
[2022-01-01 09:11] LABS: ALBUMIN 1.1 g/dl (3.4-5.0); BLOOD UREA NITROGEN 77.4 mg/dL (7-18)
[2022-01-01 09:13] LABS: CREATININE 1.7 mg/dL (0.55-1.3)
[2022-01-01 09:15] LABS: BILIRUBIN,TOTAL 0.3 mg/dL (0.2-1)
[2022-01-01] MEDS ORDERED: DEXTROSE 5%-WATER 100 ML IVPB ONE ×2 (09:45→21:49)
[2022-01-01] MEDS ORDERED: MEROPENEM 500 MG VIAL (RESTRICTED TO ID) IVPB ONE ×2 (09:45→21:49)
[2022-01-01] MEDS: MEROPENEM 500 MG in DEXTROSE 5%-WATER 100 ML IVPB SCH ×2 (09:51→21:55)
[2022-01-01] MEDS: VITAMIN B COMP W-C 1 EA TABLET (NEPHRO-VITE) PO SCH (12:19)
[2022-01-01] MEDS: FAMOTIDINE 40 MG/5 ML ORAL SUSPENSION PEG SCH (12:19)
[2022-01-01] MEDS: ZINC SULFATE 220 MG CAPSULE (FP) PEG SCH (12:19)
[2022-01-01] MEDS: levETIRAcetam 500 MG/5 ML ORAL SOLUTION (UNIT-DOSE CUPS) GT SCH ×2 (12:19→21:55)
[2022-01-01] MEDS: METOPROLOL TARTRATE 25 MG TABLET (FP) GT SCH ×2 (12:21→22:48)
[2022-01-01] MEDS: ARTIFICIAL TEARS (POLYVINYL ALCOHOL) OPTH DROPS OU SCH ×2 (12:21→21:56)
[2022-01-01] MEDS: AMINO ACIDS/PROTEIN HYDROLYS 30 ML LIQUID.PKT NGT SCH (12:21)
[2022-01-01] MEDS: COLLAGENASE CLOSTRIDIUM HIST. 30 GRAMS TUBE TP SCH (12:21)
[2022-01-01] MEDS: DAPTOMYCIN 600 MG in SODIUM CHLORIDE 50 ML IVPB SCH (16:11)
[2022-01-01] MEDS: ACETAMINOPHEN 650 MG/20.3 ML ORAL SOLUTION (CUPS) GT PRN (17:21)
[2022-01-01] MEDS ORDERED: INSULIN SLIDING SCALE (NOVOLOG) 1 VIAL SQ ONE (17:45)
[2022-01-02] MEDS: INSULIN (NOVOLOG) ASPART 100 UNITS/ML 10ML VIAL SQ SCH ×2 (05:51→18:06)
[2022-01-02] MEDS: AMINO ACIDS/PROTEIN HYDROLYS 30 ML LIQUID.PKT NGT SCH (11:51)
[2022-01-02] MEDS: ACETAMINOPHEN 650 MG/20.3 ML ORAL SOLUTION (CUPS) GT PRN (11:52)
[2022-01-02] MEDS: ZINC SULFATE 220 MG CAPSULE (FP) PEG SCH (11:52)
[2022-01-02] MEDS: VITAMIN B COMP W-C 1 EA TABLET (NEPHRO-VITE) PO SCH (11:52)
[2022-01-02] MEDS: METOPROLOL TARTRATE 25 MG TABLET (FP) GT SCH ×2 (11:52→23:07)
[2022-01-02] MEDS: levETIRAcetam 500 MG/5 ML ORAL SOLUTION (UNIT-DOSE CUPS) GT SCH ×2 (11:54→23:07)
[2022-01-02] MEDS: FAMOTIDINE 40 MG/5 ML ORAL SUSPENSION PEG SCH (11:58)
[2022-01-02] MEDS: COLLAGENASE CLOSTRIDIUM HIST. 30 GRAMS TUBE TP SCH (12:07)
[2022-01-02] MEDS: ARTIFICIAL TEARS (POLYVINYL ALCOHOL) OPTH DROPS OU SCH ×2 (12:07→23:07)
[2022-01-02 12:26] LABS: HEMATOCRIT 22.1 % (35.4-49); HEMOGLOBIN 7.2 GM/dL (11.7-16.9); MCH 30.7 pg (25.7-33.7); MCHC 32.4 g/dl (32.0-35.9); MEAN CELL VOLUME 94.6 fl (80-96); MEAN PLT VOLUME 7.4 fl (7.5-11.1); PLATELET COUNT 308 10^3/uL (134-434); RBC 2.34 M/mm3 (4.00-5.60); RDW 17.7 % (11.9-15.9); WHITE BLOOD COUNT 13.7 K/mm3 (4.0-10.0)
[2022-01-02] MEDS: MEROPENEM 500 MG in DEXTROSE 5%-WATER 100 ML IVPB SCH (12:29)
[2022-01-02 12:45] LABS: CALCIUM 8.7 mg/dL (8.5-10.1)
[2022-01-02 12:49] LABS: CREATININE 1.7 mg/dL (0.55-1.3)
[2022-01-02 12:51] LABS: BILIRUBIN,TOTAL 0.4 mg/dL (0.2-1); TOT PROT 5.9 g/dl (6.4-8.2)
[2022-01-02 12:58] LABS: ALBUMIN 0.8 g/dl (3.4-5.0)
[2022-01-03] MEDS: INSULIN (NOVOLOG) ASPART 100 UNITS/ML 10ML VIAL SQ SCH ×2 (05:42→17:22)
[2022-01-03] MEDS: AMINO ACIDS/PROTEIN HYDROLYS 30 ML LIQUID.PKT NGT SCH (09:56)
[2022-01-03] MEDS: ZINC SULFATE 220 MG CAPSULE (FP) PEG SCH (09:56)
[2022-01-03] MEDS: FAMOTIDINE 40 MG/5 ML ORAL SUSPENSION PEG SCH (09:56)
[2022-01-03] MEDS: COLLAGENASE CLOSTRIDIUM HIST. 30 GRAMS TUBE TP SCH (09:56)
[2022-01-03] MEDS: SCOPOLAMINE HYDROBROMIDE 1 PATCH PATCH.TD72 TD SCH (09:56)
[2022-01-03] MEDS: VITAMIN B COMP W-C 1 EA TABLET (NEPHRO-VITE) PO SCH (09:56)
[2022-01-03] MEDS: METOPROLOL TARTRATE 25 MG TABLET (FP) GT SCH ×2 (09:56→22:13)
[2022-01-03] MEDS: ARTIFICIAL TEARS (POLYVINYL ALCOHOL) OPTH DROPS OU SCH ×2 (09:56→22:13)
[2022-01-03] MEDS: levETIRAcetam 500 MG/5 ML ORAL SOLUTION (UNIT-DOSE CUPS) GT SCH ×2 (09:56→22:13)
[2022-01-03] MEDS: ACETAMINOPHEN 650 MG/20.3 ML ORAL SOLUTION (CUPS) GT PRN (13:57)
[2022-01-03 19:08] LABS: SARS-CoV-2 NAA Not Detected (Not Detected)
[2022-01-04] MEDS: INSULIN (NOVOLOG) ASPART 100 UNITS/ML 10ML VIAL SQ SCH (05:48)
[2022-01-04] MEDS: levETIRAcetam 500 MG/5 ML ORAL SOLUTION (UNIT-DOSE CUPS) GT SCH (10:46)
[2022-01-04] MEDS: AMINO ACIDS/PROTEIN HYDROLYS 30 ML LIQUID.PKT NGT SCH (10:46)
[2022-01-04] MEDS: METOPROLOL TARTRATE 25 MG TABLET (FP) GT SCH (10:47)
[2022-01-04] MEDS: VITAMIN B COMP W-C 1 EA TABLET (NEPHRO-VITE) PO SCH (10:47)
[2022-01-04] MEDS: COLLAGENASE CLOSTRIDIUM HIST. 30 GRAMS TUBE TP SCH (10:48)
[2022-01-04] MEDS: FAMOTIDINE 40 MG/5 ML ORAL SUSPENSION PEG SCH (10:48)
[2022-01-04] MEDS: ZINC SULFATE 220 MG CAPSULE (FP) PEG SCH (10:48)
[2022-01-04] MEDS: ARTIFICIAL TEARS (POLYVINYL ALCOHOL) OPTH DROPS OU SCH (10:48)
[2022-01-04 12:29] VITALS: BP 125/70
[2022-01-04 15:24] VITALS: PULSE 90; TEMP 98.2
== END 2022-01-04 15:36 | DRG 870 ==
LOC: JER 00:49 → JERBED 05:03 → J5S 18:20
PROVIDERS: ADMIT Hospitalist; ATTEND Family Medicine
PROC: 5A1955Z Respiratory Ventilation, Greater than 96 Consecutive Hours (ICD-10-PCS; principal; 2021-12-18)
PROC: 30233N1 Transfusion of Nonautologous Red Blood Cells into Peripheral Vein, Percutaneous Approach (ICD-10-PCS; 2021-12-19)
DX: A41.89 Other specified sepsis (principal); L89.224 Pressure ulcer of left hip, stage 4; L89.523 Pressure ulcer of left ankle, stage 3; J18.9 Pneumonia, unspecified organism; R53.2 Functional quadriplegia; R65.21 Severe sepsis with septic shock; N17.9 Acute kidney failure, unspecified; R64 Cachexia; N39.0 Urinary tract infection, site not specified; J96.11 Chronic respiratory failure with hypoxia; I13.0 Hypertensive heart and chronic kidney disease with heart failure and stage 1 through stage 4 chronic kidney disease, or unspecified chronic kidney disease; I95.9 Hypotension, unspecified; Z93.1 Gastrostomy status; Z93.0 Tracheostomy status; I25.10 Atherosclerotic heart disease of native coronary artery without angina pectoris; E11.9 Type 2 diabetes mellitus without complications; I48.91 Unspecified atrial fibrillation; D69.6 Thrombocytopenia, unspecified; F03.90 Unspecified dementia, unspecified severity, without behavioral disturbance, psychotic disturbance, mood disturbance, and anxiety; E87.5 Hyperkalemia; R33.9 Retention of urine, unspecified; Z68.21 Body mass index [BMI] 21.0-21.9, adult; D63.1 Anemia in chronic kidney disease; D72.829 Elevated white blood cell count, unspecified
CPT/HCPCS: 36415; 71045-TC-FY; 80048; 80053; 81003; 82272; 82550; 82553; 82728; 82784; 82803; 82962; 83516; 83540; 83550; 83605; 83735; 84155; 84165; 84484; 85025; 85027; 85045; 85610; 85730; 86334; 86922; 87040; 87086; 87186; 93005; 93010; 94002; 94640; 99285-25; C9803-CS; G0480; J0878; J1756; P9058; U0003; U0005

== ENCOUNTER 2022-01-25 02:43 | Inpatient (IN) | payer OTHER ==
[2022-01-25 04:14] LABS: HEMATOCRIT 19.2 % (35.4-49); MCH 31.2 pg (25.7-33.7); MCHC 31.6 g/dl (32.0-35.9); MEAN CELL VOLUME 98.6 fl (80-96); MEAN PLT VOLUME 6.7 fl (7.5-11.1); PLATELET COUNT 405 10^3/uL (134-434); RBC 1.95 M/mm3 (4.00-5.60); RDW 18.3 % (11.9-15.9); WHITE BLOOD COUNT 21.8 K/mm3 (4.0-10.0)
[2022-01-25 04:22] LABS: HEMOGLOBIN 6.1 GM/dL (11.7-16.9)
[2022-01-25 04:26] LABS: INR 1.52 (0.83-1.09); PROTHROMBIN TIME (PATIENT) 17.6 SEC (9.7-13.0)
[2022-01-25 04:28] LABS: ACTIVATED PTT 32.9 SECONDS (25.2-36.5)
[2022-01-25 04:38] LABS: CHLORIDE 105 mmol/L (98-107); SODIUM 137 mmol/L (136-145)
[2022-01-25 04:40] LABS: CALCIUM 10.3 mg/dL (8.5-10.1); CO2 26 mmol/L (21-32); GLUCOSE,RANDOM 67 mg/dL (74-106); MAGNESIUM 2.7 mg/dL (1.8-2.4)
[2022-01-25 04:41] LABS: ALBUMIN 1.3 g/dl (3.4-5.0)
[2022-01-25 04:43] LABS: SGOT/AST 44 U/L (15-37); SGPT/ALT 30 U/L (13-61)
[2022-01-25 04:44] LABS: CREATININE 4.2 mg/dL (0.55-1.3); PHOSPHOROUS 2.1 mg/dL (2.5-4.9)
[2022-01-25 04:45] LABS: BILIRUBIN,TOTAL 0.4 mg/dL (0.2-1)
[2022-01-25 04:46] LABS: ALK PHOS 170 U/L (45-117)
[2022-01-25] MEDS ORDERED: LACTATED RINGERS SOLUTION 1000 ML INFUS.BAG IV ONE ×2 (04:53→07:44)
[2022-01-25] MEDS ORDERED: VANCOMYCIN 1,000 MG in DEXTROSE 5%-WATER - 250 ML IVPB ONE (04:53)
[2022-01-25] MEDS ORDERED: PIPERACILLIN/TAZOB 4.5 GM 4.5 GM in DEXTROSE 5%-WATER 100 ML IVPB ONE (04:53)
[2022-01-25 05:12] LABS: ANION GAP 6 MMOL/L (8-16); BLOOD UREA NITROGEN 104.8 mg/dL (7-18)
[2022-01-25] MEDS ORDERED: DEXTROSE 50%-WATER - 25 GM/50 ML VIAL IVPUSH ONE ×2 (05:50→07:31)
[2022-01-25] MEDS ORDERED: DEXTROSE 50%-WATER 25 GM/50 ML DISP.SYRIN ONE (06:33)
[2022-01-25] MEDS ORDERED: PIPERACILLIN/TAZOB 4.5 GM 4.5 GM/100 ML BAG IVPB ONE (06:34)
[2022-01-25 06:53] LABS: ANISOCYTOSIS 1+; MACROCYTOSIS 1+; OVALOCYTE 1+
[2022-01-25 06:57] LABS: CHLORIDE 108 mmol/L (98-107); SODIUM 138 mmol/L (136-145)
[2022-01-25 06:58] LABS: CALCIUM 10.1 mg/dL (8.5-10.1)
[2022-01-25 06:59] LABS: BLOOD UREA NITROGEN 103.7 mg/dL (7-18); CO2 25 mmol/L (21-32); GLUCOSE,RANDOM 62 mg/dL (74-106)
[2022-01-25 07:02] LABS: CREATININE 4.2 mg/dL (0.55-1.3)
[2022-01-25 07:24] LABS: ANION GAP 5 MMOL/L (8-16)
[2022-01-25] MEDS ORDERED: VANCOMYCIN 1 GRAM (PRE-DOCKED) 1,000 MG/250 ML BAG IVPB ONE (07:25)
[2022-01-25] MEDS ORDERED: INSULIN REGULAR HUMAN 100 UNITS/ML *VIAL IVPUSH ONE (07:32)
[2022-01-25] MEDS ORDERED: CALCIUM GLUCONATE 10% - 1,000 MG/10 ML VIAL IVPB ONE (07:32)
[2022-01-25] MEDS ORDERED: DEXTROSE 50%-WATER - 25 GM/50 ML VIAL ONE (07:41)
[2022-01-25] MEDS ORDERED: CALCIUM GLUC IN NACL, ISO-OSM 2 GM/100 ML BAG IVPB ONE (07:42)
[2022-01-25] MEDS ORDERED: SODIUM BICARBONATE 4.2% 5 MEQ/10 ML DISP.SYRIN IVPUSH ONE ×2 (07:43→07:52)
[2022-01-25 08:07] LABS: EPI CELLS 16 /uL (0-25.1); HYALINE CASTS 21 /uL (0-3.1); PH,URINE 8.5 (5.0-8.0); URINE APPEARANCE TURBID; URINE BACTERIA >9,000 /uL (0-1359); URINE BILIRUBIN NEGATIVE (NEGATIVE); URINE COLOR YELLOW; URINE GLUCOSE (UA) NEGATIVE (NEGATIVE); URINE KETONE NEGATIVE (NEGATIVE); URINE LEUK ESTERASE 3+ (NEGATIVE); URINE NITRITE NEGATIVE (NEGATIVE); URINE PROTEIN 2+ (NEGATIVE); URINE WBC 13470 /uL (0-25.8)
[2022-01-25 09:10] LABS: URINE RBC 108.5 /uL (0-23.9); YEAST NO SEEN (NEGATIVE)
[2022-01-25] MEDS ORDERED: SODIUM ZIRCONIUM CYCLOSILICATE (LOKELMA) 5 GM PACKET PO SCH (10:00)
[2022-01-25] MEDS ORDERED: PANTOPRAZOLE SODIUM 40 MG VIAL ONE (12:24)
[2022-01-25] MEDS: PANTOPRAZOLE SODIUM 40 MG VIAL IVPUSH SCH (12:36)
[2022-01-25 12:37] LABS: HEMATOCRIT 21.7 % (35.4-49); MEAN CELL VOLUME 96.7 fl (80-96); MEAN PLT VOLUME 6.8 fl (7.5-11.1); PLATELET COUNT 340 10^3/uL (134-434); RBC 2.25 M/mm3 (4.00-5.60); RDW 18.2 % (11.9-15.9); WHITE BLOOD COUNT 17.9 K/mm3 (4.0-10.0)
[2022-01-25 12:39] LABS: CHLORIDE 107 mmol/L (98-107); SODIUM 136 mmol/L (136-145)
[2022-01-25 12:41] LABS: ALBUMIN 1.2 g/dl (3.4-5.0); BLOOD UREA NITROGEN 101.1 mg/dL (7-18); CALCIUM 10.1 mg/dL (8.5-10.1); CO2 23 mmol/L (21-32); GLUCOSE,RANDOM 92 mg/dL (74-106)
[2022-01-25 12:44] LABS: SGOT/AST 33 U/L (15-37); SGPT/ALT 25 U/L (13-61)
[2022-01-25 12:46] LABS: BILIRUBIN,TOTAL 0.5 mg/dL (0.2-1); TOT PROT 6.5 g/dl (6.4-8.2)
[2022-01-25 12:47] LABS: ALK PHOS 156 U/L (45-117)
[2022-01-25 13:16] LABS: ANION GAP 6 MMOL/L (8-16)
[2022-01-25] MEDS ORDERED: SODIUM BICARBONATE 8.4% 50 MEQ/50 ML DISP.SYRIN IVPUSH ONE (13:38)
[2022-01-25] MEDS ORDERED: SODIUM CHLORIDE 500 ML IV STA (13:38)
[2022-01-25] MEDS ORDERED: SODIUM BICARBONATE 8.4% - 50 ML ONE (13:59)
[2022-01-25] MEDS ORDERED: SODIUM ZIRCONIUM CYCLOSILICATE (LOKELMA) 5 GM PACKET ONE (13:59)
[2022-01-25 14:21] LABS: ANISOCYTOSIS 0; HELMET CELLS 0; HOWELL-JOLLY BODIES 0; MACROCYTOSIS 0; OVALOCYTE 0; ROULEAU 0; SICKELED CELLS 0; TARGET CELLS 0; TEAR DROP CELLS 0; TOXIC GRANULATION 0
[2022-01-25] MEDS: SCOPOLAMINE HYDROBROMIDE 1 PATCH PATCH.TD72 TD SCH (14:32)
[2022-01-25] MEDS: DEXTROSE 5%-0.45% SALINE 1,000 ML IV SCH (14:33)
[2022-01-25] MEDS: SODIUM ZIRCONIUM CYCLOSILICATE (LOKELMA) 5 GM PACKET PO SCH (14:33)
[2022-01-25] MEDS ORDERED: ALBUTEROL SO4 2.5/IPRATROPIUM 0.5 INH SOL 3 ML VIAL.NEB. NEB ONE (17:26)
[2022-01-25] MEDS: ALBUTEROL SO4 2.5/IPRATROPIUM 0.5 INH SOL 3 ML VIAL.NEB. NEB SCH ×2 (17:27→20:25)
[2022-01-26] MEDS: SODIUM ZIRCONIUM CYCLOSILICATE (LOKELMA) 5 GM PACKET PO SCH ×3 (00:20→13:16)
[2022-01-26] MEDS: METOPROLOL TARTRATE 25 MG TABLET (FP) GT SCH ×3 (00:20→21:58)
[2022-01-26] MEDS: levETIRAcetam 500 MG/5 ML ORAL SOLUTION (UNIT-DOSE CUPS) GT SCH ×3 (00:20→22:55)
[2022-01-26] MEDS: ARTIFICIAL TEARS (POLYVINYL ALCOHOL) OPTH DROPS OU SCH ×3 (00:20→21:57)
[2022-01-26] MEDS: PANTOPRAZOLE SODIUM 40 MG VIAL IVPUSH SCH ×3 (00:20→22:00)
[2022-01-26 07:52] LABS: BASO % 0.4 % (0-2.0); EOS % 1.5 % (0-4.5); HEMATOCRIT 24.3 % (35.4-49); HEMOGLOBIN 7.9 GM/dL (11.7-16.9); LYMPH % 3.6 % (8-40); MCH 31.3 pg (25.7-33.7); MCHC 32.6 g/dl (32.0-35.9); MEAN CELL VOLUME 95.9 fl (80-96); MEAN PLT VOLUME 7.1 fl (7.5-11.1); MONO % 5.8 % (3.8-10.2); NEUT % 88.7 % (42.8-82.8); PLATELET COUNT 347 10^3/uL (134-434); RBC 2.53 M/mm3 (4.00-5.60); RDW 17.8 % (11.9-15.9); WHITE BLOOD COUNT 16.3 K/mm3 (4.0-10.0)
[2022-01-26] MEDS: ALBUTEROL SO4 2.5/IPRATROPIUM 0.5 INH SOL 3 ML VIAL.NEB. NEB SCH ×4 (07:55→20:25)
[2022-01-26 07:57] LABS: CHLORIDE 107 mmol/L (98-107); SODIUM 140 mmol/L (136-145)
[2022-01-26 08:16] LABS: CALCIUM 9.9 mg/dL (8.5-10.1)
[2022-01-26 08:17] LABS: ALBUMIN 1.2 g/dl (3.4-5.0); ANION GAP 6 MMOL/L (8-16); CO2 26 mmol/L (21-32); GLUCOSE,RANDOM 70 mg/dL (74-106); MAGNESIUM 2.6 mg/dL (1.8-2.4)
[2022-01-26 08:20] LABS: CREATININE 4.2 mg/dL (0.55-1.3); PHOSPHOROUS 2.8 mg/dL (2.5-4.9); SGOT/AST 21 U/L (15-37); SGPT/ALT 23 U/L (13-61)
[2022-01-26 08:21] LABS: BILIRUBIN,TOTAL 0.7 mg/dL (0.2-1); TOT PROT 6.3 g/dl (6.4-8.2)
[2022-01-26 08:23] LABS: ALK PHOS 141 U/L (45-117)
[2022-01-26 08:27] LABS: BLOOD UREA NITROGEN 104.5 mg/dL (7-18)
[2022-01-26] MEDS: ACETAMINOPHEN 650 MG/20.3 ML ORAL SOLUTION (CUPS) GT PRN (11:17)
[2022-01-26 15:44] VITALS: BMI 23.0
[2022-01-26] MEDS: DEXTROSE 5%-0.45% SALINE 1,000 ML IV SCH (16:18)
[2022-01-26] MEDS ORDERED: FLU VACC QS2021-22(6MOS UP)/PF 60 MCG/0.5 ML SYRINGE IM ONE (18:00)
[2022-01-27 07:38] LABS: HEMATOCRIT 24.9 % (35.4-49); MCH 31.1 pg (25.7-33.7); MEAN CELL VOLUME 97.2 fl (80-96); MEAN PLT VOLUME 6.8 fl (7.5-11.1); PLATELET COUNT 349 10^3/uL (134-434); RBC 2.56 M/mm3 (4.00-5.60); RDW 17.9 % (11.9-15.9); WHITE BLOOD COUNT 11.9 K/mm3 (4.0-10.0)
[2022-01-27 07:53] LABS: CALCIUM 9.5 mg/dL (8.5-10.1)
[2022-01-27 07:54] LABS: ALBUMIN 1.2 g/dl (3.4-5.0); BLOOD UREA NITROGEN 97.4 mg/dL (7-18)
[2022-01-27 07:57] LABS: CREATININE 4.1 mg/dL (0.55-1.3)
[2022-01-27 07:59] LABS: BILIRUBIN,TOTAL 0.5 mg/dL (0.2-1); TOT PROT 6.4 g/dl (6.4-8.2)
[2022-01-27] MEDS: ALBUTEROL SO4 2.5/IPRATROPIUM 0.5 INH SOL 3 ML VIAL.NEB. NEB SCH ×4 (08:00→20:20)
[2022-01-27] MEDS: levETIRAcetam 500 MG/5 ML ORAL SOLUTION (UNIT-DOSE CUPS) GT SCH ×2 (10:03→21:47)
[2022-01-27] MEDS: ARTIFICIAL TEARS (POLYVINYL ALCOHOL) OPTH DROPS OU SCH ×2 (10:04→21:26)
[2022-01-27] MEDS: PANTOPRAZOLE SODIUM 40 MG VIAL IVPUSH SCH ×2 (10:24→21:26)
[2022-01-27] MEDS: METOPROLOL TARTRATE 25 MG TABLET (FP) GT SCH ×2 (10:24→21:26)
[2022-01-27] MEDS: DEXTROSE 5%-0.45% SALINE 1,000 ML IV SCH (14:25)
[2022-01-27] MEDS: SODIUM ZIRCONIUM CYCLOSILICATE (LOKELMA) 5 GM PACKET PO SCH (14:25)
[2022-01-27] MEDS: ERTAPENEM SODIUM 0.5 GM in SODIUM CHLORIDE 50 ML IVPB SCH (15:30)
[2022-01-27] MEDS: ACETAMINOPHEN 650 MG/20.3 ML ORAL SOLUTION (CUPS) GT PRN (17:05)
[2022-01-28] MEDS: ALBUTEROL SO4 2.5/IPRATROPIUM 0.5 INH SOL 3 ML VIAL.NEB. NEB SCH ×4 (08:15→20:47)
[2022-01-28] MEDS: DEXTROSE 5%-0.45% SALINE 1,000 ML IV SCH (09:13)
[2022-01-28] MEDS: METOPROLOL TARTRATE 25 MG TABLET (FP) GT SCH ×2 (09:14→22:16)
[2022-01-28] MEDS: PANTOPRAZOLE SODIUM 40 MG VIAL IVPUSH SCH ×2 (09:14→22:16)
[2022-01-28] MEDS: levETIRAcetam 500 MG/5 ML ORAL SOLUTION (UNIT-DOSE CUPS) GT SCH ×2 (09:14→22:15)
[2022-01-28] MEDS: SODIUM ZIRCONIUM CYCLOSILICATE (LOKELMA) 5 GM PACKET PO SCH ×2 (09:14→09:19)
[2022-01-28] MEDS: ARTIFICIAL TEARS (POLYVINYL ALCOHOL) OPTH DROPS OU SCH ×2 (09:15→22:14)
[2022-01-28] MEDS: ACETAMINOPHEN 650 MG/20.3 ML ORAL SOLUTION (CUPS) GT PRN ×2 (09:20→22:16)
[2022-01-28] MEDS: ERTAPENEM SODIUM 0.5 GM in SODIUM CHLORIDE 50 ML IVPB SCH (09:25)
[2022-01-28] MEDS: SCOPOLAMINE HYDROBROMIDE 1 PATCH PATCH.TD72 TD SCH (11:35)
[2022-01-28] MEDS ORDERED: ALBUTEROL SO4 2.5/IPRATROPIUM 0.5 INH SOL 3 ML VIAL.NEB. NEB ONE (12:34)
[2022-01-29] MEDS: ALBUTEROL SO4 2.5/IPRATROPIUM 0.5 INH SOL 3 ML VIAL.NEB. NEB SCH ×4 (08:19→20:34)
[2022-01-29] MEDS ORDERED: FUROSEMIDE 40 MG/4 ML INJECTABLE VIAL IVPUSH ONE (09:04)
[2022-01-29] MEDS: MULTIVITAMINS (DAILY MVI) TABLET (FP) PO SCH (10:25)
[2022-01-29] MEDS: AMINO ACIDS/PROTEIN HYDROLYS 30 ML LIQUID.PKT PO SCH (10:25)
[2022-01-29] MEDS: ZINC SULFATE 220 MG CAPSULE (FP) PO SCH (10:25)
[2022-01-29] MEDS: ERTAPENEM SODIUM 0.5 GM in SODIUM CHLORIDE 50 ML IVPB SCH (10:25)
[2022-01-29] MEDS: levETIRAcetam 500 MG/5 ML ORAL SOLUTION (UNIT-DOSE CUPS) GT SCH ×2 (10:25→23:24)
[2022-01-29] MEDS: METOPROLOL TARTRATE 25 MG TABLET (FP) GT SCH ×2 (10:25→21:30)
[2022-01-29] MEDS: PANTOPRAZOLE SODIUM 40 MG VIAL IVPUSH SCH ×2 (10:26→21:30)
[2022-01-29] MEDS: ARTIFICIAL TEARS (POLYVINYL ALCOHOL) OPTH DROPS OU SCH ×2 (10:26→21:30)
[2022-01-29] MEDS: SODIUM HYPOCHLORITE 0.25%- 473 ML BULK BOTTLE TP SCH (10:29)
[2022-01-29 12:27] LABS: ALBUMIN 1.3 g/dl (3.4-5.0); CALCIUM 9.1 mg/dL (8.5-10.1)
[2022-01-29 12:28] LABS: BLOOD UREA NITROGEN 89.4 mg/dL (7-18)
[2022-01-29 12:30] LABS: CREATININE 3.5 mg/dL (0.55-1.3)
[2022-01-29 12:31] LABS: BILIRUBIN,TOTAL 0.4 mg/dL (0.2-1); TOT PROT 6.5 g/dl (6.4-8.2)
[2022-01-30] MEDS: ALBUTEROL SO4 2.5/IPRATROPIUM 0.5 INH SOL 3 ML VIAL.NEB. NEB SCH ×2 (08:17→12:35)
[2022-01-30] MEDS: ZINC SULFATE 220 MG CAPSULE (FP) PO SCH (09:20)
[2022-01-30] MEDS: METOPROLOL TARTRATE 25 MG TABLET (FP) GT SCH ×2 (09:20→22:16)
[2022-01-30] MEDS: levETIRAcetam 500 MG/5 ML ORAL SOLUTION (UNIT-DOSE CUPS) GT SCH ×2 (09:20→22:16)
[2022-01-30] MEDS: MULTIVITAMINS (DAILY MVI) TABLET (FP) PO SCH (09:20)
[2022-01-30] MEDS: AMINO ACIDS/PROTEIN HYDROLYS 30 ML LIQUID.PKT PO SCH (09:20)
[2022-01-30] MEDS: PANTOPRAZOLE SODIUM 40 MG VIAL IVPUSH SCH ×2 (09:20→22:16)
[2022-01-30] MEDS: ARTIFICIAL TEARS (POLYVINYL ALCOHOL) OPTH DROPS OU SCH ×2 (09:21→22:17)
[2022-01-30] MEDS: ERTAPENEM SODIUM 0.5 GM in SODIUM CHLORIDE 50 ML IVPB SCH (09:49)
[2022-01-30] MEDS ORDERED: POTASSIUM CHLORIDE ORAL LIQUID 20 MEQ/15 ML PO ONE (15:32)
[2022-01-30] MEDS: FUROSEMIDE 40 MG/5 ML UNIT-DOSE CUP PO SCH (18:44)
[2022-01-31 07:37] LABS: BASO % 0.8 % (0-2.0); EOS % 0.9 % (0-4.5); HEMATOCRIT 29.1 % (35.4-49); HEMOGLOBIN 9.3 GM/dL (11.7-16.9); LYMPH % 6.9 % (8-40); MCH 30.9 pg (25.7-33.7); MEAN CELL VOLUME 96.6 fl (80-96); MEAN PLT VOLUME 7.3 fl (7.5-11.1); MONO % 5.2 % (3.8-10.2); NEUT % 86.2 % (42.8-82.8); PLATELET COUNT 280 10^3/uL (134-434); RBC 3.01 M/mm3 (4.00-5.60); RDW 17.5 % (11.9-15.9); WHITE BLOOD COUNT 13.1 K/mm3 (4.0-10.0)
[2022-01-31 07:39] LABS: CALCIUM 9.5 mg/dL (8.5-10.1)
[2022-01-31 07:40] LABS: ALBUMIN 1.5 g/dl (3.4-5.0); BLOOD UREA NITROGEN 92.9 mg/dL (7-18)
[2022-01-31 07:44] LABS: BILIRUBIN,TOTAL 0.4 mg/dL (0.2-1); TOT PROT 7.2 g/dl (6.4-8.2)
[2022-01-31] MEDS: ERTAPENEM SODIUM 0.5 GM in SODIUM CHLORIDE 50 ML IVPB SCH (09:27)
[2022-01-31] MEDS: AMINO ACIDS/PROTEIN HYDROLYS 30 ML LIQUID.PKT PO SCH ×2 (09:27→17:14)
[2022-01-31] MEDS: ARTIFICIAL TEARS (POLYVINYL ALCOHOL) OPTH DROPS OU SCH ×2 (09:28→22:48)
[2022-01-31] MEDS: METOPROLOL TARTRATE 25 MG TABLET (FP) GT SCH ×2 (09:29→22:48)
[2022-01-31] MEDS: FUROSEMIDE 40 MG/5 ML UNIT-DOSE CUP PO SCH (09:29)
[2022-01-31] MEDS: MULTIVITAMINS (DAILY MVI) TABLET (FP) PO SCH (09:29)
[2022-01-31] MEDS: levETIRAcetam 500 MG/5 ML ORAL SOLUTION (UNIT-DOSE CUPS) GT SCH ×2 (09:29→22:48)
[2022-01-31] MEDS: ZINC SULFATE 220 MG CAPSULE (FP) PO SCH (09:29)
[2022-01-31] MEDS: PANTOPRAZOLE SODIUM 40 MG VIAL IVPUSH SCH ×2 (09:29→22:48)
[2022-01-31] MEDS: SCOPOLAMINE HYDROBROMIDE 1 PATCH PATCH.TD72 TD SCH (12:35)
[2022-01-31] MEDS: SODIUM HYPOCHLORITE 0.25%- 473 ML BULK BOTTLE TP SCH (22:47)
[2022-02-01] MEDS: MULTIVITAMINS (DAILY MVI) TABLET (FP) PO SCH (10:24)
[2022-02-01] MEDS: AMINO ACIDS/PROTEIN HYDROLYS 30 ML LIQUID.PKT PO SCH ×2 (10:24→18:00)
[2022-02-01] MEDS: PANTOPRAZOLE SODIUM 40 MG VIAL IVPUSH SCH ×2 (10:24→22:32)
[2022-02-01] MEDS: METOPROLOL TARTRATE 25 MG TABLET (FP) GT SCH ×2 (10:24→22:32)
[2022-02-01] MEDS: ZINC SULFATE 220 MG CAPSULE (FP) PO SCH (10:24)
[2022-02-01] MEDS: levETIRAcetam 500 MG/5 ML ORAL SOLUTION (UNIT-DOSE CUPS) GT SCH ×2 (10:24→22:32)
[2022-02-01] MEDS: FUROSEMIDE 40 MG/5 ML UNIT-DOSE CUP PO SCH (10:25)
[2022-02-01] MEDS: ERTAPENEM SODIUM 0.5 GM in SODIUM CHLORIDE 50 ML IVPB SCH (10:25)
[2022-02-01] MEDS: ARTIFICIAL TEARS (POLYVINYL ALCOHOL) OPTH DROPS OU SCH ×2 (10:25→22:31)
[2022-02-01 13:48] LABS: HEMATOCRIT 29.7 % (35.4-49); HEMOGLOBIN 9.6 GM/dL (11.7-16.9); MCH 31.3 pg (25.7-33.7); MCHC 32.3 g/dl (32.0-35.9); MEAN CELL VOLUME 96.7 fl (80-96); RBC 3.07 M/mm3 (4.00-5.60); WHITE BLOOD COUNT 12.1 K/mm3 (4.0-10.0)
[2022-02-01 13:49] LABS: BASO % 0.5 % (0-2.0); LYMPH % 5.3 % (8-40); MEAN PLT VOLUME 6.9 fl (7.5-11.1); MONO % 4.9 % (3.8-10.2); NEUT % 88.3 % (42.8-82.8); PLATELET COUNT 299 10^3/uL (134-434); RDW 17.5 % (11.9-15.9)
[2022-02-01 14:12] LABS: ALBUMIN 1.5 g/dl (3.4-5.0); BLOOD UREA NITROGEN 93.9 mg/dL (7-18); CALCIUM 9.8 mg/dL (8.5-10.1); MAGNESIUM 2.3 mg/dL (1.8-2.4)
[2022-02-01 14:15] LABS: CREATININE 2.8 mg/dL (0.55-1.3); PHOSPHOROUS 3.3 mg/dL (2.5-4.9)
[2022-02-01 14:17] LABS: BILIRUBIN,TOTAL 0.4 mg/dL (0.2-1); TOT PROT 7.4 g/dl (6.4-8.2)
[2022-02-02] MEDS ORDERED: PANTOPRAZOLE SOD 40 MG SUSPENSION PACKET PO SCH (10:00)
[2022-02-02] MEDS: METOPROLOL TARTRATE 25 MG TABLET (FP) GT SCH ×2 (10:15→21:29)
[2022-02-02] MEDS: levETIRAcetam 500 MG/5 ML ORAL SOLUTION (UNIT-DOSE CUPS) GT SCH ×2 (10:15→21:29)
[2022-02-02] MEDS: AMINO ACIDS/PROTEIN HYDROLYS 30 ML LIQUID.PKT PO SCH ×2 (10:15→18:32)
[2022-02-02] MEDS: MULTIVITAMINS (DAILY MVI) TABLET (FP) PO SCH (10:15)
[2022-02-02] MEDS: ARTIFICIAL TEARS (POLYVINYL ALCOHOL) OPTH DROPS OU SCH ×2 (10:36→21:30)
[2022-02-02] MEDS: ERTAPENEM SODIUM 0.5 GM in SODIUM CHLORIDE 50 ML IVPB SCH (10:52)
[2022-02-02] MEDS ORDERED: POTASSIUM CHLORIDE ORAL LIQUID 20 MEQ/15 ML PO ONE (12:56)
[2022-02-02] MEDS ORDERED: FUROSEMIDE 40 MG/5 ML UNIT-DOSE CUP PO ONE (12:56)
[2022-02-02] MEDS: SODIUM HYPOCHLORITE 0.25%- 473 ML BULK BOTTLE TP SCH (17:00)
[2022-02-03] MEDS: AMINO ACIDS/PROTEIN HYDROLYS 30 ML LIQUID.PKT PO SCH (08:30)
[2022-02-03] MEDS: ARTIFICIAL TEARS (POLYVINYL ALCOHOL) OPTH DROPS OU SCH (09:44)
[2022-02-03] MEDS: levETIRAcetam 500 MG/5 ML ORAL SOLUTION (UNIT-DOSE CUPS) GT SCH (09:45)
[2022-02-03] MEDS: ERTAPENEM SODIUM 0.5 GM in SODIUM CHLORIDE 50 ML IVPB SCH (09:45)
[2022-02-03] MEDS: METOPROLOL TARTRATE 25 MG TABLET (FP) GT SCH (09:45)
[2022-02-03] MEDS: MULTIVITAMINS (DAILY MVI) TABLET (FP) PO SCH (09:45)
[2022-02-03 11:11] VITALS: BP 132/79; PULSE 80; TEMP 97.5
== END 2022-02-03 10:45 | DRG 870 ==
LOC: JER 02:43 → JERBED 08:40 → J2W 18:44
PROVIDERS: ADMIT Family Medicine; ATTEND Family Medicine
PROC: 5A1955Z Respiratory Ventilation, Greater than 96 Consecutive Hours (ICD-10-PCS; principal; 2022-01-25)
PROC: 3E0G76Z Introduction of Nutritional Substance into Upper GI, Via Natural or Artificial Opening (ICD-10-PCS; 2022-01-27)
DX: A41.59 Other Gram-negative sepsis (principal); L89.154 Pressure ulcer of sacral region, stage 4; L89.224 Pressure ulcer of left hip, stage 4; R53.2 Functional quadriplegia; J18.9 Pneumonia, unspecified organism; N17.9 Acute kidney failure, unspecified; N39.0 Urinary tract infection, site not specified; Z16.24 Resistance to multiple antibiotics; R64 Cachexia; J96.10 Chronic respiratory failure, unspecified whether with hypoxia or hypercapnia; L89.312 Pressure ulcer of right buttock, stage 2; L89.892 Pressure ulcer of other site, stage 2; D72.829 Elevated white blood cell count, unspecified; F03.90 Unspecified dementia, unspecified severity, without behavioral disturbance, psychotic disturbance, mood disturbance, and anxiety; I25.10 Atherosclerotic heart disease of native coronary artery without angina pectoris; I48.91 Unspecified atrial fibrillation; E78.5 Hyperlipidemia, unspecified; K21.9 Gastro-esophageal reflux disease without esophagitis; M10.9 Gout, unspecified; I12.9 Hypertensive chronic kidney disease with stage 1 through stage 4 chronic kidney disease, or unspecified chronic kidney disease; N18.9 Chronic kidney disease, unspecified; E87.5 Hyperkalemia; D69.6 Thrombocytopenia, unspecified; Z86.718 Personal history of other venous thrombosis and embolism; Z93.1 Gastrostomy status; Z93.0 Tracheostomy status; Z68.23 Body mass index [BMI] 23.0-23.9, adult
CPT/HCPCS: 36415; 36430; 71045-TC-FY; 76870-TC; 80048; 80053; 81003; 82962; 83735; 84100; 84443; 85025; 85027; 85610; 85730; 86850; 86900; 86901; 86922; 87040; 87086; 87186; 90686; 93005; 93010; 94002; 94640; 99291; 99292; C9803-CS; G0008; P9058; U0003; U0005